=== PATIENT | female | born 1950 | race Caucasian/White ===

== ENCOUNTER → 2018-04-12 | Outpatient (CLI) | payer MEDICARE, MEDICAID ==
[~2018-04-12] MED LIST: AMLO10TA5; CEFTIN PO; CEFU500T5 PO; CIPR500T4 PO; CIPR500T78 PO; CPR500T PO; CRANBERRY PO; DCS100C PO; FLX20C; FLX20C PO; GLUCO/CHON; HCT25T; HYDR-1231 PO; HYDROCHLOROT 25 MG; HYOS0.1216 PO; HYOS0.1217 PO; IBUP400T22; LEVO500T69 PO; LISI10TA2 PO; LOSA1TAB15 PO; METO-354 PO; METO5TAB79 PO; METR500T PO; METR500T21 PO; NEBI20TA2 PO; NFNEB10T PO; NFPRILOC40 PO; OMEP-10 PO; OMEP-254 PO; ONDA-42 SL; ONDA4TAB8 PO; POTA8CAP9 PO; TRAM-21 PO; VORT20TA PO; [UNRECOGNIZED DRUG - CODE] PO; [UNRECOGNIZED DRUG - OTHER] PO
--- NOTE | 2018-04-12 17:08 | Diagnostic Imaging Report ---
INDICATION: Routine screening. Comparison is made with prior mammogram from 06/13/2013 and 09/02/2011. 2-D and 3-D bilateral screening mammography was performed with CAD. The current study was also evaluated with a Computer Aided Detection (CAD) system. FINDINGS: Both breasts are heterogeneously dense, limiting the sensitivity of mammography. Fibronodular parenchymal pattern appears to be stable. No dominant mass or malignant-appearing microcalcifications are seen. The axillae are unremarkable. IMPRESSION: No mammographic features suspicious for malignancy are identified. ACR BI-RADS Category 2: Benign findings. Result letter will be mailed to the patient. Note: At least 10% of breast cancer is not imaged by mammography. Dictated by: Dictated on workstation # [id number]
== END ==
LOC: RAD 07:56
PROVIDERS: ATTEND Nurse Practitioner Community Health
DX: Z12.31 Encounter for screening mammogram for malignant neoplasm of breast (principal)
CPT/HCPCS: 77067

== ENCOUNTER 2018-05-07 05:36 | Outpatient (CLI) | payer MEDICARE, MEDICAID ==
[~2018-05-07] VITALS: Ht 172.7 cm; Wt 127.9 kg
[~2018-05-07 05:36] MED LIST changes: -LISI10TA2 PO
[2018-05-07] MEDS ORDERED: LISI10TA2 PO (12:57)
== END 2018-05-07 13:00 | disposition home or self-care (01) ==
LOC: PREOP 05:36
PROVIDERS: ATTEND Surgery
DX: Z01.818 Encounter for other preprocedural examination (principal)

== ENCOUNTER → 2019-04-17 | Outpatient (CLI) | payer MEDICAID, MEDICARE, OTHER ==
[~2019-04-17] MED LIST changes: +LISI10TA2 PO; +METR-145 PO; -METR500T21 PO
--- NOTE | 2019-04-17 18:21 | Diagnostic Imaging Report ---
EXAMINATION: Digital mammogram bilateral screening. The current study was also evaluated with a Computer Aided Detection (CAD) system. 3-D tomosynthesis was also performed and reviewed. INDICATION: Screening. This study was compared to the prior exams of 04/12/2018 and 06/13/2013. At this time, there are no current complaints. FINDINGS: There are scattered fibroglandular densities in both breasts which could obscure a lesion. When compared to the prior study, there has been no significant change. There is no primary or secondary sign of malignancy noted. The 3D tomographic views also fail to show any sign of malignancy. IMPRESSION: There is no evidence of malignancy. ACR BI-RADS Category 1: Negative. Result letter will be mailed to the patient. Note: At least 10% of breast cancer is not imaged by mammography. Dictated by: Dictated on workstation # [id number]
== END ==
LOC: RAD 07:12
PROVIDERS: ATTEND Nurse Practitioner Community Health
DX: Z12.31 Encounter for screening mammogram for malignant neoplasm of breast (principal)
CPT/HCPCS: 77067

== ENCOUNTER → 2020-06-08 | Outpatient (CLI) | payer MEDICARE, MEDICAID | LOC: CARD 14:30 | PROVIDERS: ATTEND Nurse Practitioner Family | DX: I11.9 Hypertensive heart disease without heart failure (principal); I34.0 Nonrheumatic mitral (valve) insufficiency; I10 Essential (primary) hypertension; E78.5 Hyperlipidemia, unspecified; G47.30 Sleep apnea, unspecified; R79.82 Elevated C-reactive protein (CRP) | CPT/HCPCS: 93306 ==

== ENCOUNTER → 2020-06-12 | Outpatient (CLI) | payer MEDICARE, MEDICAID ==
[~2020-06-12] VITALS: Ht 172 cm; Wt 130.0 kg
[~2020-06-12] MED LIST changes: +CATHETER FLUSH 10 ML SYR IV PRN; +REGADENOSON 0.4 MG/5 ML SYR (LEXISCAN) IV ONE
--- NOTE | 2020-06-15 12:25 | STRESS TEST ---
DATE OF SERVICE: RESTING AND POST REGADENOSON TECHNETIUM-99M TETROFOSMIN SPECT CT IMAGING ORDERING PHYSICIAN: Kristina Guerrero APRN PRIMARY PHYSICIAN: [facility]. CLINICAL DIAGNOSES: Shortness of breath, hypertension. Baseline images were carried out after injection of 10.91 mCi of technetium-99m Tetrofosmin. This was followed by 0.4 mg regadenoson and 32 mCi of technetium-99m Tetrofosmin for stress imaging. The electrocardiogram shows sinus rhythm at baseline and did not change significantly with regadenoson infusion. The patient tolerated the procedure well. Review of images at rest and following stress indicate a small to moderate sized belinda-apical perfusion defect. Gated images show normal global left ventricular systolic function with normal regional wall motion. Left ventricular ejection fraction is calculated to be 75%. Left ventricular end diastolic volume is 71 mL. TID is absent (1.1). CONCLUSIONS: 1. This study is suggestive of a small to moderate amount of belinda-apical ischemia. 2. Normal regional wall motion. 3. Normal global left ventricular systolic function with a calculated ejection fraction of 75%. Job ID: [id number] DocumentID: [id number] Dictated Date: 06/15/2020 09:25:10 Banquet Chef Date: 06/15/2020 12:24:52 Dictated By: MEENA GARCIA MD, MA, FACP, FACC,
== END ==
LOC: CARD 07:30
PROVIDERS: ATTEND Nurse Practitioner Family
DX: I10 Essential (primary) hypertension (principal); E78.5 Hyperlipidemia, unspecified; G47.30 Sleep apnea, unspecified; R79.82 Elevated C-reactive protein (CRP); R06.00 Dyspnea, unspecified; R06.02 Shortness of breath
CPT/HCPCS: 78452; 93017; A9502

== ENCOUNTER 2020-06-30 06:57 | Day surgery (SDC) | payer MEDICARE, MEDICAID ==
[2020-06-30] VITALS (8 sets, daily range): BP systolic 127–155; BP diastolic 65–78
[~2020-06-30] VITALS: Ht 173 cm; Wt 130.0 kg
[~2020-06-30 06:57] MED LIST changes: -CATHETER FLUSH 10 ML SYR IV PRN; -REGADENOSON 0.4 MG/5 ML SYR (LEXISCAN) IV ONE
[2020-06-30] MEDS ORDERED: HEParin (CATH LAB) 2,000 ML IV ONE (07:00)
[2020-06-30] MEDS ORDERED: NS IV 1000 ML 1,000 ML ONE (07:00)
[2020-06-30] MEDS ORDERED: LIDOCAINE 1% INJ 20 ML 20 ML VIAL ONE (07:00)
[2020-06-30] MEDS ORDERED: NS IV 1000 ML 1,000 ML IV SCH ×2 (07:15→09:22)
[2020-06-30 07:24] LABS: HEMOGLOBIN 14.3 g/dL (11.5-16.0); WHITE BLOOD COUNT 12.3 10^3/uL (4.3-11.0)
[2020-06-30] MEDS ORDERED: ASPI-999 PO (07:28)
[2020-06-30] MEDS ORDERED: BUSP5TAB59 PO (07:28)
[2020-06-30] MEDS ORDERED: NEBI20TA2 PO (07:28)
[2020-06-30] MEDS ORDERED: AMLO10TA7 PO (07:28)
[2020-06-30 07:40] LABS: INR 0.9 (0.8-1.4); PROTHROMBIN TIME PATIENT 12.9 SEC (12.2-14.7)
[2020-06-30 07:48] LABS: ALANINE AMINOTRANSFERASE 32 U/L (0-55); ALBUMIN 4.2 GM/DL (3.2-4.5); ALKALINE PHOSPHATASE 104 U/L (40-136); BILIRUBIN,TOTAL 0.7 MG/DL (0.1-1.0); BUN/CREATININE RATIO 26; CALCIUM 9.5 MG/DL (8.5-10.1); CARBON DIOXIDE 24 MMOL/L (21-32); CHLORIDE 103 MMOL/L (98-107); CHOLESTEROL 209 MG/DL (< 200); CREATININE SERUM 0.74 MG/DL (0.60-1.30); GFR ESTIMATED > 60; GLUCOSE 104 MG/DL (70-105); HDL CHOLESTEROL 54 MG/DL (40-60); POTASSIUM 4.3 MMOL/L (3.6-5.0); SODIUM 143 MMOL/L (135-145); TOTAL PROTEIN 7.7 GM/DL (6.4-8.2); TRIGLYCERIDES 205 MG/DL (<150); VLDL CHOLESTEROL 41 MG/DL (5-40)
[2020-06-30] MEDS ORDERED: MIDAZOLAM 5 MG/5 ML (VERSED) VIAL ONE (08:29)
[2020-06-30] MEDS ORDERED: fentaNYL INJECTION 100 MCG/2 ML AMP ONE (08:29)
--- NOTE | 2020-06-30 09:22 | Cardiac Procedure Note-CS/ASA ---
Pre-Procedure Note Pre-Op Procedure Note H&P Reviewed The H&P was reviewed, patient examined and no changes noted. Date H&P Reviewed: Jun 30, 2020 Time H&P Reviewed: 08:55 Conscious Sedation Pre-Proced Time 08:55 ASA Score 3 For ASA 3 and 4: Consider anesthesia and medical clearance. Also, for patients with a history of failed moderate sedation consider anesthesia. Airway Lungs Heart ASA score ASA 1: a normal healthy patient ASA 2: a patient with a mild systemic disease (mid diabetes, controlled hypertension, obesity ASA 3: a patient with a severe systemic disease that limits activity (angina, COPD, prior Myocardial infarction) ASA 4: a patient with an incapacitating disease that is a constant threat to life (CHF, renal failure) ASA 5: a moribund patient not expected to survive 24 hrs. (ruptured aneurysm) ASA 6: a declared brain- patient whose organs are being harvested. For emergent operations, add the letter E after the classification Mallampati Classification Grade 2 Sedation Plan Analgesia, Amnesia, Plan communicated to team members, Discussed options with patient/fam, Discussed risks with patient/fam The patient is an appropriate candidate to undergo the planned procedure, sedation, and anesthesia. The patient immediately re-assessed prior to indication. MEENA GARCIA MD FACP FAC CCDS Jun 30, 2020 09:22
--- NOTE | 2020-06-30 09:26 | Discharge Inst-Cardiology ---
Discharge Inst-Cardiac Discharge Medications Continued Medications: Amlodipine Besylate (Amlodipine Besylate) 10 Mg Tablet 10 MG PO DAILY, TAB Aspirin (Aspirin) 81 Mg Tab.chew 81 MG PO DAILY, TAB Buspirone HCl (Buspirone HCl) 5 Mg Tablet 5 MG PO BID, TAB Nebivolol HCl (Bystolic) 20 Mg Tablet 20 MG PO DAILY, TAB TAKES 2 OF THE (20 MG TABLETS) DAILY Omeprazole Magnesium (Omeprazole Magnesium) 20 Mg Capsule.dr 20 MG PO DAILY PRN for INDIGESTION, MEENA HICKS MD FACP FAC CCDS Jun 30, 2020 09:26
--- NOTE | 2020-06-30 09:27 | Discharge Inst-Post CATH ---
Discharge Inst-CATH/EP Post Cardiac Cath/EP D/C Inst Follow Up/Plan F/u with Dr Wray in 2 weeks ACTIVITY * Go Home directly and rest. * Limit activity of the leg (or wrist if it was used) for 7 days including aerobics, swimming, jogging, bicycling, etc. * Restrict stair-climbing for 7 days if possible, if not, climb up with your n on-cath leg, then bring together on the same step. * Avoid lifting, pushing, pulling or excessive movement of the affected ex tremity for 7 days. * Customary sexual activity may be resumed after 2 days-use caution not to use a position that strains or causes pain to the affected extremity. * No driving for 24 hours. * NO SMOKING. * Avoid straining for bowel movements for 7 days. * Gentle walking on level ground is allowed. * Returning to work will depend on the type of procedure and the results. Your doctor will discuss this with you. CALL YOUR DOCTOR FOR ANY OF THE FOLLOWING: *If bleeding from the puncture site occurs- Apply gentle pressure to site with clean cloth and call your doctor or EMS. * If a knot or lump forms under the skin, increases in size, or causes pain. * If bruising appears to be worsening or moving further down your leg instead of disappearing. * Temperature above 101 F. CARE OF YOUR GROIN INCISION; * Bruising or purple discoloration of the skin near the puncture site is common. * You may shower only, no bathtub bathing for 5 days. Be careful to avoid slipping as your leg may feel stiff. * If a closure device was used on your femoral artery, please see the attached guide regarding care of the device and your leg. * Leave dressing on FOR 24 hours. CARE OF YOUR WRIST INCISION; * Bruising or purple discoloration of the skin near the puncture site is common. * You may shower. * DO NOT submerge wrist. * Leave dressing on FOR 24 hours. MEENA WRAY MD [facility] CCDS Jun 30, 2020 09:27
[2020-06-30] MEDS ORDERED: PATIENT MAY USE OWN MEDS, ALL PO SCH (09:30)
--- NOTE | 2020-06-30 10:12 | CARDIAC CATHETERIZATION ---
DATE OF SERVICE: 06/30/2020 CARDIAC CATHETERIZATION REPORT The patient is a 69-year-old lady who has had chest discomfort and shortness of breath. Myocardial perfusion imaging was indicative of anteroapical ischemia. Cardiac catheterization was carried out after having obtained an informed consent. DESCRIPTION OF PROCEDURE: She was brought to the cardiac catheterization laboratory in a fasting state. Right groin was prepared and draped in the usual sterile fashion. Lidocaine 1% was used for local anesthesia. Modified Seldinger technique was used to advance a 5-Dutch sheath into the right femoral artery, 5-Dutch JL4 catheter was used for left coronary angiography, 5-Dutch JR4 catheter was used for right coronary angiography, 5-Dutch pigtail catheter was used for left heart catheterization and left ventricular angiography. Angiography of the right femoral artery was carried out through the sheath. Mynx was used to achieve hemostasis following sheath removal. She tolerated the procedure well. HEMODYNAMICS: Left ventricular end-diastolic pressure following coronary angiography was 16 mmHg. There was no significant pressure gradient on pullback across the aortic valve. Ascending aortic pressure was 133/76 with a mean of 97 mmHg. CORONARY ANGIOGRAPHY: Left main coronary artery, left anterior descending artery, left circumflex artery, right coronary artery do not exhibit any angiographically significant disease. Right coronary artery is dominant. LEFT VENTRICULAR ANGIOGRAPHY: Left ventricular angiography was carried out in the right anterior oblique projection. Global left ventricular systolic function is normal. No regional wall motion abnormality was seen. Left ventricular ejection fraction is approximately 60%. CONCLUSIONS: 1. No angiographically significant coronary artery disease. 2. Normal global left ventricular systolic function with ejection fraction of 60%. 3. Mild elevation of left ventricular end-diastolic pressure. DISCUSSION AND RECOMMENDATIONS: Based on results of the study, chest discomfort does not appear to be of coronary origin. Myocardial perfusion imaging appears to have been false positive. Continuing risk factor modification is advised. Outpatient followup is advised. Job ID: [id number] DocumentID: [id number] Dictated Date: 06/30/2020 09:44:44 Technology Solutions Architect Date: 06/30/2020 10:11:44 Dictated By: MEENA GARCIA MD, MA, FACP, FACC,
== END 2020-06-30 12:50 | disposition home or self-care (01) ==
LOC: CATH 06:57 → SDC 09:36 → CATH 12:50
PROVIDERS: ATTEND Internal Medicine Cardiovascular Disease
DX: R06.00 Dyspnea, unspecified (principal); R07.89 Other chest pain; R53.83 Other fatigue; I10 Essential (primary) hypertension; G47.33 Obstructive sleep apnea (adult) (pediatric); K21.9 Gastro-esophageal reflux disease without esophagitis; K58.9 Irritable bowel syndrome, unspecified; E66.9 Obesity, unspecified; F32.9 Major depressive disorder, single episode, unspecified; F41.9 Anxiety disorder, unspecified; Z91.19 Patient's noncompliance with other medical treatment and regimen; Z79.899 Other long term (current) drug therapy; Z68.41 Body mass index [BMI] 40.0-44.9, adult; Z79.82 Long term (current) use of aspirin
CPT/HCPCS: 36430; 80053; 80061; 85027; 85610; 85730; 87081; 93458; C1760; C1894; 36415

== ENCOUNTER 2021-02-24 16:42 | Emergency (ER) | payer MEDICARE, MEDICAID ==
[~2021-02-24] VITALS: Ht 172.7 cm; Wt 113.4 kg
[~2021-02-24 16:42] MED LIST changes: +AMLO-251 PO; +ASPI-999 PO; +BUSP5TAB59 PO; +CIPR500T5 PO; -LISI10TA2 PO; +LISI10TA25 PO
[2021-02-24] MEDS ORDERED: ONDANSETRON 4 MG/2 ML (SDV) Z0FRAN IVP ONE (17:00)
[2021-02-24] MEDS ORDERED: NS IV 1000 ML 1,000 ML IV ONE ×2 (17:00→18:30)
[2021-02-24 17:51] LABS: BASOPHILS % (AUTO) 0 % (0-10); EOSINOPHILS % (AUTO) 0 % (0-10); HEMATOCRIT 44 % (35-52); HEMOGLOBIN 14.7 g/dL (11.5-16.0); LYMPHOCYTES # (AUTO) 0.8 10^3/uL (1.0-4.0); LYMPHOCYTES % (AUTO) 7 % (12-44); MEAN CORPUSCULAR HEMOGLOBIN 30 pg (25-34); MEAN CORPUSCULAR HGB CONC 34 g/dL (32-36); MEAN CORPUSCULAR VOLUME 89 fL (80-99); MEAN PLATELET VOLUME 11.4 fL (9.0-12.2); MONOCYTES # (AUTO) 0.2 10^3/uL (0.0-1.0); MONOCYTES % (AUTO) 2 % (0-12); NEUTROPHILS # (AUTO) 10.8 10^3/uL (1.8-7.8); NEUTROPHILS % (AUTO) 91 % (42-75); PLATELET COUNT 312 10^3/uL (130-400); WHITE BLOOD COUNT 11.9 10^3/uL (4.3-11.0)
--- NOTE | 2021-02-24 17:56 | ED GI ---
General Chief Complaint: Abdominal/GI Problems Stated Complaint: VOMMITTING Nursing Triage Note: PT AMBULATE TO ROOM 02 WITH C/O VOMITING "EVERY 2-3 MINUTES SINCE 0800 THIS MORNING". PT DENIES DIARRHEA. Sepsis Screen: No Definite Risk History of Present Illness Date Seen by Provider: Feb 24, 2021 Time Seen by Provider: 17:00 Initial Comments This is a well-appearing 70-year-old female who presents to the ER with complaints of nausea vomiting since this morning. States she had sudden onset of symptoms and has been vomiting nonstop today. She has continued to dry heave and expel stomach acid. Has not taken anything prior to arrival. Is unable to keep anything down even fluids. Denies fever, chills, cough, shortness of breath, chest pain, abdominal pain, diarrhea, dysuria, or hematuria. Allergies and Home Medications Allergies Coded Allergies: No Known Drug Allergies (Unverified , 05/07/18) Home Medications Amlodipine Besylate 10 Mg Tablet, 10 MG PO DAILY, (Reported) Aspirin 81 Mg Tab.chew, 81 MG PO DAILY, (Reported) Buspirone HCl 5 Mg Tablet, 5 MG PO BID, (Reported) Nebivolol HCl 20 Mg Tablet, 20 MG PO DAILY, (Reported) TAKES 2 OF THE (20 MG TABLETS) DAILY Omeprazole Magnesium 20 Mg Capsule.dr, 20 MG PO DAILY PRN for INDIGESTION, (Reported) Promethazine HCl 25 Mg Tablet, 25 MG PO Q6H PRN for NAUSEA/VOMITING Prescribed by: ALEX BLAS on 02/24/211939 Patient Home Medication List Home Medication List Reviewed: Yes Review of Systems Review of Systems Constitutional: no symptoms reported EENTM: No Symptoms Reported Respiratory: No Symptoms Reported Cardiovascular: No Symptoms Reported Gastrointestinal: See HPI Genitourinary: No Symptoms Reported Musculoskeletal: no symptoms reported Skin: no symptoms reported Psychiatric/Neurological: No Symptoms Reported Endocrine: No Symptoms Reported Hematologic/Lymphatic: No Symptoms Reported Past Gwgernz-Chpcgh-Baqsue Hx Patient Social History Alcohol Use: Denies Use Smoking Status: Never a Smoker Recent Infectious Disease Expo: No Recent Hopitalizations: No Immunizations Up To Date Tetanus Booster (TDap): Unknown PED Vaccines UTD: No Date of Pneumonia Vaccine: Jul 10, 2019 Date of Influenza Vaccine: Jul 10, 2019 Seasonal Allergies Seasonal Allergies: No Past Medical History Surgeries: Yes (LAP OVARIAN CYSTECTOMY, ERCP, COLONOSCOPY) Gallbladder Respiratory: No Sleep Apnea Currently Using CPAP: No Cardiac: Yes Hypertension Neurological: No Reproductive Disorders: No Female Reproductive Disorders: Ovarian Cyst Sexually Transmitted Disease: No HIV/AIDS: No UTI-Chronic Gastrointestinal: Yes Gastroesophageal Reflux, Diverticulosis, Hiatal Hernia Musculoskeletal: No Endocrine: No HEENT: No Loss of Vision: Bilateral Hearing Impairment: Denies Cancer: No Psychosocial: Yes Anxiety Integumentary: Yes Psoriasis Blood Disorders: No Adverse Reaction/Blood Tranf: No (N/A) Family Medical History No Family History of: AIDS Abdominal aortic aneurysm [place]'s disease Alcoholism Alzheimer's disease Aphasia Arthritis Asthma Cancer of mouth Cardiovascular disease Cataracts Colon cancer Completed stroke Congenital disease Congenital heart disease Coronary thrombosis Cystic fibrosis Deafness or hearing loss Dementia Diabetes mellitus Drug abuse Dysphasia Fibrocystic disease of breast Gastroenteritis Glaucoma Headache disorder Hypercholesterolemia Hypertension Infertility Kidney disease Myocardial infarction Neoplasm (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 0.0oz. 127.481992nw; 38.00 BMI Method:Stated General Appearance: WD/WN, no apparent distress HEENT: PERRL/EOMI, normal ENT inspection, pharynx normal Neck: full range of motion, normal inspection Respiratory: lungs clear, normal breath sounds, no respiratory distress, no accessory muscle use Cardiovascular: regular rate, rhythm, no murmur Gastrointestinal: normal bowel sounds, non tender, soft Extremities: normal range of motion, non-tender, normal inspection Neurologic/Psychiatric: no motor/sensory deficits, alert, normal mood/affect, oriented x 3 Skin: normal color, warm/dry Progress/Results/Core Measures Results/Orders Lab Results Laboratory Tests Test 02/24/21 17:16 02/24/21 18:43 Range/Units White Blood Count 11.9 H 4.3-11.0 10^3/uL Red Blood Count 4.89 3.80-5.11 10^6/uL Hemoglobin 14.7 11.5-16.0 g/dL Hematocrit 44 35-52 % Mean Corpuscular Volume 89 80-99 fL Mean Corpuscular Hemoglobin 30 25-34 pg Mean Corpuscular Hemoglobin Concent 34 32-36 g/dL Red Cell Distribution Width 12.2 10.0-14.5 % Platelet Count 312 130-400 10^3/uL Mean Platelet Volume 11.4 9.0-12.2 fL Immature Granulocyte % (Auto) 0 % Neutrophils (%) (Auto) 91 H 42-75 % Lymphocytes (%) (Auto) 7 L 12-44 % Monocytes (%) (Auto) 2 0-12 % Eosinophils (%) (Auto) 0 0-10 % Basophils (%) (Auto) 0 0-10 % Neutrophils # (Auto) 10.8 H 1.8-7.8 10^3/uL Lymphocytes # (Auto) 0.8 L 1.0-4.0 10^3/uL Monocytes # (Auto) 0.2 0.0-1.0 10^3/uL Eosinophils # (Auto) 0.0 0.0-0.3 10^3/uL Basophils # (Auto) 0.0 0.0-0.1 10^3/uL Immature Granulocyte # (Auto) 0.0 0.0-0.1 10^3/uL Neutrophils % (Manual) 90 % Lymphocytes % (Manual) 8 % Monocytes % (Manual) 2 % Eosinophils % (Manual) 0 % Basophils % (Manual) 0 % Band Neutrophils 0 % Blood Morphology Comment NORMAL Sodium Level 139 135-145 MMOL/L Potassium Level 4.0 3.6-5.0 MMOL/L Chloride Level 101 98-107 MMOL/L Carbon Dioxide Level 25 21-32 MMOL/L Anion Gap 13 5-14 MMOL/L Blood Urea Nitrogen 12 7-18 MG/DL Creatinine 0.81 0.60-1.30 MG/DL Estimat Glomerular Filtration Rate > 60 BUN/Creatinine Ratio 15 Glucose Level 145 H 70-105 MG/DL Calcium Level 10.1 8.5-10.1 MG/DL Corrected Calcium 8.5-10.1 MG/DL Total Bilirubin 0.8 0.1-1.0 MG/DL Aspartate Amino Transf (AST/SGOT) 36 H 5-34 U/L Alanine Aminotransferase (ALT/SGPT) 62 H 0-55 U/L Alkaline Phosphatase 92 40-136 U/L Total Protein 8.2 6.4-8.2 GM/DL Albumin 4.6 H 3.2-4.5 GM/DL Urine Color YELLOW Urine Clarity CLEAR Urine pH 7.5 5-9 Urine Specific [place] 1.015 L 1.016-1.022 Urine Protein NEGATIVE NEGATIVE Urine Glucose (UA) NEGATIVE NEGATIVE Urine Ketones 1+ H NEGATIVE Urine Nitrite NEGATIVE NEGATIVE Urine Bilirubin NEGATIVE NEGATIVE Urine Urobilinogen 1.0 < = 1.0 MG/DL Urine Leukocyte Esterase NEGATIVE NEGATIVE Urine RBC (Auto) TRACE-I NEGATIVE Urine RBC NONE /HPF Urine WBC NONE /HPF Urine Squamous Epithelial Cells NONE /HPF Urine Crystals NONE /LPF Urine Bacteria NEGATIVE /HPF Urine Casts NONE /LPF Urine Mucus NEGATIVE /LPF Urine Culture Indicated NO My Orders Orders - ALEX BLAS ROOF CEMENT AND PAINT MAKER HELPER Ua Culture If Indicated (02/24/21 17:00) Ondansetron Injection (Zofran Injectio (02/24/21 17:00) Ns Iv 1000 Ml (Sodium Chloride 0.9%) (02/24/21 17:00) Cbc With Automated Diff (02/24/21 17:45) Comprehensive Metabolic Panel (02/24/21 17:45) Manual Differential (02/24/21 17:16) Promethazine Injection (Phenergan Injec (02/24/21 18:00) Ns Iv 1000 Ml (Sodium Chloride 0.9%) (02/24/21 18:30) Diphenhydramine Injection (Benadryl Inje (02/24/21 19:45) Ketorolac Injection (Toradol Injection) (02/24/21 19:45) Rx-Promethazine Hcl (Rx-Phenergan Supp) (02/24/21 19:42) Ketorolac Injection (Toradol Injection) (02/24/21 19:38) Medications Given in ED Current Medications Medications Dose Ordered Sig/Dane Route Start Time Stop Time Status Last Admin Dose Admin Diphenhydramine HCl 25 mg ONCE ONCE IM 02/24/21 19:45 02/24/21 19:46 DC 02/24/21 20:00 25 MG Ketorolac Tromethamine 30 mg STK-MED ONCE .ROUTE 02/24/21 19:38 02/24/21 19:47 DC 02/24/21 20:00 30 MG Ondansetron HCl 4 mg ONCE ONCE IVP 02/24/21 17:00 02/24/21 17:01 DC 02/24/21 17:16 4 MG Promethazine HCl 25 mg ONCE ONCE IVP 02/24/21 18:00 02/24/21 18:01 DC 02/24/21 18:43 25 MG Sodium Chloride 1,000 ml @ 999 mls/hr Q1H ONCE IV 02/24/21 17:00 02/24/21 18:00 DC 02/24/21 17:16 999 MLS/HR Sodium Chloride 1,000 ml @ 999 mls/hr Q1H ONCE IV 02/24/21 18:30 02/24/21 19:30 DC 02/24/21 18:43 999 MLS/HR Vital Signs/I&O 02/24/21 02/24/21 16:51 20:30 Temp 36.2 Pulse 66 76 Resp 16 17 B/P (MAP) 192/111 (138) 135/72 Pulse Ox 97 O2 Delivery Room Air Room Air Blood Pressure Mean: 138 Progress Progress Note : Progress Note Able to get nausea/vomiting under control. Reported feeling much improved. Reviewed discharge POC and she is agreeable with plan. Departure Impression Primary Impression: Gastroenteritis Disposition: 01 HOME, SELF-CARE Condition: Improved Departure-Patient Inst. Decision time for Depature: 19:38 Referrals: [facility] (PCP) Primary Care Physician PARISA SOMMERS (Family) Primary Care Physician Patient Instructions: Viral Gastroenteritis, Adult (DC) Add. Discharge Instructions: Plan: 1. Drink clear liquids until your nausea has resolved. Advance diet as tolerated. 2. Use Phenergan 25mg by mouth every 6 hours as needed for nausea/vomiting. 3. Return to ER for any new, concerning, or worsening symptoms. All discharge instructions reviewed with patient and/or family. Voiced understanding. Scripts Promethazine HCl (Promethazine Tablet) 25 Mg Tablet 25 MG PO Q6H PRN for NAUSEA/VOMITING, #10 TAB 0 Refills Prov: ALEX BLAS ROO[employer] CEMENT AND PA[employer]KER HELPER 02/24/21 ALEX BLAS ROO[employer] CEMENT AND PAINT MAKER HELPER Feb 24, 2021 17:56
[2021-02-24 17:57] LABS: ALBUMIN 4.6 GM/DL (3.2-4.5)
[2021-02-24 17:58] LABS: CHLORIDE 101 MMOL/L (98-107); SODIUM 139 MMOL/L (135-145)
[2021-02-24 17:59] LABS: CALCIUM 10.1 MG/DL (8.5-10.1)
[2021-02-24 18:00] LABS: GLUCOSE 145 MG/DL (70-105); TOTAL PROTEIN 8.2 GM/DL (6.4-8.2)
[2021-02-24] MEDS ORDERED: PROMETHAZINE INJ 25 MG/ML (PHENERGAN) AMP IVP ONE (18:00)
[2021-02-24 18:01] LABS: CARBON DIOXIDE 25 MMOL/L (21-32)
[2021-02-24 18:02] LABS: BILIRUBIN,TOTAL 0.8 MG/DL (0.1-1.0)
[2021-02-24 18:03] LABS: ALKALINE PHOSPHATASE 92 U/L (40-136); CREATININE SERUM 0.81 MG/DL (0.60-1.30); GFR ESTIMATED > 60
[2021-02-24 18:04] LABS: BUN/CREATININE RATIO 15
[2021-02-24 18:06] LABS: ALANINE AMINOTRANSFERASE 62 U/L (0-55)
[2021-02-24 18:17] LABS: BAND NEUTROPHILS 0 %; BASOPHILS % (MANUAL) 0 %; EOSINOPHILS % (MANUAL) 0 %; LYMPHOCYTES % (MANUAL) 8 %; MONOCYTES % (MANUAL) 2 %; NEUTROPHILS % (MANUAL) 90 %; RBC MORPH NORMAL
[2021-02-24 18:52] LABS: BILIRUBIN,URINE NEGATIVE (NEGATIVE); CLARITY,URINE CLEAR; COLOR,URINE YELLOW; GLUCOSE, URINE (UA) NEGATIVE (NEGATIVE); KETONES,URINE 1+ (NEGATIVE); LEUKOCYTE ESTERASE ,URINE NEGATIVE (NEGATIVE); NITRITE,URINE NEGATIVE (NEGATIVE); PH,URINE 7.5 (5-9); PROTEIN,URINE NEGATIVE (NEGATIVE)
[2021-02-24 19:03] LABS: BACTERIA,URINE NEGATIVE /HPF
[2021-02-24] MEDS ORDERED: KETOROLAC 30 MG/ML VIAL ONE (19:38)
[2021-02-24] MEDS ORDERED: PROM25TA14 PO (19:40)
[2021-02-24] MEDS ORDERED: RX-PHENERGAN 25 MG SUPP PPK#3 PR STA (19:42)
[2021-02-24] MEDS ORDERED: KETOROLAC 15 MG/ML VIAL IVP ONE (19:45)
[2021-02-24] MEDS ORDERED: diphenhydrAMINE 50 MG/ML INJ (BENADRYL) IM ONE (19:45)
[2021-02-24 20:30] VITALS: BP 135/72
== END 2021-02-24 20:30 | disposition home or self-care (01) ==
LOC: EDUNIT# 16:42 → ER 16:45
DX: K52.9 Noninfective gastroenteritis and colitis, unspecified (principal); I10 Essential (primary) hypertension; K21.9 Gastro-esophageal reflux disease without esophagitis; F41.9 Anxiety disorder, unspecified; Z79.82 Long term (current) use of aspirin; Z79.899 Other long term (current) drug therapy
CPT/HCPCS: 36415; 80053; 81000; 85007; 85027

== ENCOUNTER 2021-02-28 15:32 | Emergency (ER) | payer MEDICARE, MEDICAID ==
[~2021-02-28 15:32] MED LIST changes: +PROM25TA14 PO
== END 2021-02-28 16:27 | disposition left against medical advice (07) ==
LOC: EDUNIT# 15:32 → ER 15:34
DX: R11.10 Vomiting, unspecified (principal); R19.7 Diarrhea, unspecified

== ENCOUNTER 2021-03-03 11:39 | Observation (INO) | payer MEDICARE, MEDICAID ==
[~2021-03-03] VITALS: Ht 172 cm; Wt 115.0 kg
--- NOTE | 2021-03-03 12:05 | ED Abdominal Pain ---
General Stated Complaint: N/V Source of Information: Patient Exam Limitations: No Limitations History of Present Illness Date Seen by Provider: Mar 03, 2021 Time Seen by Provider: 11:45 Initial Comments Patient is a 70-year-old female who presents to the emergency department today with a chief complaint of nausea and vomiting off and on for the last week. Patient has been seen here in the emergency department with the symptoms as well as at [facility]. Patient states that she has not urinated in a day and a half. She complains of shortness of breath with exertion. She feels generally weak. She feels lightheaded when she gets up and moves around. Patient has never had symptoms like this before. She denies any fevers or chills. No burning with urination. No diarrhea currently or black or bloody stools. Patient states that she is actually very healthy for 70 years of age she only has a history of hypertension. She has been on diet medications prescribed by her primary care provider. She states these medications were recently decreased. Patient states she is unsure of what started her symptoms. She states that 1 day she was eating and the next moment vomiting and has not stopped since. Of note the patient is quite tachycardic on telemetry and on auscultation. She is anywhere from 120 256 beats a minute and an A. fib rhythm. She has no history of atrial fibrillation in the past. All other review of systems reviewed and negative except as stated above. Timing/Duration: 1 Week Severity/Quality: Cramping Location: Generalized Abdomen Associated Symptoms: Nausea/Vomiting (With vomiting), Other ("Black sand" when she vomits) Allergies and Home Medications Allergies Coded Allergies: No Known Drug Allergies (Unverified , 05/07/18) Home Medications Amlodipine Besylate 10 Mg Tablet, 10 MG PO DAILY, (Reported) Aspirin 81 Mg Tab.chew, 81 MG PO DAILY, (Reported) Buspirone HCl 5 Mg Tablet, 5 MG PO BID, (Reported) Nebivolol HCl 20 Mg Tablet, 20 MG PO DAILY, (Reported) TAKES 2 OF THE (20 MG TABLETS) DAILY Omeprazole Magnesium 20 Mg Capsule.dr, 20 MG PO DAILY PRN for INDIGESTION, (Reported) Promethazine HCl 25 Mg Tablet, 25 MG PO Q6H PRN for NAUSEA/VOMITING Prescribed by: ALEX BLAS on 02/24/211939 Patient Home Medication List Home Medication List Reviewed: Yes Review of Systems Review of Systems Constitutional: see HPI EENTM: No Symptoms Reported Respiratory: No Symptoms Reported Cardiovascular: No Symptoms Reported Gastrointestinal: Nausea, Vomiting, Other (Reported "black sand" in her vomitus) Genitourinary: No Symptoms Reported Musculoskeletal: no symptoms reported Skin: no symptoms reported Psychiatric/Neurological: No Symptoms Reported, Weakness, Other (Dizziness with standing) All Other Systems Reviewed Negative Unless Noted: Yes Past Ldzlyvv-Yozgfv-Hhfjmz Hx Patient Social History Recent Hopitalizations: No Immunizations Up To Date Tetanus Booster (TDap): Unknown PED Vaccines UTD: No Date of Pneumonia Vaccine: Jul 10, 2019 Date of Influenza Vaccine: Jul 10, 2019 Seasonal Allergies Seasonal Allergies: No Past Medical History Surgeries: Yes (LAP OVARIAN CYSTECTOMY, ERCP, COLONOSCOPY) Gallbladder Respiratory: No Sleep Apnea Currently Using CPAP: No Cardiac: Yes Hypertension Neurological: No Reproductive Disorders: No Female Reproductive Disorders: Ovarian Cyst Sexually Transmitted Disease: No HIV/AIDS: No UTI-Chronic Gastrointestinal: Yes Gastroesophageal Reflux, Diverticulosis, Hiatal Hernia Musculoskeletal: No Endocrine: No HEENT: No Loss of Vision: Bilateral Hearing Impairment: Denies Cancer: No Psychosocial: Yes Anxiety Integumentary: Yes Psoriasis Blood Disorders: No Adverse Reaction/Blood Tranf: No (N/A) Family Medical History No Family History of: AIDS Abdominal aortic aneurysm [place]'s disease Alcoholism Alzheimer's disease Aphasia Arthritis Asthma Cancer of mouth Cardiovascular disease Cataracts Colon cancer Completed stroke Congenital disease Congenital heart disease Coronary thrombosis Cystic fibrosis Deafness or hearing loss Dementia Diabetes mellitus Drug abuse Dysphasia Fibrocystic disease of breast Gastroenteritis Glaucoma Headache disorder Hypercholesterolemia Hypertension Infertility Kidney disease Myocardial infarction Neoplasm (PT HAD MATERNAL UNCLE WHO FROM BREAST CANCER ) Not obtainable due to adoption Osteoporosis Parkinson's disease Prostate cancer Psychosocial problem Respiratory disorder Seizure disorder Severe allergy Thyroid disease Tuberculosis Visual disorder No Pertinent Family Hx Physical Exam Vital Signs Vital Signs - First Documented 03/03/21 11:39 Temp 36.1 Pulse 120 Resp 16 B/P (MAP) 107/70 (82) Pulse Ox 96 O2 Delivery Room Air Capillary Refill : Height/Weight/BMI Height: 5'8.00" Weight: 282lbs. 0.0oz. 127.004976ml; 38.00 BMI Method:Stated General Appearance: WD/WN, no apparent distress HEENT: other (Dry oral mucosa) Neck: normal inspection Respiratory: normal breath sounds, no respiratory distress, no accessory muscle use Cardiovascular: tachycardia, irregularly irregular Gastrointestinal: non tender, soft Extremities: normal range of motion, normal inspection, no pedal edema, no calf tenderness Neurologic/Psychiatric: alert, normal mood/affect, oriented x 3 Skin: normal color, warm/dry Progress/Results/Core Measures Results/Orders Lab Results Laboratory Tests Test 03/03/21 12:00 Range/Units White Blood Count 15.8 H 4.3-11.0 10^3/uL Red Blood Count 5.07 3.80-5.11 10^6/uL Hemoglobin 15.3 11.5-16.0 g/dL Hematocrit 44 35-52 % Mean Corpuscular Volume 88 80-99 fL Mean Corpuscular Hemoglobin 30 25-34 pg Mean Corpuscular Hemoglobin Concent 35 32-36 g/dL Red Cell Distribution Width 12.1 10.0-14.5 % Platelet Count 384 130-400 10^3/uL Mean Platelet Volume 11.4 9.0-12.2 fL Immature Granulocyte % (Auto) 1 % Neutrophils (%) (Auto) 73 42-75 % Lymphocytes (%) (Auto) 19 12-44 % Monocytes (%) (Auto) 7 0-12 % Eosinophils (%) (Auto) 1 0-10 % Basophils (%) (Auto) 0 0-10 % Neutrophils # (Auto) 11.5 H 1.8-7.8 10^3/uL Lymphocytes # (Auto) 3.0 1.0-4.0 10^3/uL Monocytes # (Auto) 1.0 0.0-1.0 10^3/uL Eosinophils # (Auto) 0.2 0.0-0.3 10^3/uL Basophils # (Auto) 0.1 0.0-0.1 10^3/uL Immature Granulocyte # (Auto) 0.1 0.0-0.1 10^3/uL Neutrophils % (Manual) 63 % Lymphocytes % (Manual) 20 % Monocytes % (Manual) 10 % Eosinophils % (Manual) 2 % Reactive Lymphocytes 5 % Blood Morphology Comment NORMAL Prothrombin Time 14.1 12.2-14.7 SEC INR Comment 1.1 0.8-1.4 Activated Partial Thromboplast Time 62 H 24-35 SEC Sodium Level 138 135-145 MMOL/L Potassium Level 3.0 L 3.6-5.0 MMOL/L Chloride Level 96 L 98-107 MMOL/L Carbon Dioxide Level 25 21-32 MMOL/L Anion Gap 17 H 5-14 MMOL/L Blood Urea Nitrogen 30 H 7-18 MG/DL Creatinine 1.48 H 0.60-1.30 MG/DL Estimat Glomerular Filtration Rate 35 BUN/Creatinine Ratio 20 Glucose Level 101 70-105 MG/DL Calcium Level 10.0 8.5-10.1 MG/DL Corrected Calcium 9.9 8.5-10.1 MG/DL Total Bilirubin 1.8 H 0.1-1.0 MG/DL Aspartate Amino Transf (AST/SGOT) 31 5-34 U/L Alanine Aminotransferase (ALT/SGPT) 61 H 0-55 U/L Alkaline Phosphatase 88 40-136 U/L Troponin I < 0.028 <0.028 NG/ML Total Protein 8.0 6.4-8.2 GM/DL Albumin 4.1 3.2-4.5 GM/DL Lipase 37 8-78 U/L My Orders Orders - SUZAN SYLVESTER MD Cbc With Automated Diff (03/03/21 12:05) Comprehensive Metabolic Panel (03/03/21 12:05) Lipase (03/03/21 12:05) Ed Iv/Invasive Line Start (03/03/21 12:05) Ns Iv 1000 Ml (Sodium Chloride 0.9%) (03/03/21 12:15) Ekg Tracing (03/03/21 12:05) Troponin I (03/03/21 12:05) Chest 1 View, Ap/Pa Only (03/03/21 12:05) Manual Differential (03/03/21 12:00) Protime With Inr (03/03/21 12:43) Partial Thromboplastin Time (03/03/21 12:43) Ua Culture If Indicated (03/03/21 13:00) Ns Iv 1000 Ml (Sodium Chloride 0.9%) (03/03/21 13:15) Vital Signs/I&O 03/03/21 03/03/21 11:39 13:01 Temp 36.1 Pulse 120 82 97 108 Resp 16 B/P (MAP) 107/70 (82) 114/63 (80) 119/83 (95) 113/75 (88) Pulse Ox 96 O2 Delivery Room Air Progress Progress Note : Time: 13:11 Progress Note Patient reevaluated, resting in the bed her heart rate is still A. fib in the 80s. When she stands up she bounces up to about 110. Her blood pressure is stable and she clinically feels much better. Case is discussed with Dr. Mustafa who recommends observation admission with IV fluids and potassium replacement. We will consult cardiology for the new onset A. fib and echo today. Patient has no abdominal pain still. She has not vomited here in the emergency department she is currently sipping on Gatorade. All questions are sought and answered. Initial ECG Impression Date: Mar 03, 2021 Initial ECG Impression Time: 11:58 Initial ECG Rate: 111 Initial ECG Rhythm: A Fib/Flutter Initial ECG Intervals QTC 496, QRS 104 Initial ECG Impression: Atrial Fibrillation w/RVR Diagnostic Imaging Diagonstic Imaging: Xray Plain Films/CT/US/NM/MRI: chest Comments [facility], [place] NAME: BEATRIS HERNANDEZ [facility] REC#: [id number] PT STATUS: REG ER : 1950 PHYSICIAN: SUZAN SYLVESTER MD ADMIT DATE: 03/03/21/ER Draft Date of Exam:03/03/21 CHEST 1 VIEW, AP/PA ONLY EXAMINATION: Portable erect AP chest at 12:36. INDICATION: Weakness. The heart size is within normal limits and stable when compared to 09/25/2011. In the interval since the prior exam minimal atelectasis has developed in the left costophrenic angle. The lungs are otherwise generally clear. There is no evidence for failure, pneumonia or for a significant pleural effusion. The mediastinum is not widened. The osseous structures are intact. IMPRESSION: Aside from the development of minimal atelectasis in the left lung base there has been no significant change since the prior study. There is no acute cardiopulmonary abnormality noted. Dictated on workstation # [id number] Dict: 03/03/21 1239 Trans: 03/03/21 1241 [facility] [id number] Interpreted by: FRANCO BRO MD Electronically signed by: Departure Communication (Admissions) Time/Spoke to Admitting Phy: 13:[address] Mustafa Time/Spoke to Consulting Phy: 13:[address] Polanco on for cardiology Impression Primary Impression: Acute kidney injury Additional Impressions: Dehydration Hypokalemia Atrial fibrillation with RVR Disposition: ADMITTED INPATIENT Condition: Stable Admissions Decision to Admit Reason: Admit from ER (General) Decision to Admit/Date: Mar 03, 2021 Time/Decision to Admit Time: 13:12 Departure-Patient Inst. Referrals: [facility] [place] Primary Care Physician ANDRES AKHTAR APRN (Family) Primary Care Physician SUZAN SYLVESTER MD Mar 03, 2021 12:05
[2021-03-03 12:11] LABS: BASOPHILS # (AUTO) 0.1 10^3/uL (0.0-0.1); BASOPHILS % (AUTO) 0 % (0-10); EOSINOPHILS # (AUTO) 0.2 10^3/uL (0.0-0.3); EOSINOPHILS % (AUTO) 1 % (0-10); HEMATOCRIT 44 % (35-52); HEMOGLOBIN 15.3 g/dL (11.5-16.0); LYMPHOCYTES % (AUTO) 19 % (12-44); MEAN CORPUSCULAR HEMOGLOBIN 30 pg (25-34); MEAN CORPUSCULAR HGB CONC 35 g/dL (32-36); MEAN CORPUSCULAR VOLUME 88 fL (80-99); MEAN PLATELET VOLUME 11.4 fL (9.0-12.2); MONOCYTES % (AUTO) 7 % (0-12); NEUTROPHILS # (AUTO) 11.5 10^3/uL (1.8-7.8); NEUTROPHILS % (AUTO) 73 % (42-75); PLATELET COUNT 384 10^3/uL (130-400); WHITE BLOOD COUNT 15.8 10^3/uL (4.3-11.0)
[2021-03-03] MEDS ORDERED: NS IV 1000 ML 1,000 ML IV SCH ×2 (12:15→13:15)
[2021-03-03 12:28] LABS: ALBUMIN 4.1 GM/DL (3.2-4.5); CHLORIDE 96 MMOL/L (98-107); SODIUM 138 MMOL/L (135-145)
[2021-03-03 12:31] LABS: GLUCOSE 101 MG/DL (70-105)
[2021-03-03 12:32] LABS: CARBON DIOXIDE 25 MMOL/L (21-32)
[2021-03-03 12:33] LABS: BILIRUBIN,TOTAL 1.8 MG/DL (0.1-1.0)
[2021-03-03 12:34] LABS: ALKALINE PHOSPHATASE 88 U/L (40-136); CREATININE SERUM 1.48 MG/DL (0.60-1.30); GFR ESTIMATED 35
[2021-03-03 12:35] LABS: BUN/CREATININE RATIO 20
[2021-03-03 12:37] LABS: ALANINE AMINOTRANSFERASE 61 U/L (0-55)
[2021-03-03 12:38] LABS: LIPASE 37 U/L (8-78)
[2021-03-03 12:40] LABS: EOSINOPHILS % (MANUAL) 2 %; LYMPHOCYTES % (MANUAL) 20 %; MONOCYTES % (MANUAL) 10 %; NEUTROPHILS % (MANUAL) 63 %; RBC MORPH NORMAL; REACTIVE LYMPHOCYTES 5 %
--- NOTE | 2021-03-03 12:42 | Diagnostic Imaging Report ---
EXAMINATION: Portable erect AP chest at 12:36 p.m. INDICATION: Weakness. The heart size is within normal limits and stable when compared to 09/25/2011. In the interval since the prior exam minimal atelectasis has developed in the left costophrenic angle. The lungs are otherwise generally clear. There is no evidence for failure, pneumonia or for a significant pleural effusion. The mediastinum is not widened. The osseous structures are intact. IMPRESSION: Aside from the development of minimal atelectasis in the left lung base there has been no significant change since the prior study. There is no acute cardiopulmonary abnormality noted. Dictated by: Dictated on workstation # [id number]
[2021-03-03 12:57] LABS: INR 1.1 (0.8-1.4); PROTHROMBIN TIME PATIENT 14.1 SEC (12.2-14.7)
[2021-03-03 13:01] VITALS: BP_SYST 113; BP_SYST 114; BP_SYST 119; BP_DIAS 63; BP_DIAS 75; BP_DIAS 83
[2021-03-03 13:50] VITALS: BP 115/70
[2021-03-03] MEDS ORDERED: CATHETER FLUSH 10 ML SYR IV PRN (14:15)
[2021-03-03] MEDS: POTASSIUM CHLORIDE INJ 10 MEQ in NS IV 1000 ML 1,000 ML IV SCH ×2 (15:30→20:31)
[2021-03-03] MEDS ORDERED: OMEP20CA18 PO (15:52)
[2021-03-03] MEDS ORDERED: PROM25TA14 PO (15:52)
[2021-03-03 16:00] VITALS: BP 94/64
--- NOTE | 2021-03-03 17:25 | Consultation-Cardiology ---
HPI-Cardiology Cardiology Consultation: Date of Consultation 03/03/21 Date of Admission 03/03/21 Attending Physician Teri Mustafa MD Admitting Physician [facility] Consulting Physician KAYLI WOODY JR, MD HPI: Time Seen by a Provider: 17:25 Chief Complaint: Reason for consultation: Atrial fibrillationInocente John is a pleasant 70-year-old female no known history of cardiac disease. She states that approximately 1 year ago she underwent a cardiac evaluation by one of my partners which was unremarkable and then she was discharged from his care. She was in her usual state of reasonably good health until 1 week ago when she started developing nausea and vomiting. She also had anorexia with poor oral intake. From time to time she was also having some diarrhea. She denies any abdominal pain. She was having trouble keeping food down. She did not seek immediate medical attention at that time. However, this morning when she woke up she was extremely fatigued and lightheaded. Because of this, she came to the hospital for further evaluation. She was found to be dehydrated but also in atrial fibrillation with rapid ventricular rate. She denies any previous history of atrial fibrillation. She denies any chest discomfort, dyspnea, paroxysmal nocturnal dyspnea, orthopnea, or palpitations. From time to time she will get some mild ankle edema but this usually resolves by the following day. She is a lifelong non-smoker. She denies any fever, chills, or night sweats. Review of Systems-Cardiology Review of Systems Other comments Review of 10 organ systems is as per the history of present illness, otherwise negative. All Other Systems Reviewed Negative Unless Noted: Yes [id number] Hx Patient Social History Employed/Student: retired Smoking Status: Never a Smoker 2nd Hand Smoke Exposure: No Have you traveled recently?: No Alcohol Use?: No Immunizations Up To Date Tetanus Booster (TDap): Unknown Date of Pneumonia Vaccine: Jul 10, 2019 Date of Influenza Vaccine: Jul 10, 2019 Past Medical History PMH As described under Assessment. Family Medical History Family Medical History: She does not know of any family history of premature coronary artery disease. Family History: No Family History of: AIDS Abdominal aortic aneurysm [place]als's disease Alcoholism Alzheimer's disease Aphasia Arthritis Asthma Cancer of mouth Cardiovascular disease Cataracts Colon cancer Completed stroke Congenital disease Congenital heart disease Coronary thrombosis Cystic fibrosis Deafness or hearing loss Dementia Diabetes mellitus Drug abuse Dysphasia Fibrocystic disease of breast Gastroenteritis Glaucoma Headache disorder Hypercholesterolemia Hypertension Infertility Kidney disease Myocardial infarction Neoplasm (PT HAD MATERNAL UNCLE WHO FROM BREAST CANCER ) Not obtainable due to adoption Osteoporosis Parkinson's disease Prostate cancer Psychosocial problem Respiratory disorder Seizure disorder Severe allergy Thyroid disease Tuberculosis Visual disorder Allergies and Home Medications Allergies Coded Allergies: No Known Drug Allergies (Unverified , 05/07/18) Home Medications Amlodipine Besylate 10 Mg Tablet, 10 MG PO DAILY, (Reported) Last Action: Reviewed Buspirone HCl 5 Mg Tablet, 5 MG PO BID, (Reported) Last Action: Reviewed Nebivolol HCl 20 Mg Tablet, 40 MG PO DAILY, (Reported) TAKES 2 (20MG) TABS Last Action: Reviewed Omeprazole 20 Mg Capsule.dr, 20 MG PO DAILY PRN for HEARTBURN, (Reported) Last Action: Reviewed Promethazine HCl 25 Mg Tablet, 25 MG PO Q6H PRN for NAUSEA/VOMITING-1ST LINE, (Reported) Last Action: Reviewed Patient Home Medication List Home Medication List Reviewed: Yes Physical Exam-Cardiology Physical Exam Vital Signs/I&O 03/03/21 03/03/21 03/03/21 03/03/21 11:39 13:01 13:40 13:50 Temp 36.1 Pulse 120 82 88 107 97 108 Resp 16 16 20 B/P (MAP) 107/70 (82) 114/63 (80) 118/66 115/70 (85) 119/83 (95) 113/75 (88) Pulse Ox 96 98 100 O2 Delivery Room Air Room Air Room Air 03/03/21 03/03/21 14:32 16:00 Temp 35.8 Pulse 91 Resp 18 B/P (MAP) 94/64 (74) Pulse Ox 100 95 O2 Delivery Room Air Room Air Constitutional: appears stated age, AAO x 3, other (She is obese.) HEENT: other (Normocephalic and atraumatic. Extraocular movements are intact. No scleral icterus.) Neck: carotid pulses are 2 + bilaterally, with good upstrokes Respiratory: other (Lungs are clear to auscultation bilaterally without crackl es, rhonchi, or wheezing.) Cardiovascular: irregularly irregular (No murmurs, rubs, or gallops appreciated .) Gastrointestinal: soft (Nontender and nondistended.) Rectal: deferred Extremities: normal range of motion, non-tender (No peripheral edema.) Neurologic/Psychiatric: manager oracle II-XII nml as tested (Good motor tone in the upper and lower extremities bilaterally.) Skin: other (There is no pallor. No obvious rashes.) Data Review Labs Laboratory Tests 03/03/21 12:00: White Blood Count 15.8H, Red Blood Count 5.07, Hemoglobin 15.3, Hematocrit 44, Mean Corpuscular Volume 88, Mean Corpuscular Hemoglobin 30, Mean Corpuscular Hemoglobin Concent 35, Red Cell Distribution Width 12.1, Platelet Count 384, Mean Platelet Volume 11.4, Immature Granulocyte % (Auto) 1, Neutrophils (%) (Auto) 73, Lymphocytes (%) (Auto) 19, Monocytes (%) (Auto) 7, Eosinophils (%) (Auto) 1, Basophils (%) (Auto) 0, Neutrophils # (Auto) 11.5H, Lymphocytes # (Auto) 3.0, Monocytes # (Auto) 1.0, Eosinophils # (Auto) 0.2, Basophils # (Auto) 0.1, Immature Granulocyte # (Auto) 0.1, Neutrophils % (Manual) 63, Lymphocytes % (Manual) 20, Monocytes % (Manual) 10, Eosinophils % (Manual) 2, Reactive Lymphocytes 5, Blood Morphology Comment NORMAL, Prothrombin Time 14.1, INR Comment 1.1, Activated Partial Thromboplast Time 62H, Sodium Level 138, Potassium Level 3.0L, Chloride Level 96L, Carbon Dioxide Level 25, Anion Gap 17H , Blood Urea Nitrogen 30H, Creatinine 1.48H, Estimat Glomerular Filtration Rate 35, BUN/Creatinine Ratio 20, Glucose Level 101, Calcium Level 10.0, Corrected Calcium 9.9, Total Bilirubin 1.8H, Aspartate Amino Transf (AST/SGOT) 31, Alanine Aminotransferase (ALT/SGPT) 61H, Alkaline Phosphatase 88, Troponin I < 0.028, Total Protein 8.0, Albumin 4.1, Lipase 37 03/03/21 17:25: ECG Impression ECG Initial ECG Rhythm: A Fib/Flutter A/P-Cardiology Assessment/Admission Diagnosis Paroxysmal atrial fibrillation. I suspect this may have been brought on by her acute noncardiac illness, that is dehydration caused by 1 week of nausea, vomiting and diarrhea.Underwent an echocardiogram earlier today that shows a normal ejection fraction with no significant valvular pathology. Hopefully, with intravenous hydration, the atrial fibrillation will resolve spontaneously overnight. If not, we may need to consider a cardioversion. If she does undergo a cardioversion, then she will need 4-6 weeks of oral anticoagulation. I will keep her n.p.o. after midnight. Essential hypertension. Blood pressure is reasonably well controlled on her outpatient medications. These should be continued. Obesity. Lifestyle modification with exercise, diet and weight loss will need to be encouraged. Thank you for the courtesy of this consultation. We will be happy to follow along. KAYLI Alvares JR, MD Mar 03, 2021 17:25
[2021-03-03 17:32] LABS: CLARITY,URINE CLOUDY; COLOR,URINE ORANGE; GLUCOSE, URINE (UA) TRACE (NEGATIVE); KETONES,URINE NEGATIVE (NEGATIVE); LEUKOCYTE ESTERASE ,URINE 3+ (NEGATIVE); NITRITE,URINE NEGATIVE (NEGATIVE); PROTEIN,URINE 1+ (NEGATIVE)
[2021-03-03 17:47] LABS: BACTERIA,URINE FEW /HPF; BILIRUBIN,URINE 1+ (NEGATIVE); HYALINE CASTS, URINE >50 /LPF; WBC,URINE >100 /HPF
[2021-03-03] MEDS: PROMETHAZINE INJ 25 MG/ML (PHENERGAN) AMP IV PRN (18:47)
[2021-03-03 20:00] VITALS: BP 150/74
[2021-03-03] MEDS: ONDANSETRON 4 MG/2 ML (SDV) Z0FRAN IVP PRN (20:31)
[2021-03-04] MEDS: CALCIUM CARBONATE 500 MG (TUMS) TAB.CHEW PO PRN ×3 (00:06→10:18)
[2021-03-04 00:25] VITALS: BP 145/78
[2021-03-04] MEDS: POTASSIUM CHLORIDE INJ 10 MEQ in NS IV 1000 ML 1,000 ML IV SCH ×3 (03:39→17:30)
[2021-03-04 03:45] VITALS: BP 162/88
[2021-03-04] MEDS: PROMETHAZINE INJ 25 MG/ML (PHENERGAN) AMP IV PRN (05:43)
[2021-03-04 06:08] LABS: CHLORIDE 98 MMOL/L (98-107); POTASSIUM 3.1 MMOL/L (3.6-5.0); SODIUM 139 MMOL/L (135-145)
[2021-03-04 06:10] LABS: CALCIUM 9.2 MG/DL (8.5-10.1); GLUCOSE 100 MG/DL (70-105)
[2021-03-04 06:12] LABS: CARBON DIOXIDE 26 MMOL/L (21-32)
[2021-03-04 06:14] LABS: CREATININE SERUM 0.65 MG/DL (0.60-1.30); GFR ESTIMATED > 60
[2021-03-04 06:15] LABS: BUN/CREATININE RATIO 18
[2021-03-04 08:21] VITALS: BP 162/79
--- NOTE | 2021-03-04 11:31 | History & Physical ---
HPI History of Present Illness: 70 yo F that was admitted because of severe N/V and dehydration. Patient states that she has been vomiting since Monday and she feels extremely weak and tired. Denies eating or drinking anything new. No blood in vomit or stool. She has never had anything like this. Denies any sick contacts. In the ER she was found to be in Atrial fibrillation with RVR and this is a new occurance for her. She has not been able to tolerate any foods since monday. Denies any fever or chills. Source: patient Exam Limitations: no limitations Date seen by provider: Mar 04, 2021 Time Seen by Provider: 09:45 Attending Physician Vishal Mustafa MD [facility] Consult Date of Admission Mar 03, 2021 at 13:18 Home Medications Home Medications Reviewed patient Home Medication Reconciliation performed by pharmacy medication reconciliations nutrition technician and/or nursing. Patients Allergies have been reviewed. Allergies Coded Allergies: No Known Drug Allergies (Unverified , 05/07/18) [id number] Hx Patient Social History Employed/Student: retired Smoking Status: Never a Smoker 2nd Hand Smoke Exposure: No Recent Hopitalizations: No Alcohol Use?: No Have you traveled recently?: No Immunizations Up To Date Tetanus Booster (TDap): Unknown Date of Pneumonia Vaccine: Jul 10, 2019 Date of Influenza Vaccine: Jul 10, 2019 Past Medical History Past Medical History 1. Hypertension 2. Diverticulitis 3. Hiatal Hernia 4. Depression 5. Multiple admissions for diverticulitis 6. Recurrent admissions for nausea/vomiting and diverticulitis 7. Lobulated Uterus seen on CT consistent with Fibroids 7-14 8. Obesity Past Surgical History 1. Ovarian Cystectomy 2. Cholecystectomy 3. ERCP with bile duct stent- Dr. Wagner 4. EGD/Colonoscopies- most recent 2010 with Cristiano demonstrating multiple diverticulosis Family Medical History Significant Family History: No Pertinent Family Hx Family History: No Family History of: AIDS Abdominal aortic aneurysm Wagner's disease Alcoholism Alzheimer's disease Aphasia Arthritis Asthma Cancer of mouth Cardiovascular disease Cataracts Colon cancer Completed stroke Congenital disease Congenital heart disease Coronary thrombosis Cystic fibrosis Deafness or hearing loss Dementia Diabetes mellitus Drug abuse Dysphasia Fibrocystic disease of breast Gastroenteritis Glaucoma Headache disorder Hypercholesterolemia Hypertension Infertility Kidney disease Myocardial infarction Neoplasm (PT HAD MATERNAL UNCLE WHO FROM BREAST CANCER ) Not obtainable due to adoption Osteoporosis Parkinson's disease Prostate cancer Psychosocial problem Respiratory disorder Seizure disorder Severe allergy Thyroid disease Tuberculosis Visual disorder Review of Systems ([facility]) Constitutional: No chills, No fever; malaise, weakness EENTM: no symptoms reported; No mouth pain, No nose pain Respiratory: no symptoms reported; No cough, No short of breath Cardiovascular: no symptoms reported; No chest pain, No edema, No palpitations Gastrointestinal: abdominal pain; No constipation, No diarrhea; heartburn, loss of appetite, nausea, vomiting Genitourinary: no symptoms reported; No dysuria, No frequency, No hematuria : No Musculoskeletal: no symptoms reported; No back pain, No joint pain, No muscle pain Skin: no symptoms reported; No lesions, No rash Psychiatric/Neurological: No Symptoms Reported; Denies Numbness, Denies Weakness Reviewed Test Results Reviewed Test Results Lab Laboratory Tests Test 03/03/21 12:00 03/03/21 17:25 03/04/21 05:54 Range/Units White Blood Count 15.8 H 4.3-11.0 10^3/uL Red Blood Count 5.07 3.80-5.11 10^6/uL Hemoglobin 15.3 11.5-16.0 g/dL Hematocrit 44 35-52 % Mean Corpuscular Volume 88 80-99 fL Mean Corpuscular Hemoglobin 30 25-34 pg Mean Corpuscular Hemoglobin Concent 35 32-36 g/dL Red Cell Distribution Width 12.1 10.0-14.5 % Platelet Count 384 130-400 10^3/uL Mean Platelet Volume 11.4 9.0-12.2 fL Immature Granulocyte % (Auto) 1 % Neutrophils (%) (Auto) 73 42-75 % Lymphocytes (%) (Auto) 19 12-44 % Monocytes (%) (Auto) 7 0-12 % Eosinophils (%) (Auto) 1 0-10 % Basophils (%) (Auto) 0 0-10 % Neutrophils # (Auto) 11.5 H 1.8-7.8 10^3/uL Lymphocytes # (Auto) 3.0 1.0-4.0 10^3/uL Monocytes # (Auto) 1.0 0.0-1.0 10^3/uL Eosinophils # (Auto) 0.2 0.0-0.3 10^3/uL Basophils # (Auto) 0.1 0.0-0.1 10^3/uL Immature Granulocyte # (Auto) 0.1 0.0-0.1 10^3/uL Neutrophils % (Manual) 63 % Lymphocytes % (Manual) 20 % Monocytes % (Manual) 10 % Eosinophils % (Manual) 2 % Reactive Lymphocytes 5 % Blood Morphology Comment NORMAL Prothrombin Time 14.1 12.2-14.7 SEC INR Comment 1.1 0.8-1.4 Activated Partial Thromboplast Time 62 H 24-35 SEC Sodium Level 138 139 135-145 MMOL/L Potassium Level 3.0 L 3.1 L 3.6-5.0 MMOL/L Chloride Level 96 L 98 98-107 MMOL/L Carbon Dioxide Level 25 26 21-32 MMOL/L Anion Gap 17 H 15 H 5-14 MMOL/L Blood Urea Nitrogen 30 H 12 7-18 MG/DL Creatinine 1.48 H 0.65 0.60-1.30 MG/DL Estimat Glomerular Filtration Rate 35 > 60 BUN/Creatinine Ratio 20 18 Glucose Level 101 100 70-105 MG/DL Calcium Level 10.0 9.2 8.5-10.1 MG/DL Corrected Calcium 9.9 8.5-10.1 MG/DL Total Bilirubin 1.8 H 0.1-1.0 MG/DL Aspartate Amino Transf (AST/SGOT) 31 5-34 U/L Alanine Aminotransferase (ALT/SGPT) 61 H 0-55 U/L Alkaline Phosphatase 88 40-136 U/L Troponin I < 0.028 <0.028 NG/ML Total Protein 8.0 6.4-8.2 GM/DL Albumin 4.1 3.2-4.5 GM/DL Lipase 37 8-78 U/L Urine Color ORANGE Urine Clarity CLOUDY Urine pH 6.0 5-9 Urine Specific Bar[place] 1.015 L 1.016-1.022 Urine Protein 1+ H NEGATIVE Urine Glucose (UA) TRACE H NEGATIVE Urine Ketones NEGATIVE NEGATIVE Urine Nitrite NEGATIVE NEGATIVE Urine Bilirubin 1+ H NEGATIVE Urine Urobilinogen 4.0 < = 1.0 MG/DL Urine Leukocyte Esterase 3+ H NEGATIVE Urine RBC (Auto) TRACE-I NEGATIVE Urine RBC NONE /HPF Urine WBC >100 H /HPF Urine Squamous Epithelial Cells 5-10 /HPF Urine Crystals NONE /LPF Urine Bacteria FEW H /HPF Urine Casts PRESENT /LPF Urine Hyaline Casts >50 H /LPF Urine Mucus SMALL H /LPF Urine Culture Indicated YES Physical Exam-([facility]) Physical Exam Vital Signs VS - Last 72 Hours, by Label 03/03/21 03/03/21 03/03/21 03/03/21 11:39 13:01 13:40 13:50 Temp 36.1 Pulse 120 82 88 107 97 108 Resp 16 16 20 B/P (MAP) 107/70 (82) 114/63 (80) 118/66 115/70 (85) 119/83 (95) 113/75 (88) Pulse Ox 96 98 100 O2 Delivery Room Air Room Air Room Air 03/03/21 03/03/21 03/03/21 03/03/21 14:32 16:00 18:09 20:00 Temp 35.8 37.2 Pulse 91 100 98 Resp 18 18 B/P (MAP) 94/64 (74) 150/74 (99) Pulse Ox 100 95 95 O2 Delivery Room Air Room Air Room Air 03/03/21 03/04/21 03/04/21 03/04/21 20:00 00:25 01:00 03:45 Temp 36.4 36.1 Pulse 97 80 99 Resp 22 18 B/P (MAP) 145/78 (100) 162/88 (112) Pulse Ox 97 96 O2 Delivery Room Air Room Air Room Air 03/04/21 03/04/21 03/04/21 07:00 08:21 08:45 Temp 36.7 Pulse 60 86 Resp 18 B/P (MAP) 162/79 (106) Pulse Ox 96 O2 Delivery Room Air Room Air Capillary Refill : Less Than 3 Seconds General Appearance: WD/WN, no apparent distress HEENT: PERRL/EOMI Neck: non-tender, full range of motion, supple Respiratory: chest non-tender, lungs clear, normal breath sounds, no respiratory distress, no accessory muscle use Cardiovascular: normal peripheral pulses, regular rate, rhythm, no edema, no murmur Gastrointestinal: normal bowel sounds, soft; No guarding; tenderness; No mass, No hepatomegaly Back: no CVA tenderness, no vertebral tenderness Extremities: normal range of motion, non-tender, normal inspection, normal capillary refill Neurologic/Psychiatric: mill beam fitter II-XII nml as tested, no motor/sensory deficits, alert, normal mood/affect, oriented x 3 Skin: normal color, warm/dry Lymphatic: no adenopathy Assessment/Plan Assessment/Plan Admission Status: Observation (1) Dehydration Status: Acute Assessment & Plan: - 1 week of N/V, Will start IV protonix, CLD, will advance as tolerated (2) Acute kidney injury Status: Resolved Assessment & Plan: - Resolved with IVFs, decrease to 100 cc/hr (3) Paroxysmal atrial fibrillation Status: Acute Assessment & Plan: - Cardiology consulted, appreciate recommendations (4) Hypokalemia Status: Acute Assessment & Plan: - Replace IV, Repeat BMP in AM (5) Gastroenteritis Status: Acute Assessment & Plan: - Zofran/phenergen PRN, CLD (6) Essential hypertension Status: Chronic Assessment & Plan: - Restart home meds (7) DVT prophylaxis Assessment & Plan: - VISHAL Amos MD Mar 04, 2021 11:31
[2021-03-04 11:40] VITALS: BP 126/86
[2021-03-04] MEDS: POTASSIUM CL 10MEQ/50ML IVPB 50 ML IV SCH ×3 (12:36→15:56)
[2021-03-04] MEDS: PANTOPRAZOLE 40 MG (PROTONIX) VIAL IV SCH (12:36)
--- NOTE | 2021-03-04 13:02 | Cardiology Progress Note ---
Cardiology Progess Note Progress Date Seen by Provider: Mar 04, 2021 Time Seen by Provider: 12:59 I am seeing her for atrial fibrillation. She was placed on telemetry last evening. She is resting comfortably in bed. She is still having some nausea and vomiting but improved from yesterday. She denies any chest discomfort, dyspnea, palpitations, syncope, or lower extremity edema. Focused Exam Respiratory: Lungs Clear Cardiovascular: No Edema, No Gallop, No JVD, No Murmur, Normal Peripheral Pulses, Irregularly Irregular Skin: normal color, warm/dry A/P-Cardiology Assessment/Plan Plan See below. Diagnosis/Problems Diagnosis/Problems (1) Paroxysmal atrial fibrillation Status: Acute Assessment & Plan: She remains in atrial fibrillation. Heart rates are reasonably well controlled with beta-esvin. I was initially thinking of having her undergo a cardioversion. However, in retrospect, we do not have a good understanding of when she may have gone into atrial fibrillation since she was in atrial fibrillation when she arrived. As such, given that her heart rates are well controlled, I recommend that we place patient on oral anticoagulation for 1 month and then we could have her return to the hospital as an outpatient for elective direct-current cardioversion. She should continue on beta-esvin. I will initiate therapy with apixaban. I would then plan to see her in my office in 1 month and if she is still in atrial fibrillation at that time, I will arrange for an outpatient elective cardioversion. (2) Essential hypertension Status: Chronic Assessment & Plan: Blood pressures have been intermittently elevated. If this persists, we may need to adjust her antihypertensive medication. We will continue to monitor here in the hospital. (3) Obesity Assessment & Plan: She needs ongoing education about obesity and its impact on both her long-term risk for cardiac disease as well as noncardiac issues. KAYLI WOODY JR, MD Mar 04, 2021 13:02
[2021-03-04 15:38] VITALS: BP 106/71
[2021-03-04] MEDS ORDERED: metroNIDAZOLE 500MG/100ML IVPB 100 ML IV ONE (17:15)
[2021-03-04] MEDS ORDERED: ceFAZolin INJECTION 2,000 MG in WATER (STERILE) FOR INJECTION 10 ML IV ONE (17:15)
[2021-03-04 19:40] VITALS: BP 145/80
[2021-03-04] MEDS: APIXABAN 5 MG (ELIQUIS) TABLET PO SCH (20:20)
[2021-03-04] MEDS: ACETAMINOPHEN 500 MG TAB (TYLENOL) PO PRN (23:20)
[2021-03-05 00:09] VITALS: BP 160/82
[2021-03-05] MEDS: ONDANSETRON 4 MG/2 ML (SDV) Z0FRAN IVP PRN ×2 (03:11→21:01)
[2021-03-05] MEDS: POTASSIUM CHLORIDE INJ 10 MEQ in NS IV 1000 ML 1,000 ML IV SCH ×2 (03:11→16:16)
[2021-03-05 03:19] VITALS: BP 157/94
[2021-03-05 05:45] LABS: BASOPHILS % (AUTO) 0 % (0-10); EOSINOPHILS # (AUTO) 0.2 10^3/uL (0.0-0.3); EOSINOPHILS % (AUTO) 2 % (0-10); HEMATOCRIT 40 % (35-52); HEMOGLOBIN 13.6 g/dL (11.5-16.0); LYMPHOCYTES # (AUTO) 1.7 10^3/uL (1.0-4.0); LYMPHOCYTES % (AUTO) 13 % (12-44); MEAN CORPUSCULAR HEMOGLOBIN 30 pg (25-34); MEAN CORPUSCULAR HGB CONC 34 g/dL (32-36); MEAN CORPUSCULAR VOLUME 88 fL (80-99); MEAN PLATELET VOLUME 11.1 fL (9.0-12.2); MONOCYTES # (AUTO) 0.7 10^3/uL (0.0-1.0); MONOCYTES % (AUTO) 6 % (0-12); NEUTROPHILS # (AUTO) 9.9 10^3/uL (1.8-7.8); NEUTROPHILS % (AUTO) 79 % (42-75); PLATELET COUNT 320 10^3/uL (130-400); WHITE BLOOD COUNT 12.5 10^3/uL (4.3-11.0)
[2021-03-05 06:02] LABS: CHLORIDE 98 MMOL/L (98-107); POTASSIUM 3.4 MMOL/L (3.6-5.0); SODIUM 135 MMOL/L (135-145)
[2021-03-05 06:03] LABS: CALCIUM 9.1 MG/DL (8.5-10.1)
[2021-03-05 06:04] LABS: GLUCOSE 88 MG/DL (70-105)
[2021-03-05 06:05] LABS: CARBON DIOXIDE 23 MMOL/L (21-32)
[2021-03-05 06:07] LABS: CREATININE SERUM 0.65 MG/DL (0.60-1.30); GFR ESTIMATED > 60
[2021-03-05 06:08] LABS: BUN/CREATININE RATIO 12
--- NOTE | 2021-03-05 06:24 | Progress Note - Hospitalist ---
Subjective HPI/CC On Admission Date Seen by Provider: Mar 05, 2021 Time Seen by Provider: 11:00 Subjective/Events-last exam Patient feeling a little better Still very weak Still nauseated IV fluids have resolved the acute kidney injury Now she is scared to eat Clear liquid diet today Rocephin given for UTI Review of Systems General: Fatigue, Malaise Gastrointestinal: Nausea, Vomiting Objective Exam Vital Signs Vital Signs Date Time Temp Pulse Resp B/P (MAP) Pulse Ox O2 Delivery O2 Flow Rate FiO2 03/06/21 01:00 100 03/06/21 00:04 36.3 18 130/71 (90) 96 Room Air Capillary Refill : Less Than 3 Seconds General Appearance: No Apparent Distress, WD/WN, Chronically ill, Obese Respiratory: Lungs Clear, Normal Breath Sounds Cardiovascular: Regular Rate, Rhythm Neurologic/Psychiatric: Alert, Oriented x3, No Motor/Sensory Deficits, Depressed Affect Results/Procedures Lab Patient resulted labs reviewed. Assessment/Plan Assessment and Plan Assess & Plan/Chief Complaint Assessment: Weakness Nausea Acute kidney injury New onset atrial fibrillation with RVR Depression UTI Plan: Clear liquid diet Appreciate cardiology Rocephin for UTI PRIYANKA CASILLAS DO Mar 05, 2021 06:24
[2021-03-05] MEDS: cefTRIAXone 1,000 MG in WATER (STERILE) FOR INJECTION 10 ML IV SCH (07:28)
[2021-03-05 07:35] VITALS: BP 141/88
[2021-03-05] MEDS: PANTOPRAZOLE 40 MG (PROTONIX) VIAL IV SCH (09:27)
[2021-03-05] MEDS: amLODIPine 10 MG (NORVASC) TAB PO SCH (09:28)
[2021-03-05] MEDS: APIXABAN 5 MG (ELIQUIS) TABLET PO SCH ×2 (09:28→21:01)
[2021-03-05 11:42] VITALS: BP 131/80
[2021-03-05] MEDS ORDERED: lisINopril 20 MG (PRINIVIL) TABLET PO NR (12:15)
--- NOTE | 2021-03-05 12:17 | Cardiology Progress Note ---
Cardiology Progess Note Progress Date Seen by Provider: Mar 05, 2021 Time Seen by Provider: 12:12 We are seeing her for atrial fibrillation. She denies chest discomfort, dyspnea, palpitations, syncope, or lower extremity edema. She continues to have nausea and vomiting and has some slight abdominal pain from all the vomiting. Focused Exam Respiratory: Lungs Clear, Normal Breath Sounds Cardiovascular: No Edema, No Gallop, No JVD, No Murmur, Normal Peripheral Pulses, Irregularly Irregular Skin: normal color, warm/dry A/P-Cardiology Assessment/Plan Plan See below. Diagnosis/Problems Diagnosis/Problems (1) Persistent atrial fibrillation Assessment & Plan: She remains in atrial fibrillation. Heart rates are reasonably well controlled on no AV nav blocking agents. I thought she had been getting her beta-esvin but this was not ordered to start until today. She has been started on oral anticoagulation with apixaban. From a cardiac standpoint, she can be discharged to home. She should continue on her outpatient nebivolol as well as the apixaban. I will plan to see her in the office in 1 month and if she remains in atrial fibrillation, I will then schedule her for an outpatient elective cardioversion. Cardiology will sign off at this point in time. Please call if they have any other questions or concerns. (2) Essential hypertension Status: Chronic Assessment & Plan: Blood pressures have been intermittently elevated. The nurse just told me today that the patient had not been receiving her carvedilol or amlodipine. These were ordered to start today. We will continue to monitor the blood pressure with the reinstitution of the antihypertensive medication. (3) Obesity Assessment & Plan: She needs ongoing education about obesity and its impact on both her long-term risk for cardiac disease as well as noncardiac issues. There is data that losing just 25 pounds can help reduce the risk of recurrent atrial fibrillation. KAYLI WOODY JR, MD Mar 05, 2021 12:17
[2021-03-05 15:44] VITALS: BP 108/62
[2021-03-05 19:26] VITALS: BP 141/72
[2021-03-06] VITALS (7 sets, daily range): BP systolic 106–144; BP diastolic 57–82
[2021-03-06] MEDS: POTASSIUM CHLORIDE INJ 10 MEQ in NS IV 1000 ML 1,000 ML IV SCH ×3 (02:35→23:02)
[2021-03-06 06:02] LABS: BASOPHILS % (AUTO) 0 % (0-10); EOSINOPHILS # (AUTO) 0.2 10^3/uL (0.0-0.3); EOSINOPHILS % (AUTO) 2 % (0-10); HEMATOCRIT 36 % (35-52); HEMOGLOBIN 12.6 g/dL (11.5-16.0); LYMPHOCYTES # (AUTO) 1.7 10^3/uL (1.0-4.0); LYMPHOCYTES % (AUTO) 13 % (12-44); MEAN CORPUSCULAR HEMOGLOBIN 31 pg (25-34); MEAN CORPUSCULAR HGB CONC 35 g/dL (32-36); MEAN CORPUSCULAR VOLUME 87 fL (80-99); MEAN PLATELET VOLUME 11.3 fL (9.0-12.2); MONOCYTES # (AUTO) 0.9 10^3/uL (0.0-1.0); MONOCYTES % (AUTO) 7 % (0-12); NEUTROPHILS # (AUTO) 10.4 10^3/uL (1.8-7.8); NEUTROPHILS % (AUTO) 78 % (42-75); PLATELET COUNT 281 10^3/uL (130-400); WHITE BLOOD COUNT 13.3 10^3/uL (4.3-11.0)
[2021-03-06 06:10] LABS: ALBUMIN 3.5 GM/DL (3.2-4.5)
[2021-03-06 06:11] LABS: CHLORIDE 99 MMOL/L (98-107); POTASSIUM 3.3 MMOL/L (3.6-5.0); SODIUM 135 MMOL/L (135-145)
[2021-03-06 06:12] LABS: CALCIUM 8.7 MG/DL (8.5-10.1)
[2021-03-06 06:13] LABS: GLUCOSE 81 MG/DL (70-105); TOTAL PROTEIN 6.6 GM/DL (6.4-8.2)
[2021-03-06 06:14] LABS: CARBON DIOXIDE 23 MMOL/L (21-32)
[2021-03-06 06:15] LABS: BILIRUBIN,TOTAL 0.9 MG/DL (0.1-1.0)
[2021-03-06 06:16] LABS: ALKALINE PHOSPHATASE 77 U/L (40-136)
[2021-03-06 06:17] LABS: CREATININE SERUM 0.62 MG/DL (0.60-1.30); GFR ESTIMATED > 60
[2021-03-06 06:18] LABS: BUN/CREATININE RATIO 11
[2021-03-06 06:20] LABS: ALANINE AMINOTRANSFERASE 35 U/L (0-55)
--- NOTE | 2021-03-06 06:29 | Progress Note - Hospitalist ---
Subjective HPI/CC On Admission Date Seen by Provider: Mar 06, 2021 Time Seen by Provider: 11:00 Subjective/Events-last exam Patient scared to eat Nausea noted Checked meds and labs Patient did get up and around with PT Very difficult to motivate Review of Systems General: Fatigue, Malaise Objective Exam Vital Signs Vital Signs Date Time Temp Pulse Resp B/P (MAP) Pulse Ox O2 Delivery O2 Flow Rate FiO2 03/07/21 04:11 36.6 81 18 94/57 (69) 96 Room Air Capillary Refill : Less Than 3 Seconds General Appearance: No Apparent Distress, WD/WN, Chronically ill Respiratory: Lungs Clear Cardiovascular: Irregularly Irregular Neurologic/Psychiatric: Alert, Oriented x3 Results/Procedures Lab Laboratory Tests 03/06/21 05:45 Patient resulted labs reviewed. Assessment/Plan Assessment and Plan Assess & Plan/Chief Complaint Assessment: Weakness Nausea Acute kidney injury New onset atrial fibrillation with RVR Depression UTI Plan: Clear liquid diet Appreciate cardiology Rocephin for UTI 03/06/2021: Continue IV antibiotics Continue IV fluids PT PRIYANKA CASILLAS DO Mar 06, 2021 06:29
[2021-03-06] MEDS: cefTRIAXone 1,000 MG in WATER (STERILE) FOR INJECTION 10 ML IV SCH (06:47)
[2021-03-06] MEDS ORDERED: lisINopril 20 MG (PRINIVIL) TABLET PO SCH (09:00)
[2021-03-06] MEDS: PANTOPRAZOLE 40 MG (PROTONIX) VIAL IV SCH (09:53)
[2021-03-06] MEDS: APIXABAN 5 MG (ELIQUIS) TABLET PO SCH ×2 (09:53→20:07)
[2021-03-06] MEDS: amLODIPine 10 MG (NORVASC) TAB PO SCH (09:53)
--- NOTE | 2021-03-06 12:45 | Physical Therapy Evaluation ---
PT Evaluation-General Medical Diagnosis Admission Date Mar 03, 2021 at 13:18 Medical Diagnosis: n/v and dehydration, a-fib Onset Date: Mar 03, 2021 Therapy Diagnosis Therapy Diagnosis: decreased mobility Height/Weight Height (Feet): 5 Height (Inches): 8.00 Weight (Pounds): 282 Weight (Ounces): 0.0 Precautions Precautions/Isolations: Standard Precautions Weight Bear Status Right Lower Extremity: Right Full Weight Bearing Left Lower Extremity: Left Full Weight Bearing Referral Physician: Dr. Yusuf Reason for Referral: Evaluation/Treatment Medical History Pertinent Medical History: Diverticulitis Additional Medical History hiatal hernia, depression, obesity Current History Pt. presented with excessive n/v, dehydration and weakness. Social History Home: Single Level Current Living Status: Alone Prior Prior Level of Function SCALE: Activities may be completed with or without assistive devices. 2-Utchhyguhm-tucqbbu completes the activity by him/herself with no assistance from a helper. 5-Set-up or Clean-up Assistance-helper sets up or cleans up; patient completes activity. [place] assists only prior to or following the activity. 4-Supervision or Touching Assistance-helper provides verbal cues and/or touching/steadying and/or contact guard assistance as patient completes activity. Assistance may be provided throughout the activity or intermittently. 3-Partial/Moderate Assistance-helper does LESS THAN HALF the effort. [place] lifts, holds or supports trunk or limbs, but provides less than half the effort. 2-Substantial/Maximal Assistance-helper does MORE THAN HALF the effort. [place] lifts or holds trunk or limbs and provides more than half the effort. 8-Mebcefsdk-ekbmsm does ALL the effort. Patient does none of the effort to c omplete the activity. Or, the assistance of 2 or more helpers is required for the patient to complete the activity. If activity was not attempted, code reason: 7-Patient Refused. 9-Not Applicable-not attempted and the patient did not perform the activity before the current illness, exacerbation or injury. 10-Not Attempted due to Environmental Limitations-(lack of equipment, weather restraints, etc.). 88-Not Attempted due to Medical Conditions or Safety Concerns. Bed Mobility: 6 Transfers (B,C,W/C): 6 Gait: 6 Stairs: 6 PT Evaluation-Current Subjective Pt. states she isn't feeling good today but has been up to the bathroom. Pt/Family Goals home Objective Patient Orientation: Person, Place, Time, Situation Attachments: IV ROM/Strength ROM Upper Extremities WNL ROM Lower Extremities WNL Strength Upper Extremities WNL Strength Lower Extremities Grossly 4/5 (B) Integumentary/Posture Integumentary grossly intact Bowel Incontinence: No Bladder Incontinence: No Posture generally upright Neuromuscular (Tone, Coordination, Reflexes) grossly intact Sensory Vision: Functional Hearing: Functional Sensation Right Upper Extremit: Intact Sensation Left Upper Extremity: Intact Sensation Right Lower Extremit: Intact Sensation Left Lower Extremity: Intact Transfers Roll Left to Right (QC): 6 Lying to Sitting/Side of Bed(Q: 4 Sit to Stand (QC): 4 Toilet Transfer (QC): 6 Gait Does the Patient Walk?: Yes Mode of Locomotion: Walk Anticipated Mode of Locomotion: Walk Walk 10 feet (QC): 4 Distance: x 10 ft, x 15 ft Gait Assistive Device: None Comments/Gait Description holds onto IV pole Balance Sitting Static: Good Sitting Dynamic: Good Standing Static: Fair Standing Dynamic: Fair Assessment/Needs Pt. is a 70 y.o. female with decreased mobility and generalized weakness. Pt. did well with transfers and ambulation in room but fatigues very quickly; she self-limits gait due to not feeling well. Pt. would benefit from short-term skilled PT to restore mobility and strength for return home alone. Rehab Potential: Good PT Detention Goals Detention Goals PT Detention Goals Time Frame: Mar 13, 2021 Roll Left & Right (QC): 6 Sit to Lying (QC): 6 Lying-Sitting on Side/Bed(QC): 6 Sit to Stand (QC): 6 Does the Patient Walk: Yes Walk 10 feet (QC): 6 Walk 150 ft (QC): 6 PT Plan Problem List Problem List: Activity Tolerance, Functional Strength, Safety, Balance, Gait, Transfer, Bed Mobility, ROM Treatment/Plan Treatment Plan: Continue Plan of Care Treatment Plan: Bed Mobility, Education, Functional Activity Darrell, Functional Strength, Gait, Safety, Therapeutic Exercise, Transfers Treatment Duration: Mar 13, 2021 Frequency: 6 times per week Estimated Hrs Per Day: .25 hour per day Patient and/or Family Agrees t: Yes Time/GCodes Time In: 08 Time Out: 911 Total Billed Treatment Time: 13 Total Billed Treatment [id number] 13' CELIA RIOS PT Mar 06, 2021 12:45
--- NOTE | 2021-03-06 14:25 | Cardiology Progress Note ---
Cardiology Progess Note Progress Date Seen by Provider: Mar 06, 2021 Time Seen by Provider: 14:19 We are seeing her for atrial fibrillation. Her nausea and vomiting have improved but she still feels very weak. She denies chest pain, dyspnea, palpitations, syncope, or ankle edema. Focused Exam Respiratory: Lungs Clear, Normal Breath Sounds, No Respiratory Distress Cardiovascular: No Edema, No Gallop, No JVD, No Murmur, Normal Peripheral Pulses, Irregularly Irregular Skin: normal color, warm/dry A/P-Cardiology Assessment/Plan Plan See below. Diagnosis/Problems Diagnosis/Problems (1) Persistent atrial fibrillation Assessment & Plan: She remains in atrial fibrillation. Heart rates are reasonably well controlled Now on carvedilol. She has been started on apixaban. Her discharge is on hold due to her weakness and fatigue. When she is discharged, I will plan to see her in the office in approximately 1 month's time and if she remains in atrial fibrillation at that time, I will schedule her for an outpatient cardioversion. (2) Essential hypertension Status: Chronic Assessment & Plan: Blood pressures are improving now that she is on carvedilol. (3) Obesity Assessment & Plan: As noted before, if she can lose 20-25 pounds this will help reduce the risk of recurrent atrial fibrillation if we can get her back into sinus rhythm down the road. KAYLI WOODY JR, MD Mar 06, 2021 14:25
[2021-03-06 14:49] LABS: CHOLESTEROL 197 MG/DL (< 200); HDL CHOLESTEROL 30 MG/DL (40-60); TRIGLYCERIDES 108 MG/DL (<150); VLDL CHOLESTEROL 22 MG/DL (5-40)
[2021-03-06] MEDS: PROMETHAZINE INJ 25 MG/ML (PHENERGAN) AMP IV PRN (20:07)
[2021-03-06] MEDS: ACETAMINOPHEN 500 MG TAB (TYLENOL) PO PRN (20:07)
[2021-03-07 04:11] VITALS: BP 94/57
[2021-03-07 05:56] LABS: BASOPHILS % (AUTO) 0 % (0-10); EOSINOPHILS # (AUTO) 0.2 10^3/uL (0.0-0.3); EOSINOPHILS % (AUTO) 2 % (0-10); HEMATOCRIT 35 % (35-52); HEMOGLOBIN 12.2 g/dL (11.5-16.0); LYMPHOCYTES # (AUTO) 1.9 10^3/uL (1.0-4.0); LYMPHOCYTES % (AUTO) 17 % (12-44); MEAN CORPUSCULAR HEMOGLOBIN 30 pg (25-34); MEAN CORPUSCULAR HGB CONC 35 g/dL (32-36); MEAN CORPUSCULAR VOLUME 87 fL (80-99); MEAN PLATELET VOLUME 11.2 fL (9.0-12.2); MONOCYTES # (AUTO) 0.9 10^3/uL (0.0-1.0); MONOCYTES % (AUTO) 8 % (0-12); NEUTROPHILS % (AUTO) 72 % (42-75); PLATELET COUNT 276 10^3/uL (130-400); WHITE BLOOD COUNT 11.2 10^3/uL (4.3-11.0)
[2021-03-07 06:12] LABS: ALBUMIN 3.3 GM/DL (3.2-4.5); CHLORIDE 99 MMOL/L (98-107); POTASSIUM 3.1 MMOL/L (3.6-5.0); SODIUM 135 MMOL/L (135-145)
[2021-03-07 06:13] LABS: CALCIUM 8.6 MG/DL (8.5-10.1)
[2021-03-07 06:14] LABS: GLUCOSE 72 MG/DL (70-105); TOTAL PROTEIN 6.3 GM/DL (6.4-8.2)
[2021-03-07 06:16] LABS: BILIRUBIN,TOTAL 0.7 MG/DL (0.1-1.0); CARBON DIOXIDE 22 MMOL/L (21-32)
[2021-03-07 06:18] LABS: ALKALINE PHOSPHATASE 71 U/L (40-136); CREATININE SERUM 0.58 MG/DL (0.60-1.30); GFR ESTIMATED > 60
[2021-03-07] MEDS: cefTRIAXone 1,000 MG in WATER (STERILE) FOR INJECTION 10 ML IV SCH (06:18)
[2021-03-07 06:19] LABS: BUN/CREATININE RATIO 10
[2021-03-07 06:21] LABS: ALANINE AMINOTRANSFERASE 32 U/L (0-55)
[2021-03-07] MEDS: amLODIPine 10 MG (NORVASC) TAB PO SCH (08:13)
[2021-03-07] MEDS: APIXABAN 5 MG (ELIQUIS) TABLET PO SCH (08:13)
[2021-03-07] MEDS: PANTOPRAZOLE 40 MG (PROTONIX) VIAL IV SCH (08:13)
[2021-03-07 08:22] VITALS: BP 130/79
[2021-03-07] MEDS: POTASSIUM CHLORIDE INJ 10 MEQ in NS IV 1000 ML 1,000 ML IV SCH (08:31)
--- NOTE | 2021-03-07 09:36 | Progress Note - Hospitalist ---
Subjective HPI/CC On Admission Date Seen by Provider: Mar 07, 2021 Objective Exam Vital Signs Vital Signs Date Time Temp Pulse Resp B/P (MAP) Pulse Ox O2 Delivery O2 Flow Rate FiO2 03/07/21 12:38 73 03/07/21 12:20 36.6 18 123/78 (93) 96 Room Air Capillary Refill : Less Than 3 Seconds Results/Procedures Lab Laboratory Tests 03/07/21 05:38 Patient resulted labs reviewed. Assessment/Plan Assessment and Plan Assess & Plan/Chief Complaint Assessment: Weakness Nausea Acute kidney injury New onset atrial fibrillation with RVR Depression UTI Plan: Clear liquid diet Appreciate cardiology Rocephin for UTI 03/06/2021: Continue IV antibiotics Continue IV fluids PT PRIYANKA CASILLAS DO Mar 07, 2021 09:36
[2021-03-07] MEDS ORDERED: MAGNESIUM 1 GM/100 ML IVPB 100 ML IV ONE (09:45)
[2021-03-07] MEDS: POTASSIUM CL 10MEQ/50ML IVPB 50 ML IV SCH ×3 (10:01→11:59)
[2021-03-07] MEDS ORDERED: APIX5TAB PO (10:49)
--- NOTE | 2021-03-07 10:50 | Discharge Summary ---
Discharge Summary Hospital Course Was the Problem List Reviewed?: Yes Problems/Dx: (1) Persistent atrial fibrillation (2) Essential hypertension Status: Chronic (3) Obesity Hospital Course Date of Admission: Mar 03, 2021 at 13:18 Admission Diagnosis : Family Physician/Provider: Kristina Jose Aprn Date of Discharge: 03/07/21 Discharge Diagnosis: New onset atrial fibrillation, nausea and vomiting, acute kidney injury, apathy Hospital Course: Patient had a lengthy observation course she was given IV fluids which reversed the acute kidney injury but new onset A. fib with RVR diagnosed and managed by cardiology. Anticoagulation was initiated and discharged on that medication. Overall she had a lengthy hospital course considering she was unable to eat or drink anything without making her sick but she insisted on going home since labs remained stable vitals remained stable she was able to ambulate in the halls and if she has continued issues she will return back to the hospital. Labs and Pending Lab Test: Laboratory Tests 03/07/21 05:38: White Blood Count 11.2H, Red Blood Count 4.05, Hemoglobin 12.2, Hematocrit 35, Mean Corpuscular Volume 87, Mean Corpuscular Hemoglobin 30, Mean Corpuscular Hemoglobin Concent 35, Red Cell Distribution Width 11.6, Platelet Count 276, Mean Platelet Volume 11.2, Immature Granulocyte % (Auto) 1, Neutrophils (%) (Auto) 72, Lymphocytes (%) (Auto) 17, Monocytes (%) (Auto) 8, Eosinophils (%) (Auto) 2, Basophils (%) (Auto) 0, Neutrophils # (Auto) 8.0H, Lymphocytes # (Auto) 1.9, Monocytes # (Auto) 0.9, Eosinophils # (Auto) 0.2, Basophils # (Auto) 0.0, Immature Granulocyte # (Auto) 0.1, Sodium Level 135, Potassium Level 3.1L, Chloride Level 99, Carbon Dioxide Level 22, Anion Gap 14, Blood Urea Nitrogen 6L , Creatinine 0.58L, Estimat Glomerular Filtration Rate > 60, BUN/Creatinine Ratio 10, Glucose Level 72, Calcium Level 8.6, Corrected Calcium 9.2, Magnesium Level 1.4L, Total Bilirubin 0.7, Aspartate Amino Transf (AST/SGOT) 18, Alanine Aminotransferase (ALT/SGPT) 32, Alkaline Phosphatase 71, Total Protein 6.3L, Al bumin 3.3 Microbiology 6/9/21 Urine Culture - Final, Complete See Comments Home Meds Active Reported Omeprazole 20 Mg Capsule.dr 20 Mg PO DAILY PRN Promethazine Tablet (Promethazine HCl) 25 Mg Tablet 25 Mg PO Q6H PRN Buspirone HCl 5 Mg Tablet 5 Mg PO BID Amlodipine Besylate 10 Mg Tablet 10 Mg PO DAILY Bystolic (Nebivolol HCl) 20 Mg Tablet 40 Mg PO DAILY TAKES 2 (20MG) TABS Assessment/Pt Instructions [facility] in 1 week Cardiology follow-up as scheduled Discharge Planning: <30 minutes discharge planning Discharge Instructions Discharge Diet: No Restrictions Activity as Tolerated: Yes Discharge Physical Examination Vital Signs Vital Signs Date Time Temp Pulse Resp B/P (MAP) Pulse Ox O2 Delivery O2 Flow Rate FiO2 03/07/21 08:22 36.2 86 18 130/79 (96) 95 Room Air General Appearance: No Apparent Distress, WD/WN Respiratory: Lungs Clear Cardiovascular: Regular Rate, Rhythm Neurologic/Psychiatric: Alert, Oriented x3, Depressed Affect Allergies: Coded Allergies: No Known Drug Allergies (Unverified , 05/07/18) Discharge Summary Date of Admission Mar 03, 2021 at 13:18 Date of Discharge Discharge Date: Mar 07, 2021 Discharge Diagnosis Assessment: Weakness Nausea Acute kidney injury New onset atrial fibrillation with RVR Depression UTI Plan: Clear liquid diet Appreciate cardiology Rocephin for UTI 03/06/2021: Continue IV antibiotics Continue IV fluids PT (1) Persistent atrial fibrillation Assessment & Plan: She remains in atrial fibrillation. Heart rates are reasonably well controlled Now on carvedilol. She has been started on apixaban. Her discharge is on hold due to her weakness and fatigue. When she is discharged, I will plan to see her in the office in approximately 1 month's time and if she remains in atrial fibrillation at that time, I will schedule her for an outpatient cardioversion. (2) Essential hypertension Status: Chronic Assessment & Plan: Blood pressures are improving now that she is on carvedilol. (3) Obesity Assessment & Plan: As noted before, if she can lose 20-25 pounds this will help reduce the risk of recurrent atrial fibrillation if we can get her back into sinus rhythm down the road. PRIYANKA CASILLAS DO Mar 07, 2021 10:50
--- NOTE | 2021-03-07 11:01 | Cardiology Progress Note ---
Subjective Date Seen by Provider: Mar 07, 2021 Time Seen by Provider: 10:56 Subjective/Events-last exam We are seeing her due to atrial fibrillation. Her nausea and vomiting are improved. She wants to go home today. She denies chest pain, dyspnea, palpitations, syncope, or ankle edema. She ambulated in the hallway today without problems. Objective-Cardiology Exam Last Set of Vital Signs Vital Signs 03/07/21 08:22 Temp 36.2 Pulse 86 Resp 18 B/P (MAP) 130/79 (96) Pulse Ox 95 O2 Delivery Room Air Capillary Refill : Less Than 3 Seconds I&O Intake and Output 03/07/21 00:00 Intake Total 1905 ml Balance 1905 ml Intake Oral 890 ml IV Total 1015 ml # Voids 9 General: Alert, Oriented X3, Cooperative, No Acute Distress HEENT: Atraumatic, EOMI Neck: No JVD Lungs: Clear to Auscultation, Normal Air Movement Heart: Normal S1, Normal S2, No Murmurs, Other (Irregularly irregular rate and rhythm with controlled heart rate.) Abdomen: Normal Bowel Sounds, Soft, No Tenderness Extremities: No Clubbing, No Cyanosis, No Edema Skin: No Rashes, No Breakdown Neuro: Normal Gait, Normal Speech, Strength at 5/5 X4 Ext, Cranial Nerves 3-12 NL Psych/Mental Status: Mental Status NL, Mood NL Results Lab Laboratory Tests 03/07/21 05:38 A/P-Cardiology Admission Diagnosis (1) Persistent atrial fibrillation Assessment & Plan: She remains in atrial fibrillation. Heart rates are reasonably well controlled on carvedilol. She is on apixaban for stroke prophylaxis. The primary hospital physician plans to discharge her to home today. I will have my office contact her to schedule a follow-up appointment with me in 1 month. She should be discharged with beta-esvin and apixaban. She was taking nebivolol at home. The carvedilol can be changed back over to her outpatient dose of nebivolol. If she remains in atrial fibrillation in 1 month, I will plan on an outpatient elective cardioversion. (2) Essential hypertension Status: Chronic Assessment & Plan: Blood pressure is improved with carvedilol. 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 She was taking this medication prior to admission and has pills remaining at home. (3) Obesity Assessment & Plan: There is data showing that if patient's can lose 20-25 poun ds this will help reduce the risk of recurrent atrial fibrillation. Assessment/Plan See below. KAYLI WOODY JR, MD Mar 07, 2021 11:01
[2021-03-07 12:20] VITALS: BP 123/78
== END 2021-03-07 13:30 | disposition home or self-care (01) ==
LOC: EDUNIT# 11:39 → ER 11:41 → 4TH 13:18
PROVIDERS: ADMIT Family Medicine; ATTEND Family Medicine
DX: I48.20 Chronic atrial fibrillation, unspecified (principal); I48.0 Paroxysmal atrial fibrillation; I49.3 Ventricular premature depolarization; I05.0 Rheumatic mitral stenosis; N17.9 Acute kidney failure, unspecified; K52.9 Noninfective gastroenteritis and colitis, unspecified; G47.30 Sleep apnea, unspecified; I10 Essential (primary) hypertension; N83.209 Unspecified ovarian cyst, unspecified side; K21.9 Gastro-esophageal reflux disease without esophagitis; K57.90 Diverticulosis of intestine, part unspecified, without perforation or abscess without bleeding; K44.9 Diaphragmatic hernia without obstruction or gangrene; F41.9 Anxiety disorder, unspecified; E66.9 Obesity, unspecified; F32.9 Major depressive disorder, single episode, unspecified; I82.409 Acute embolism and thrombosis of unspecified deep veins of unspecified lower extremity; Z79.82 Long term (current) use of aspirin; Z79.899 Other long term (current) drug therapy; Z68.38 Body mass index [BMI] 38.0-38.9, adult; Z90.49 Acquired absence of other specified parts of digestive tract
CPT/HCPCS: 36415; 71045; 80048; 80053; 80061; 81000; 83690; 83735; 84484; 85007; 85025; 85027; 85610; 85730; 87088; 93005; 93306; G0378

== ENCOUNTER → 2021-03-31 | Outpatient (CLI) | payer MEDICARE, MEDICAID ==
[~2021-03-31] MED LIST changes: +APIX5TAB PO; +OMEP20CA18 PO
== END ==
LOC: LABNPT 07:19
PROVIDERS: ATTEND Nurse Practitioner
DX: G47.30 Sleep apnea, unspecified (principal); Z20.822 Contact with and (suspected) exposure to COVID-19
CPT/HCPCS: 87635

== ENCOUNTER 2021-04-02 20:17 | Outpatient (CLI) | payer MEDICARE, MEDICAID | END 2021-04-03 06:20 | disposition home or self-care (01) | LOC: SLEEP 20:17 | PROVIDERS: ATTEND Nurse Practitioner | DX: G47.33 Obstructive sleep apnea (adult) (pediatric) (principal) | CPT/HCPCS: 95810 ==

== ENCOUNTER → 2021-05-06 | Day surgery (SDC) | payer MEDICARE, MEDICAID ==
[~2021-05-06] VITALS: Ht 168 cm; Wt 113.0 kg
[~2021-05-06] MED LIST changes: +ACET325T38 PO; +CALC300T4 PO; +CATHETER FLUSH 10 ML SYR IV PRN; +FLUO20CA46 PO; +MULT-1136 PO; +NS IV 1000 ML 1,000 ML IV ONE; +NS IV 1000 ML 1,000 ML ONE; +proPOfol 200 MG/20 ML (DIPRIVAN) VIAL IV ONE
[2021-05-06 07:43] VITALS: BP 121/77
[2021-05-06 08:32] VITALS: BP 108/60
[2021-05-06 08:36] VITALS: BP 101/54
[2021-05-06 08:43] VITALS: BP 106/58
--- NOTE | 2021-05-06 08:47 | Cardioversion ---
Cardioversion PROCEDURE PHYSICIAN: Robert Polanco Jr, MD DATE OF PROCEDURE: 05/06/2021 DIRECT EXTERNAL ELECTRICAL CARDIOVERSION: Indications: Persistent atrial fibrillation. Preoperative diagnoses: Persistent atrial fibrillation. Postoperative diagnosis: Sinus bradycardia. History: The patient is a 70-year-old female with recent onset of atrial fibrillation. This was of unknown duration. She was placed on oral anticoagulation with apixaban and rate control with beta-esvin. After 1 month of oral anticoagulation, she is now referred for a cardioversion. Anesthesia: By Anesthesia services Procedure description: After informed consent and in the fasting state, monitored anesthesia was provided by the anesthesia department. Direct-current cardioversion was then performed with synchronized biphasic shocks in a stepwise fashion starting with 50 J and then 100 J. On the second shock, the patient converted from atrial fibrillation to sinus bradycardia. IMPRESSION: 1. Status post successful direct-current cardioversion for persistent atrial fibrillation with a final biphasic energy level of 100 J with successful conversion to sinus bradycardia. Certain portions of this document may have been dictated utilizing voice recognition technology. Inherent to this technology, typographical and grammatical errors may exist. As much as I am diligent to identify and correct these mistakes, some errors may remain in the document. ROBERT POLANCO JR, MD May 06, 2021 08:47
[2021-05-06 08:48] VITALS: BP 105/56
--- NOTE | 2021-05-06 08:51 | Anesthesia-General Post-Op ---
MAC Patient Condition Mental Status/LOC: Same as Preop Cardiovascular: Satisfactory Nausea/Vomiting: Absent Respiratory: Satisfactory Pain: Controlled Complications: Absent Post Op Complications Complications None Follow Up Care/Instructions Patient Instructions None needed. Anesthesiology Discharge Order Discharge Order Patient is doing well, no complaints, stable vital signs, no apparent adverse anesthesia problems. No complications reported per nursing. SAÚL CASTILLO CRNA May 06, 2021 08:51
== END ==
LOC: CATH 08:00
PROVIDERS: ATTEND Internal Medicine Cardiovascular Disease
DX: I48.0 Paroxysmal atrial fibrillation (principal); I48.19 Other persistent atrial fibrillation; I10 Essential (primary) hypertension; E78.5 Hyperlipidemia, unspecified; K21.9 Gastro-esophageal reflux disease without esophagitis; G47.33 Obstructive sleep apnea (adult) (pediatric); E78.2 Mixed hyperlipidemia; E66.01 Morbid (severe) obesity due to excess calories; Z79.899 Other long term (current) drug therapy; Z68.41 Body mass index [BMI] 40.0-44.9, adult
CPT/HCPCS: 36415; 80061; 84443; 92960; 93005

== ENCOUNTER → 2021-05-18 | Outpatient (CLI) | payer MEDICARE, MEDICAID ==
[~2021-05-18] MED LIST changes: -CATHETER FLUSH 10 ML SYR IV PRN; -NS IV 1000 ML 1,000 ML IV ONE; -NS IV 1000 ML 1,000 ML ONE; -proPOfol 200 MG/20 ML (DIPRIVAN) VIAL IV ONE
== END ==
LOC: LABNPT 06:33
PROVIDERS: ATTEND Otolaryngology Otolaryngology/Facial Plastic Surgery
DX: U07.1 COVID-19 (principal)
CPT/HCPCS: 87635

== ENCOUNTER → 2021-06-08 | Outpatient (CLI) | payer MEDICARE, MEDICAID | LOC: LABNPT 06:39 | PROVIDERS: ATTEND Otolaryngology Otolaryngology/Facial Plastic Surgery | DX: G47.33 Obstructive sleep apnea (adult) (pediatric) (principal); Z20.822 Contact with and (suspected) exposure to COVID-19 | CPT/HCPCS: 87635 ==

== ENCOUNTER 2021-06-10 19:20 | Outpatient (CLI) | payer MEDICARE, MEDICAID | END 2021-06-11 07:30 | disposition home or self-care (01) | LOC: SLEEP 19:20 | PROVIDERS: ATTEND Otolaryngology Otolaryngology/Facial Plastic Surgery | DX: G47.33 Obstructive sleep apnea (adult) (pediatric) (principal); G47.36 Sleep related hypoventilation in conditions classified elsewhere; Z20.822 Contact with and (suspected) exposure to COVID-19 | CPT/HCPCS: 95811 ==

== ENCOUNTER → 2021-08-03 | Outpatient (CLI) | payer MEDICARE, MEDICAID ==
--- NOTE | 2021-08-03 09:37 | Diagnostic Imaging Report ---
INDICATION: Postmenopausal. COMPARISON: None FINDINGS: The bone mineral density of the spine, hips and femoral necks was measured. The total T score for the spine is -0.2. The total T score for the left hip is -2.2 and for the right hip -0.3. All these values fall within the range of normal. However, the T score for the left femoral neck is -1.5 and for the right femoral neck -1.1. These T scores indicate osteopenia. AP Spine L1-L4: [BMD (g/cm2): 1.174] [T-Score: -0.2] [Z-Score: 0.3] [BMD Previous: na] [BMD % Change: na] LT Hip Neck: [BMD (g/cm2): 0.835] [T-Score: -1.5] [Z-Score: -0.4] LT Hip Total: [BMD (g/cm2):0.977] [T-Score:-0.2] [Z-Score: 0.5] [BMD Previous: na] [BMD % Change: na] RT Hip Neck: [BMD (g/cm2):0.883] [T-Score:-1.1] [Z-Score:-0.1] RT Hip Total: [BMD (g/cm2):0.968] [T-score:-0.3] [Z-Score:0.5] [BMD Previous:na] [BMD % Change:na] *Indicates significant change from prior examination based on 95% confidence level. World Health Organization criteria for BMD interpretation classify patients as Normal (T-score at or above -1.0), Osteopenic (T-score between -1.0 and -2.5) or Osteoporotic (T-score at or below -2.5). LIMITATIONS AND MODIFICATION: None. FRACTURE RISK (FRAX SCORE): The ten year probability of (%): Major Osteoporotic Fracture: [9.5] Hip Fracture: [1.5] IMPRESSION: 1. The bone mineral density of the spine and the hips is within normal limits but there is osteopenia of the femoral necks. 2. 3. See below National Osteoporosis Foundation guidelines on when to potentially initiate pharmacologic therapy. Based on the National Osteoporosis Foundation Guidelines, pharmacologic treatment should be initiated in any of the following, unless clinical conditions suggest otherwise: * Any patient with prior fragility fracture of the hip or vertebrae. A spine fracture indicates 5X risk for subsequent spine fracture and 2X risk for subsequent hip fracture. * Osteoporosis (T-score <-2.5). * Postmenopausal women and men age 50 and older with low bone mass/osteopenia (T-score between -1.0 and -2.5) by DXA and 10-year major osteoporotic fracture greater than 20% or a 10-year probability of hip fracture greater than 3%. These fracture risks are supplied above in the FRAX score, if applicable. * Clinician judgement and/or patient preferences may indicate treatment for people with 10-year fracture probabilities above or below these levels. Dictated by: Dictated on workstation # [id number]
== END ==
LOC: RAD 09:00
PROVIDERS: ATTEND Nurse Practitioner
DX: Z13.820 Encounter for screening for osteoporosis (principal); E55.9 Vitamin D deficiency, unspecified; M85.88 Other specified disorders of bone density and structure, other site; Z78.0 Asymptomatic menopausal state
CPT/HCPCS: 77080

== ENCOUNTER 2021-11-16 00:35 | Emergency (ER) | payer MEDICARE, MEDICAID ==
[~2021-11-16] VITALS: Ht 175 cm; Wt 90.7 kg
[~2021-11-16 00:35] MED LIST changes: -FLUO20CA46 PO; +FLUO20CA48 PO
--- NOTE | 2021-11-16 01:27 | ED Fall/Injury ---
General Stated Complaint: LEFT WRIST PAIN Source: patient Exam Limitations: no limitations History of Present Illness Date Seen by Provider: Nov 16, 2021 Time Seen by Provider: 00:33 Initial Comments 70-year-old female with past medical history of paroxysmal A. fib on Eliquis coming in after she was walking up some steps, missed a step, and fell on her left wrist. She is right-hand dominant. Immediate pain, swelling, bruising. Occurred roughly 1 hour prior to arrival. The pain is mild to moderate, throbbing, constant, better with rest. Has not taken any medicines as of yet. Denies hitting her head or passing out. Denies any neck or back pain. Has been ambulatory since the fall Allergies and Home Medications Allergies Coded Allergies: No Known Drug Allergies (Unverified , 05/07/18) Patient Home Medication List Home Medication List Reviewed: Yes Acetaminophen (Tylenol) 325 Mg Tablet, 325-650 MG PO Q8H PRN for PAIN-MILD (1- 4), (Reported) Entered as Reported by: SHARIF GONZÁLES on 05/06/21818 Amlodipine Besylate (Amlodipine Besylate) 10 Mg Tablet, 10 MG PO DAILY, (Reported) Entered as Reported by: NERI GIBSON on 06/30/20727 Apixaban (Eliquis) 5 Mg Tablet, 5 MG PO BID, (Reported) Entered as Reported by: SHARIF GONZÁLES on 05/06/21818 Calcium Carbonate (Tums) 300 Mg Tab.chew, 300 MG PO UD PRN for HEARTBURN, (Reported) Entered as Reported by: SHARIF GONZÁLES on 05/06/21818 Fluoxetine HCl (Fluoxetine HCl) 20 Mg Capsule, 20 MG PO DAILY, (Reported) Entered as Reported by: SHARIF GONZÁLES on 05/06/21818 Multivitamin (Multivitamin) 1 Each Tablet, 1 EACH PO DAILY, (Reported) Entered as Reported by: SHARIF GONZÁLES on 05/06/21818 Nebivolol HCl (Bystolic) 20 Mg Tablet, 40 MG PO DAILY, (Reported) Entered as Reported by: NERI GIBSON on 06/30/20727 Omeprazole (Omeprazole) 20 Mg Capsule.dr, 20 MG PO DAILY PRN for HEARTBURN, (Reported) Entered as Reported by: SHARIF GONZÁLES on 03/03/21 5752 Oxycodone HCl (Oxycodone HCl) 5 Mg Tablet, 5 MG PO Q6H PRN for PAIN-SEVERE (8- 10) Prescribed by: JADA MCCALL on 11/16/21 0312 Review of Systems Review of Systems Constitutional: No chills, No fever Eyes: Denies Blurred Vision Ears, Nose, Mouth, Throat: no symptoms reported Respiratory: no symptoms reported Cardiovascular: no symptoms reported Gastrointestinal: no symptoms reported Genitourinary: no symptoms reported Musculoskeletal: joint pain Skin: no symptoms reported Psychiatric/Neurological: No Symptoms Reported All Other Systems Reviewed Negative Unless Noted: Yes Past Nxiajnr-Wmenab-Jdhocc Hx Patient Social History Tobacco Use?: No Immunizations Up To Date Tetanus Booster (TDap): Unknown PED Vaccines UTD: No Seasonal Allergies Seasonal Allergies: No Past Medical History Surgeries: Yes (LAP OVARIAN CYSTECTOMY, ERCP, COLONOSCOPY) Gallbladder Respiratory: No Sleep Apnea Currently Using CPAP: No Cardiac: Yes Hypertension Neurological: No Reproductive Disorders: No Female Reproductive Disorders: Ovarian Cyst Sexually Transmitted Disease: No HIV/AIDS: No UTI-Chronic Gastrointestinal: Yes Gastroesophageal Reflux, Diverticulosis, Hiatal Hernia Musculoskeletal: No Endocrine: No HEENT: No Loss of Vision: Bilateral Hearing Impairment: Denies Cancer: No Psychosocial: Yes Anxiety Integumentary: Yes Psoriasis Blood Disorders: No Adverse Reaction/Blood Tranf: No (N/A) Family Medical History No Family History of: AIDS Abdominal aortic aneurysm Wagner's disease Alcoholism Alzheimer's disease Aphasia Arthritis Asthma Cancer of mouth Cardiovascular disease Cataracts Colon cancer Completed stroke Congenital disease Congenital heart disease Coronary thrombosis Cystic fibrosis Deafness or hearing loss Dementia Diabetes mellitus Drug abuse Dysphasia Fibrocystic disease of breast Gastroenteritis Glaucoma Headache disorder Hypercholesterolemia Hypertension Infertility Kidney disease Myocardial infarction Neoplasm (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 0.0oz. [id number]; 40.03 BMI Method:Stated General Appearance: WD/WN, no apparent distress HEENT: PERRL/EOMI, normal ENT inspection, pharynx normal Neck: non-tender, full range of motion, supple, normal inspection Cardiovascular: regular rate, rhythm, no edema, no murmur Respiratory: chest non-tender, lungs clear, normal breath sounds, no respiratory distress, no accessory muscle use Gastrointestinal: normal bowel sounds, non tender, soft; No distended, No guarding, No rebound Back: normal inspection, no CVA tenderness, no vertebral tenderness Extremities: no pedal edema, no calf tenderness, normal capillary refill, other (Left wrist with swelling, bruising, and pain maximally along the distal aspect of the radius and ulna, no scaphoid tenderness) 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, no motor/sensory deficits, alert, normal mood/affect, oriented x 3 Skin: normal color, warm/dry Lymphatic: no adenopathy [place] Coma Score Best Eye Response: (4) Open Spontaneously Best Verbal Response: (5) Oriented Best Motor Response: (6) Obeys Commands Procedures/Interventions Splinting and Joint Reduction : Pre-Proc Neuro Vasc Exam: normal Post-Proc Neuro Vasc Exam: normal Progress Right wrist dislocated at the radial carpal joints, axial traction applied with improvement in the alignment, patient tolerated the procedure well, was placed in a sugar tong splint afterwards with Ortho-Glass and Hoang bandage Reduction Attempts: 1 Pre-Procedure NV Exam: Yes post joint reduction film: joint partially reduced in better position, radius fractured distally prior Hoang wrap: Yes Hand-Made Type: orthoglass Splint Application: Short Arm Progress/Results/Core Measures Results/Orders My Orders Orders - JADA MCCALL MD Wrist, Left, 3 Views Or More (11/16/21 01:23) Oxycodone Immediate Rel Tablet (Oxyir Ta (11/16/21 01:45) Acetaminophen Tablet (Tylenol Tablet) (11/16/21 01:45) Wrist, Left, 2 Views (11/16/21 ) Medications Given in ED Current Medications Medications Dose Ordered Sig/Dane Route Start Time Stop Time Status Last Admin Dose Admin Acetaminophen 1,000 mg ONCE ONCE PO 11/16/21 01:45 11/16/21 01:46 DC 11/16/21 01:53 1,000 MG Oxycodone HCl 5 mg ONCE ONCE PO 11/16/21 01:45 11/16/21 01:46 DC 11/16/21 01:53 5 MG Vital Signs/I&O 11/16/21 11/16/21 01:20 03:20 Temp 36.5 36.2 Pulse 79 79 Resp 16 22 B/P (MAP) 106/65 (79) 113/71 Pulse Ox 95 95 O2 Delivery Room Air Progress Progress Note : Progress Note 70-year-old female with above history coming in after she tripped on the stairs and landed on her left wrist. ABCs were intact, vital stable, GCS 15 on presentation. Denies any neck or head trauma. Remembers all events. Secondary survey only significant for the left wrist swelling and pain. She was offered pain medication and says she does not want any at this time. X-ray ordered and interpreted by me showing Departure Impression Primary Impression: Radiocarpal joint dislocation, closed Qualified Codes: S63.025A - Dislocation of radiocarpal joint of left wrist, initial encounter Additional Impression: Radius fracture Qualified Codes: S52.502A - Unspecified fracture of the lower end of left radius, initial encounter for closed fracture Disposition: HOME, SELF-CARE Condition: Stable Departure-Patient Inst. Decision time for Depature: 03:20 Referrals: [facility] [place] ([place]) Primary Care Physician ANDRES AKHTAR APRN (Family) Primary Care Physician Patient Instructions: Radius Fracture (DC) Add. Discharge Instructions: Please call the hand surgeon of your preference as soon as possible in the morning to schedule an appointment as soon as possible as you likely need surgery. Do not get your splint wet. Take Tylenol 1000 mg every 6-8 hours as needed for pain. If you have pain on top of that you can take the oxycodone every [address] Cisse -[address] [place] [address] [place] [address] - [phone] Dr. Tillman [address], [place] [address] - [phone] Scripts Oxycodone HCl (Oxycodone HCl) 5 Mg Tablet 5 MG PO Q6H PRN for PAIN-SEVERE (8-10) for 3 Days, #12 TAB Prov: JADA MCCALL MD 11/16/21 JADA MCCALL MD Nov 16, 2021 01:26
[2021-11-16] MEDS ORDERED: ACETAMINOPHEN 500 MG TAB (TYLENOL) PO ONE (01:45)
[2021-11-16] MEDS ORDERED: OXYC5TAB PO (03:11)
[2021-11-16 03:20] VITALS: BP 113/71
--- NOTE | 2021-11-16 07:10 | Diagnostic Imaging Report ---
EXAM: WRIST, LEFT, 2 VIEWS INDICATION: Postreduction. COMPARISON: Left wrist radiographs 11/16/2021 at 1:35 AM. FINDINGS/ IMPRESSION: 2 radiographs of the left wrist acquired at 03:03 a.m. are acquired through splinting material. There has been partial interval reduction of the distal left radius fracture. The carpals are better aligned with the distal radius. Displaced left ulnar styloid fracture. Dictated by: Dictated on workstation # [id number]
--- NOTE | 2021-11-16 07:15 | Diagnostic Imaging Report ---
EXAM: WRIST, LEFT, 3 VIEWS OR MORE INDICATION: Left wrist pain. Fall. Trauma. COMPARISON: None. FINDINGS: Comminuted impacted fracture of the distal left radial metaphysis. Displaced fracture of the left ulnar styloid. Posterior dislocation of the 1st carpal row in relation to the distal radius. Carpal bones appear intact. No radiopaque foreign bodies. IMPRESSION: 1. Comminuted impacted fracture of the distal left radial metaphysis. 2. Posterior dislocation of the 1st carpal row in relation to the distal radius. 3. Displaced left ulnar styloid fracture. Dictated by: Dictated on workstation # [id number]
== END 2021-11-16 03:20 ==
LOC: EDUNIT# 00:35 → ER 00:37
DX: S52.502A Unspecified fracture of the lower end of left radius, initial encounter for closed fracture (principal); S63.025A Dislocation of radiocarpal joint of left wrist, initial encounter; G47.30 Sleep apnea, unspecified; I10 Essential (primary) hypertension; F41.9 Anxiety disorder, unspecified; K21.9 Gastro-esophageal reflux disease without esophagitis; Z79.01 Long term (current) use of anticoagulants; Z79.899 Other long term (current) drug therapy; W10.8XXA Fall (on) (from) other stairs and steps, initial encounter
CPT/HCPCS: 29105; 73100; 73110; 99284; A4565

== ENCOUNTER 2021-12-23 07:29 | Day surgery (SDC) | payer MEDICARE, MEDICAID ==
[~2021-12-23] VITALS: Ht 168.9 cm; Wt 112.0 kg
[2021-12-23] VITALS (7 sets, daily range): BP systolic 92–122; BP diastolic 53–79
[~2021-12-23 07:29] MED LIST changes: -ACET-2650 PO; -CALC-823 PO; -CHOL200059 PO; -FLEC100T PO; -ZINC50TA11 PO
[2021-12-23] MEDS ORDERED: NS IV 1000 ML 1,000 ML ONE (07:34)
[2021-12-23] MEDS ORDERED: NS IV 1000 ML 1,000 ML IV ONE (07:45)
[2021-12-23] MEDS ORDERED: CATHETER FLUSH 10 ML SYR IV PRN (07:45)
[2021-12-23] MEDS ORDERED: proPOfol 200 MG/20 ML (DIPRIVAN) VIAL IV ONE (08:06)
[2021-12-23] MEDS ORDERED: CHOL200059 PO ×2 (08:15)
[2021-12-23] MEDS ORDERED: CALC-823 PO ×2 (08:15)
[2021-12-23] MEDS ORDERED: ACET-2650 PO ×2 (08:15)
[2021-12-23] MEDS ORDERED: FLEC100T PO ×2 (08:15)
[2021-12-23] MEDS ORDERED: MULT-1136 PO ×2 (08:15)
[2021-12-23] MEDS ORDERED: ZINC50TA11 PO ×2 (08:15)
--- NOTE | 2021-12-23 08:39 | Cardiac Procedure Note ---
Cardiology Procedures Date of Procedure 12/23/21 DIRECT-CURRENT CARDIOVERSION INDICATION: Persistent atrial fibrillation. PROCEDURE: After informed consent and in the fasting state, deep sedation was provided by the anesthesia department. I subsequently performed direct-current cardioversion with 1 synchronized biphasic shock at 100 J with successful conversion of atrial fibrillation to sinus bradycardia. IMPRESSION: 1. Status post successful direct-current cardioversion with 1 synchronized biphasic shock with conversion of atrial fibrillation to sinus bradycardia. Certain portions of this document may have been dictated utilizing voice recognition technology. Inherent to this technology, typographical and grammatical errors may exist. As much as I am diligent to identify and correct these mistakes, some errors may remain in the document. KAYLI WOODY JR, MD Dec 23, 2021 08:39
--- NOTE | 2021-12-28 08:59 | Anesthesia-General Post-Op ---
MAC Significant Intra-Op Events Notes Post op completed on day of procedure 12/23 at 0900 Patient Condition Mental Status/LOC: Same as Preop Cardiovascular: Satisfactory Nausea/Vomiting: Absent Respiratory: Satisfactory Pain: Controlled Complications: Absent Post Op Complications Complications None Follow Up Care/Instructions Patient Instructions None needed. Anesthesiology Discharge Order Discharge Order Patient is doing well, no complaints, stable vital signs, no apparent adverse anesthesia problems. No complications reported per nursing. NOAM ESCALONA UNIT SECRETARY Dec 28, 2021 08:59
== END 2021-12-23 09:30 | disposition home or self-care (01) ==
LOC: CATH 07:29
PROVIDERS: ATTEND Internal Medicine Cardiovascular Disease
DX: I48.19 Other persistent atrial fibrillation (principal); E66.9 Obesity, unspecified; R60.0 Localized edema; I10 Essential (primary) hypertension; E78.2 Mixed hyperlipidemia; G47.33 Obstructive sleep apnea (adult) (pediatric); Z68.39 Body mass index [BMI] 39.0-39.9, adult; Z99.89 Dependence on other enabling machines and devices; Z71.89 Other specified counseling; Z79.01 Long term (current) use of anticoagulants; Z79.899 Other long term (current) drug therapy
CPT/HCPCS: 92960; 93005

== ENCOUNTER → 2021-12-23 | Outpatient (CLI) | payer MEDICARE, MEDICAID ==
[~2021-12-23] MED LIST changes: +ACET-2650 PO; +CALC-823 PO; +CHOL200059 PO; +FLEC100T PO; +OXYC5TAB PO; +ZINC50TA11 PO
--- NOTE | 2021-12-23 08:25 | Anesthesia-General Post-Op ---
MAC Patient Condition Mental Status/LOC: Same as Preop Cardiovascular: Satisfactory Nausea/Vomiting: Absent Respiratory: Satisfactory Pain: Controlled Complications: Absent Post Op Complications Complications None Follow Up Care/Instructions Patient Instructions None needed. Anesthesiology Discharge Order Discharge Order Patient is doing well, no complaints, stable vital signs, no apparent adverse anesthesia problems. No complications reported per nursing. NOAM ESCALONA CRNA Dec 23, 2021 08:25
--- NOTE | 2021-12-24 09:56 | Diagnostic Imaging Report ---
PROCEDURE: US Venous Lower Ext Abdiel. TECHNIQUE: Multiple real-time grayscale images were obtained over the lower extremities in various projections, bilaterally. Additional duplex Doppler and color Doppler images were also obtained. INDICATION: Bilateral lower extremity edema and pain. FINDINGS: Color Doppler imaging shows normal blood flow throughout the lower extremity venous system bilaterally. Calf compression showed normal augmentation of flow at the popliteal level with Doppler sampling. No evidence of popliteal cyst. IMPRESSION: No evidence of venous thrombosis within the lower extremities. Dictated by: Dictated on workstation # [id number]
== END ==
LOC: RAD 10:20
PROVIDERS: ATTEND Internal Medicine Cardiovascular Disease
DX: M79.662 Pain in left lower leg (principal); M79.661 Pain in right lower leg; M79.89 Other specified soft tissue disorders
CPT/HCPCS: 93970

== ENCOUNTER 2022-04-20 05:31 | Outpatient (RCR) | payer MEDICARE, MEDICAID ==
[2022-04-19 08:30] VITALS: BP 156/68
[2022-04-19 09:43] LABS: BASOPHILS % (AUTO) 0 % (0-10); EOSINOPHILS # (AUTO) 0.1 10^3/uL (0.0-0.3); EOSINOPHILS % (AUTO) 2 % (0-10); HEMATOCRIT 48 % (35-52); HEMOGLOBIN 16.1 g/dL (11.5-16.0); LYMPHOCYTES # (AUTO) 1.3 10^3/uL (1.0-4.0); LYMPHOCYTES % (AUTO) 22 % (12-44); MEAN CORPUSCULAR HEMOGLOBIN 34 pg (25-34); MEAN CORPUSCULAR HGB CONC 33 g/dL (32-36); MEAN CORPUSCULAR VOLUME 102 fL (80-99); MEAN PLATELET VOLUME 9.7 fL (9.0-12.2); MONOCYTES # (AUTO) 0.5 10^3/uL (0.0-1.0); MONOCYTES % (AUTO) 8 % (0-12); NEUTROPHILS # (AUTO) 3.8 10^3/uL (1.8-7.8); NEUTROPHILS % (AUTO) 67 % (42-75); PLATELET COUNT 264 10^3/uL (130-400); WHITE BLOOD COUNT 5.7 10^3/uL (4.3-11.0)
[2022-04-19 10:48] LABS: CALCIUM 9.6 MG/DL (8.5-10.1); CREATININE SERUM 0.88 MG/DL (0.60-1.30); POTASSIUM 4.1 MMOL/L (3.6-5.0)
[~2022-04-20] VITALS: Ht 172.2 cm; Wt 109.5 kg
[~2022-04-20 05:31] MED LIST changes: +ACET-2650 PO; +BIOT10005 PO; +CALC-774 PO; +CALC-823 PO; +CHOL200059 PO; +FLEC100T PO; +LOSA100T57 PO; +PCN; +ZINC50TA11 PO; +[UNRECOGNIZED DRUG - OTHER]
[2022-04-22] MEDS ORDERED: ACHD5005 PO (11:57)
== END 2022-04-21 16:37 | disposition home or self-care (01) ==
LOC: PREOP 05:31
PROVIDERS: ATTEND Otolaryngology Otolaryngology/Facial Plastic Surgery
DX: Z20.822 Contact with and (suspected) exposure to COVID-19 (principal)
CPT/HCPCS: 36415; 80048; 85025; 87081; 87636; 93005

== ENCOUNTER 2022-04-22 07:51 | Day surgery (SDC) | payer MEDICARE, MEDICAID ==
[~2022-04-22] VITALS: Ht 172 cm; Wt 109.5 kg
[2022-04-22] VITALS (10 sets, daily range): BP systolic 147–170; BP diastolic 72–82
[~2022-04-22 07:51] MED LIST changes: -[UNRECOGNIZED DRUG - OTHER]; +[UNRECOGNIZED DRUG - OTHER] PO
[2022-04-22] MEDS ORDERED: LACTATED RINGERS 1,000 ML IV PRN (08:45)
--- NOTE | 2022-04-22 09:08 | Progress Note-Pre Operative ---
Pre-Operative Progress Note Date of Available H&P: Apr 22, 2022 Date H&P Reviewed: Apr 22, 2022 Time H&P Reviewed: 08:45 History & Physical: H&P Reviewed, Patient Examed, No changes noted Changes from last HP none Pre-Operative Diagnosis: left tongue mass GARTH GAN MD Apr 22, 2022 09:08
[2022-04-22] MEDS ORDERED: LIDOCAINE/EPI 2% 1:200,00 (XYLOCAINE) 20 ML VIAL ONE (09:18)
[2022-04-22] MEDS ORDERED: LIDOCAINE PF 2% 5 ML (XYLOCAINE) VIAL ONE (09:28)
[2022-04-22] MEDS ORDERED: proPOfol 200 MG/20 ML (DIPRIVAN) VIAL IV ONE (09:28)
[2022-04-22] MEDS ORDERED: SEVOFLURANE (ULTANE) 15 ML INHAL SOLN ONE (09:28)
[2022-04-22] MEDS ORDERED: ONDANSETRON 4 MG/2 ML (SDV) Z0FRAN ONE (09:28)
[2022-04-22] MEDS ORDERED: MIDAZOLAM 2 MG/2 ML (VERSED) VIAL ONE (09:29)
[2022-04-22] MEDS ORDERED: fentaNYL INJ 100 MCG/2 ML AMP ONE (09:29)
--- NOTE | 2022-04-22 09:46 | Progress Note-Post Operative ---
Post-Operative Progess Note Surgeon (s)/Supervisor Ditching (s) Surgeon GARTH GAN MD Supervisor Ditching n/a Pre-Operative Diagnosis left tongue mass Post-Operative Diagnosis same Post-Op Procedure Note Date of Procedure: Apr 22, 2022 Name of Procedure Performed: Excisioin of Left Tongue Mass with Primary repair Description & Findings Description and Findings: n/a Anesthesia Type get Estimated Blood Loss minimal Packing none. Specimen(s) collected/removed left tongue mass for frozen section to pathology GARTH GAN MD Apr 22, 2022 09:46
[2022-04-22] MEDS ORDERED: ACETAMINOPHEN 325 MG TABLET PO PRN (10:00)
[2022-04-22] MEDS ORDERED: HYDROcodone/APAP 5 MG/325 MG (LORTAB) TAB PO PRN (10:00)
--- NOTE | 2022-04-22 10:53 | Anesthesia-General Post-Op ---
General Patient Condition Mental Status/LOC: Same as Preop Cardiovascular: Satisfactory Nausea/Vomiting: Absent Respiratory: Satisfactory Pain: Controlled Complications: Absent Post Op Complications Complications None Follow Up Care/Instructions Patient Instructions None needed. Anesthesia/Patient Condition Patient Condition Patient is doing well, no complaints, stable vital signs, no apparent adverse anesthesia problems. No complications reported per nursing. SAÚL CASTILLO CRNA Apr 22, 2022 10:52
[2022-04-22] MEDS ORDERED: ONDANSETRON 4 MG/2 ML (SDV) Z0FRAN IVP PRN (11:00)
[2022-04-22] MEDS ORDERED: fentaNYL INJ 100 MCG/2 ML AMP IVP ONE (11:00)
[2022-04-22] MEDS ORDERED: ACHD5005 PO (11:57)
[2022-04-22] MEDS ORDERED: LIDOCAINE 2% VISCOUS 15 ML UDC PO SCH (12:00)
== END 2022-04-22 12:30 ==
LOC: SDC 07:51
PROVIDERS: ATTEND Otolaryngology Otolaryngology/Facial Plastic Surgery
DX: K14.0 Glossitis (principal); E66.9 Obesity, unspecified; Z68.37 Body mass index [BMI] 37.0-37.9, adult; Z79.01 Long term (current) use of anticoagulants
CPT/HCPCS: 87081; 88305

== ENCOUNTER 2022-04-30 01:40 | Inpatient (IN) | payer MEDICARE, MEDICAID ==
[~2022-04-30] VITALS: Ht 172.7 cm; Wt 105.9 kg
[2022-04-30] VITALS (37 sets, daily range): BP systolic 73–118; BP diastolic 37–84
[~2022-04-30 01:40] MED LIST changes: +ACHD5005 PO
[2022-04-30] MEDS ORDERED: NS IV 1000 ML 1,000 ML IV SCH ×3 (02:00→16:00)
--- NOTE | 2022-04-30 02:04 | ED EENT ---
History of Present Illness General Chief Complaint: Oral/Throat Problems Stated Complaint: BLEEDING FROM TONGUE Source: patient, EMS History of Present Illness Date Seen by Provider: Apr 30, 2022 Time Seen by Provider: 01:45 Initial Comments PT ARRIVES VIA EMS FROM HOME PT HAD A BIOPSY OF HER TONGUE LAST Monday04/22/22 STATES THAT THE STITCHES CAME OUT EARLIER TODAY AND THE AREA HAS BEEN BLEEDING ALL AFTERNOON STATES SHE HAS BEEN SWALLOWING THE BLOOD AND IT HAS MADE HER NAUSEATED AND SHE HAS VOMITED UP THE BLOOD--STATES SHE HAS VOMITED UP LARGE AMOUNTS OF BLOOD 4-5 TIMES TODAY C/O FEELING WEAK AND A LITTLE DIZZY. NO ABDOMINAL PAIN NO FEVER NO SWELLING TO FACE / JAW NO COUGH OR DYSPNEA PT IS ON ELIQUIS--WAS TOLD TO HOLD IT FOR A FEW DAYS BEFORE AND AFTER, AND PT HAS RESTARTED IT AND TOOK IT YESTERDAY AND TODAY NO EXCESSIVE BRUISING OR BLEEDING FROM OTHER SITES HAS FOLLOW UP APPOINTMENT WITH DR. GAN 05/05/22 THE BIOPSY WAS BENIGN AND WAS DUE TO CHRONIC ULCER FROM POOR DENTITION CONSTANTLY RUBBING AGAINST THE SIDE OF HER TONGUE. STATES SHE HAS NOT BEEN ABLE TO EAT FOR THE LAST 2 WEEKS DUE TO THIS PROBLEM--SEVERE PAIN TO TONGUE. PCP: [facility] Allergies and Home Medications Allergies Coded Allergies: No Known Drug Allergies (Unverified , 04/22/22) Patient Home Medication List Home Medication List Reviewed: Yes Acetaminophen (Tylenol) 325 Mg Tablet, 325-650 MG PO Q8H PRN for PAIN-MILD (1- 4), (Reported) Entered as Reported by: SHARIF GONZÁLES on 05/06/21 0819 Acetaminophen (Tylenol Arthritis) 650 Mg Tablet.er, 1,300 MG PO UD, (Reported) Entered as Reported by: GEM CISNEROS on 12/23/21 0815 Amlodipine Besylate (Amlodipine Besylate) 10 Mg Tablet, 10 MG PO DAILY, (Reported) Entered as Reported by: NERI GIBSON on 06/30/20 0728 Biotin (Biotin) 10,000 Mcg Capsule, 10,000 MCG PO DAILY, (Reported) Entered as Reported by: ANGY LAO on 04/19/22 1154 Calcium Carbonate/Vitamin D3 (Calcium 600 + Vit D3 400 Tab) 600 Mg Calcium-10 Mcg (400 Unit) Tablet, 1 EACH PO DAILY, (Reported) Entered as Reported by: ANGY LAO on 04/19/22 1154 Flecainide Acetate (Flecainide Acetate) 100 Mg Tablet, 100 MG PO BID, (Reported) Entered as Reported by: GEM CISNEROS on 12/23/21 0815 Fluoxetine HCl (Fluoxetine HCl) 20 Mg Capsule, 20 MG PO DAILY, (Reported) Entered as Reported by: SHARIF GONZÁLES on 05/06/21 0819 Hydrocodone/Acetaminophen (Hydrocodone-Acetamin 5-325 mg) 5 Mg-325 Mg Tablet, 1 TAB PO Q4H PRN for PAIN-MODERATE (5-7) Prescribed by: ANTONELLA BATISTA on 04/22/22 1157 Losartan Potassium (Losartan Potassium) 100 Mg Tablet, 100 MG PO DAILY, (Reported) Entered as Reported by: ANGY LAO on 04/19/22 115 Multivitamin (Multivitamin) 1 Each Tablet, 1 EACH PO DAILY, (Reported) Entered as Reported by: GEM CISNEROS on 12/23/21 0815 Nebivolol HCl (Bystolic) 20 Mg Tablet, 40 MG PO DAILY, (Reported) Entered as Reported by: NERI GIBSON on 06/30/20 0728 Omeprazole (Omeprazole) 20 Mg Capsule.dr, 20 MG PO DAILY PRN for HEARTBURN, (Reported) Entered as Reported by: SHARIF GONZÁLES on 03/03/21 1552 [Pcn 500MG Tid 10DAYS] , (Reported) Entered as Reported by: ANGY LAO on 04/19/22 115 [Thrive Vitamin] Unknown Strength , Unknown Dose, (Reported) Entered as Reported by: ANGY LAO on 04/19/22 115 Review of Systems Review of Systems Constitutional: no symptoms reported; No dizziness, No fever Mouth: see HPI Gastrointestinal: see HPI Hematologic/Lymphatic: See HPI Past Pskjvht-Qfhgfn-Stuztu Hx Immunizations Up To Date Tetanus Booster (TDap): Unknown PED Vaccines UTD: No First/Initial COVID19 Vaccinat: 12/13 Second COVID19 Vaccination Sree: 01/13 Seasonal Allergies Seasonal Allergies: No Past Medical History Surgeries: Yes (LAP OVARIAN CYSTECTOMY;ERCP;C OLONOSCOPY;OOPHORECTOMY;CATARACT;TONGUE BX) Eye Surgery, Gallbladder, Oophorectomy Respiratory: Yes Sleep Apnea Currently Using CPAP: No Currently Using BIPAP: No Cardiac: Yes ([facility]- CARDIOVERSION SEPTEMBER AND DECEMBER 2021 (DR. 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: Menopausal Sexually Transmitted Disease: No HIV/AIDS: No Genitourinary: Yes UTI-Chronic Gastrointestinal: Yes Gastroesophageal Reflux, Diverticulosis, Hiatal Hernia Musculoskeletal: Yes Fractures Endocrine: No HEENT: Yes (POOR DENTITION; CHRONIC TONGUE ULCER) Cataract Loss of Vision: Bilateral Hearing Impairment: Denies Cancer: No Psychosocial: Yes Anxiety, Depression Integumentary: Yes Psoriasis Blood Disorders: No Adverse Reaction/Blood Tranf: No (N/A) Family Medical History No Family History of: AIDS Abdominal aortic aneurysm [place]'s disease Alcoholism Alzheimer's disease Aphasia Arthritis Asthma Cancer of mouth Cardiovascular disease Cataracts Colon cancer Completed stroke Congenital disease Congenital heart disease Coronary thrombosis Cystic fibrosis Deafness or hearing loss Dementia Diabetes mellitus Drug abuse Dysphasia Fibrocystic disease of breast Gastroenteritis Glaucoma Headache disorder Hypercholesterolemia Hypertension Infertility Kidney disease Myocardial infarction Neoplasm (PT HAD 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 0.0oz. [id number]; 37.01 BMI Method:Stated General Appearance: WD/WN, no apparent distress Eyes: bilateral eye other (CONJUNCTIVAL NORMAL COLOR) Mouth/Throat: mandibular swelling, other (BIOPSY SITE TO LEFT SIDE OF TONGUE--ANN ESCHAR NOTED AT SITE. WITH NO BLEEDING AT THIS TIME, OR CLOT OVER THE AREA. NO SIGNS OF INFECTION NOTED. DRIED BLOOD ALL AROUND MOUTH AND CHIN) Cardiovascular: regular rate, rhythm Respiratory: normal breath sounds, no respiratory distress, no accessory muscle use Gastrointestinal: non tender, soft Neurologic/Psychiatric: no motor/sensory deficits, alert, normal mood/affect, oriented x 3 Skin: normal color, warm/dry Progress/Results/Core Measures Results/Orders Lab Results Laboratory Tests Test 04/30/22 02:05 Range/Units White Blood Count 13.0 H 4.3-11.0 10^3/uL Red Blood Count 4.20 3.80-5.11 10^6/uL Hemoglobin 14.2 11.5-16.0 g/dL Hematocrit 42 35-52 % Mean Corpuscular Volume 100 H 80-99 fL Mean Corpuscular Hemoglobin 34 25-34 pg Mean Corpuscular Hemoglobin Concent 34 32-36 g/dL Red Cell Distribution Width 13.0 10.0-14.5 % Platelet Count 304 130-400 10^3/uL Mean Platelet Volume 9.9 9.0-12.2 fL Immature Granulocyte % (Auto) 1 % Neutrophils (%) (Auto) 88 H 42-75 % Lymphocytes (%) (Auto) 8 L 12-44 % Monocytes (%) (Auto) 3 0-12 % Eosinophils (%) (Auto) 0 0-10 % Basophils (%) (Auto) 0 0-10 % Neutrophils # (Auto) 11.5 H 1.8-7.8 10^3/uL Lymphocytes # (Auto) 1.1 1.0-4.0 10^3/uL Monocytes # (Auto) 0.4 0.0-1.0 10^3/uL Eosinophils # (Auto) 0.0 0.0-0.3 10^3/uL Basophils # (Auto) 0.0 0.0-0.1 10^3/uL Immature Granulocyte # (Auto) 0.1 0.0-0.1 10^3/uL Neutrophils % (Manual) 92 % Lymphocytes % (Manual) 7 % Eosinophils % (Manual) 1 % Blood Morphology Comment NORMAL Prothrombin Time 15.4 H 12.2-14.7 SEC INR Comment 1.2 0.8-1.4 Activated Partial Thromboplast Time 42 H 24-35 SEC Sodium Level 140 135-145 MMOL/L Potassium Level 3.5 L 3.6-5.0 MMOL/L Chloride Level 99 98-107 MMOL/L Carbon Dioxide Level 26 21-32 MMOL/L Anion Gap 15 H 5-14 MMOL/L Blood Urea Nitrogen 25 H 7-18 MG/DL Creatinine 0.88 0.60-1.30 MG/DL Estimat Glomerular Filtration Rate 69 BUN/Creatinine Ratio 28 Glucose Level 235 H 70-105 MG/DL Calcium Level 9.0 8.5-10.1 MG/DL My Orders Orders - HOA DILLON DO Ed Iv/Invasive Line Start (04/30/22 01:48) Monitor-Rhythm Ecg Trace Only (04/30/22 01:48) Basic Metabolic Panel (04/30/22 01:48) Cbc With Automated Diff (04/30/22 01:48) Protime With Inr (04/30/22 01:48) Partial Thromboplastin Time (04/30/22 01:48) Ed Iv/Invasive Line Start (04/30/22 01:48) Ns Iv 1000 Ml (Sodium Chloride 0.9%) (04/30/22 02:00) Type And Screen (04/30/22 01:50) Ondansetron Injection (Zofran Injectio (04/30/22 02:15) Pantoprazole Injection (Protonix Injecti (04/30/22 02:30) Manual Differential (04/30/22 02:05) Pantoprazole Injection (Protonix Injecti (04/30/22 02:19) Medications Given in ED Current Medications Medications Dose Ordered Sig/Dane Route Start Time Stop Time Status Last Admin Dose Admin Ondansetron HCl 8 mg ONCE ONCE IVP 04/30/22 02:15 04/30/22 02:16 DC 04/30/22 02:17 8 MG Pantoprazole 80 mg ONCE ONCE IV 04/30/22 02:30 04/30/22 02:31 DC 04/30/22 02:23 80 MG Vital Signs/I&O 04/30/22 04/30/22 04/30/22 04/30/22 01:45 01:45 03:53 04:30 Temp 35.4 35.4 Pulse 74 61 Resp 14 14 B/P (MAP) 112/68 (83) 109/40 Pulse Ox 95 97 O2 Delivery Room Air Room Air Room Air Room Air 04/30/22 04:36 Temp 36.2 Pulse 66 Resp 18 B/P (MAP) 95/50 (65) Pulse Ox 99 O2 Delivery Room Air Progress Progress Note : Progress Note GIVEN IV FLUIDS 0205--PT IS NOW VOMITING UP COPIOUS AMOUNTS OF OLMAN BLOOD, WITH CLOTS, AND THERE IS SOME CLOTTED BLOOD AT BIOPSY SITE NOW. STATES SHE HAS BEEN VOMITING LIKE THIS SINCE THIS AFTERNOON. PT LATER STATES SHE HAD A BLACK/TARRY STOOL EARLIER TODAY ALSO. GIVEN ZOFRAN AND PROTONIX, NO FURTHER VOMITING OR BLEEDING FROM TONGUE BIOPSY SITE. BP > 100 SYSTOLIC AT TIME OF ADMIT. Departure Communication (Admissions) 0208--SPOKE WITH DR. GAN, HE WILL BE IN TO SEE PT. 030--DR. AGN HERE TO SEE PT. WILL ADMIT PT FOR OBSERVATION AND CONSULT SURGERY IN THE MORNING. Impression Primary Impression: Post-op bleeding Additional Impressions: S/P TONGUE BIOPSY ELIQUIS THERAPY Hematemesis History of atrial fibrillation Hyperglycemia Disposition: ADMITTED INPATIENT Condition: Stable Admissions Decision to Admit Reason: Admit from ER (General) Decision to Admit/Date: Apr 30, 2022 Time/Decision to Admit Time: 03:10 Departure-Patient Inst. Referrals: [facility] (PCP) Primary Care Physician ANDRES AKHTAR APRN (Family) Primary Care Physician HOA DILLON DO Apr 30, 2022 02:04
[2022-04-30] MEDS ORDERED: ONDANSETRON 4 MG/2 ML (SDV) Z0FRAN IVP ONE (02:15)
[2022-04-30 02:19] LABS: BASOPHILS % (AUTO) 0 % (0-10); EOSINOPHILS % (AUTO) 0 % (0-10); HEMATOCRIT 42 % (35-52); HEMOGLOBIN 14.2 g/dL (11.5-16.0); LYMPHOCYTES # (AUTO) 1.1 10^3/uL (1.0-4.0); LYMPHOCYTES % (AUTO) 8 % (12-44); MEAN CORPUSCULAR HEMOGLOBIN 34 pg (25-34); MEAN CORPUSCULAR HGB CONC 34 g/dL (32-36); MEAN CORPUSCULAR VOLUME 100 fL (80-99); MEAN PLATELET VOLUME 9.9 fL (9.0-12.2); MONOCYTES # (AUTO) 0.4 10^3/uL (0.0-1.0); MONOCYTES % (AUTO) 3 % (0-12); NEUTROPHILS # (AUTO) 11.5 10^3/uL (1.8-7.8); NEUTROPHILS % (AUTO) 88 % (42-75); PLATELET COUNT 304 10^3/uL (130-400)
[2022-04-30] MEDS ORDERED: PANTOPRAZOLE 40 MG (PROTONIX) VIAL ONE (02:19)
[2022-04-30 02:26] LABS: INR 1.2 (0.8-1.4); POTASSIUM 3.5 MMOL/L (3.6-5.0); PROTHROMBIN TIME PATIENT 15.4 SEC (12.2-14.7)
[2022-04-30] MEDS ORDERED: PANTOPRAZOLE 40 MG (PROTONIX) VIAL IV ONE (02:30)
[2022-04-30 02:31] LABS: CREATININE SERUM 0.88 MG/DL (0.60-1.30)
[2022-04-30 03:08] LABS: EOSINOPHILS % (MANUAL) 1 %; LYMPHOCYTES % (MANUAL) 7 %; NEUTROPHILS % (MANUAL) 92 %; RBC MORPH NORMAL
[2022-04-30] MEDS ORDERED: ONDANSETRON 4 MG/2 ML (SDV) Z0FRAN IV PRN ×2 (05:15→10:45)
[2022-04-30] MEDS: NS IV 1000 ML 1,000 ML IV SCH ×5 (05:26→22:00)
[2022-04-30] MEDS ORDERED: ACETAMINOPHEN 325 MG TABLET PO PRN ×2 (06:30→10:45)
--- NOTE | 2022-04-30 06:38 | CONSULTATION REPORT ---
DATE OF SERVICE: ENT ER NOTE/HISTORY AND PHYSICAL ER ROOM: 6. REFERRING PHYSICIAN: Dr. Love. REASON FOR CONSULTATION: Bleeding from mouth. HISTORY OF PRESENT ILLNESS: The patient presented with a 9-hour history of bleeding from her tongue. She has a history of a benign traumatic ulcer, which was large. It was removed one week ago. She bit the stitches out mid afternoon and it started to bleed. She has been putting pressure on it. She reports that she was swallowing blood. She then got weak and threw up. Her oral intake has been decreased over the past week because of her surgery. She has been using 2% viscous Xylocaine, which has helped. She has no prior history of any GI bleeding known. She did have a black stool prior to calling the EMS. There was no bright red blood present in the stool. PHYSICAL EXAMINATION: GENERAL: She is in no acute distress. She is alert, oriented x3. Communication, speech and voice were normal. VITAL SIGNS: Her blood pressure was 102/63, heart rate was not tachycardic; however, she is on a beta esvin. ORAL CAVITY: Showed mild swelling around the operative site posteriorly. There was no acute bleeding seen. Most of the stitches are gone. She has a good bit of tissue that is healing. NECK: Negative to palpation. IMPRESSION: 1. Bleeding tongue -- postoperatively. 2. Eliquis anticoagulation. 3. Possible gastrointestinal bleed. RECOMMENDATIONS: The patient lives alone at home. She will be admitted for observation to see if she has any further bleeding. In addition, we will ask Dr. Spain, the surgeon laborer construction or leak gang to see her the black stools are concerning for GI bleed. Her bleeding only started 9 hours ago and have black stools, this shows a fairly rapid transit time including indicated GI bleed as well. Her hemoglobin was in the normal range. We will hold the Eliquis. She does have an appointment with dentist to get the offending teeth, which caused all this in the first place, taking care of. She may have a clear liquid diet and take the rest of her medications. Job ID: [id number] DocumentID: [id number] Dictated Date: 04/30/2022 03:34:18 Portfolio Management Marketing Date: 04/30/2022 04:28:19 Dictated By: GARTH GAN MD
[2022-04-30 07:09] LABS: BASOPHILS % (AUTO) 0 % (0-10); EOSINOPHILS % (AUTO) 0 % (0-10); HEMATOCRIT 34 % (35-52); HEMOGLOBIN 11.6 g/dL (11.5-16.0); LYMPHOCYTES # (AUTO) 1.4 10^3/uL (1.0-4.0); LYMPHOCYTES % (AUTO) 11 % (12-44); MEAN CORPUSCULAR HEMOGLOBIN 34 pg (25-34); MEAN CORPUSCULAR HGB CONC 34 g/dL (32-36); MEAN CORPUSCULAR VOLUME 102 fL (80-99); MEAN PLATELET VOLUME 10.2 fL (9.0-12.2); MONOCYTES # (AUTO) 0.5 10^3/uL (0.0-1.0); MONOCYTES % (AUTO) 4 % (0-12); NEUTROPHILS # (AUTO) 10.7 10^3/uL (1.8-7.8); NEUTROPHILS % (AUTO) 84 % (42-75); PLATELET COUNT 295 10^3/uL (130-400); WHITE BLOOD COUNT 12.7 10^3/uL (4.3-11.0)
[2022-04-30 07:29] LABS: CALCIUM 8.1 MG/DL (8.5-10.1); CREATININE SERUM 0.73 MG/DL (0.60-1.30); POTASSIUM 3.7 MMOL/L (3.6-5.0)
[2022-04-30] MEDS: LIDOCAINE 2% VISCOUS 15 ML UDC PO PRN ×2 (08:04→14:08)
[2022-04-30] MEDS ORDERED: PANTOPRAZOLE 40 MG (PROTONIX) VIAL IV SCH (09:00)
[2022-04-30 09:08] LABS: BASOPHILS % (AUTO) 0 % (0-10); EOSINOPHILS % (AUTO) 0 % (0-10); HEMATOCRIT 33 % (35-52); HEMOGLOBIN 10.8 g/dL (11.5-16.0); LYMPHOCYTES # (AUTO) 2.9 10^3/uL (1.0-4.0); LYMPHOCYTES % (AUTO) 20 % (12-44); MEAN CORPUSCULAR HEMOGLOBIN 34 pg (25-34); MEAN CORPUSCULAR HGB CONC 33 g/dL (32-36); MEAN CORPUSCULAR VOLUME 103 fL (80-99); MEAN PLATELET VOLUME 10.4 fL (9.0-12.2); MONOCYTES # (AUTO) 0.8 10^3/uL (0.0-1.0); MONOCYTES % (AUTO) 6 % (0-12); NEUTROPHILS # (AUTO) 10.7 10^3/uL (1.8-7.8); NEUTROPHILS % (AUTO) 74 % (42-75); PLATELET COUNT 284 10^3/uL (130-400); WHITE BLOOD COUNT 14.6 10^3/uL (4.3-11.0)
[2022-04-30 09:27] LABS: LYMPHOCYTES % (MANUAL) 17 %; MONOCYTES % (MANUAL) 3 %; NEUTROPHILS % (MANUAL) 80 %; NUCLEATED RED BLOOD CELLS 1; POLYCHROMASIA SLIGHT
[2022-04-30] MEDS ORDERED: LIDOCAINE/EPI 2% 1:200,00 (XYLOCAINE) 20 ML VIAL ONE (10:14)
--- NOTE | 2022-04-30 10:42 | History & Physical-Hospitalist ---
History of Present Illness HPI/Chief Complaint Chief complaint: GI bleed with hypotension and hematemesis with melena History of present illness: This is a 71-year-old who underwent a tongue biopsy recently by Dr. Huang and reported bleeding per rectum so she was admitted to Dr. Huang who assessed the tongue biopsy site not to be the source of bleed but instead a gastrointestinal bleed so she was moved up to the ICU due to mild hypotension and continued melena and IV fluids initiated which helped the hypotension but continued to be hypotensive more bleeding and repeat hemoglobin was 7.8 I did order 2 units of blood and consulted Dr. VALERIO and Richard. Source: patient, RN/MD, old records Exam Limitations: no limitations Date Seen 04/30/22 Time Seen by a Provider: 10:45 Attending Physician [facility] PCP Admitting Physician: Rocky Huang MD Attending Physician: Rocky Huang MD Referring Physician Date of Admission Apr 30, 2022 at 03:10 Home Medications & Allergies Home Medications Reviewed patient Home Medication Reconciliation performed by pharmacy medication reconciliations die cast technician and/or nursing. Patients Allergies have been reviewed. Allergies Allergies Coded Allergies No Known Drug Allergies (Unverified04/22/22) Past Acddgxz-Vmbzaw-Tflzpb Hx Patient Social History Marrital Status: single Employed/Student: retired Tobacco Use?: No Smoking Status: Never a Smoker Smokeless Tobacco Frequency: Never a User Use of E-Cig and/or Vaping dev: No Substance use?: No Alcohol Use?: Yes Alcohol type: Wine Alcohol Frequency: Rarely Pt feels they are or have been: No Immunizations Up To Date Date of Influenza Vaccine: Jul 10, 2019 First/Initial COVID19 Vaccinat: 12/13 Second COVID19 Vaccination Sree: 01/13 Tetanus Booster (TDap): Unknown Hepatitis A: Yes Hepatitis B: Yes PED Vaccines UTD: No Date of Pneumonia Vaccine: Jul 10, 2019 Seasonal Allergies Seasonal Allergies: No Current Status status: No status: No Advance Directives: No Communicates: Verbally Primary Language: B[place] Preferred Spoken Language: [place] Is interpretation needed?: No Sensory deficits: Vision impairment Implanted or Applied Medical D: None Past Medical History Surgeries: Eye Surgery, Gallbladder, Oophorectomy Sleep Apnea Currently Using CPAP: No Currently Using BIPAP: No Atrial Fibrillation, Hypertension 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 Hypertension 2. Diverticulitis 3. Hiatal Hernia 4. Depression 5. Multiple admissions for diverticulitis 6. Recurrent admissions for nausea/vomiting and diverticulitis 7. Lobulated Uterus seen on CT consistent with Fibroids 7-14 8. Obesity Past Surgical History 1. Ovarian Cystectomy 2. Cholecystectomy 3. ERCP with bile duct stent- Dr. Wagner 4. EGD/Colonoscopies- most recent 2010 with Quinonez demonstrating multiple diverticulosis Family Medical History No Family History of: AIDS Abdominal aortic aneurysm [place]'s disease Alcoholism Alzheimer's disease Aphasia Arthritis Asthma Cancer of mouth Cardiovascular disease Cataracts Colon cancer Completed stroke Congenital disease Congenital heart disease Coronary thrombosis Cystic fibrosis Deafness or hearing loss Dementia Diabetes mellitus Drug abuse Dysphasia Fibrocystic disease of breast Gastroenteritis Glaucoma Headache disorder Hypercholesterolemia Hypertension Infertility Kidney disease Myocardial infarction Neoplasm (PT HAD MATERNAL UNCLE WHO FROM BREAST CANCER ) Not obtainable due to adoption Osteoporosis Parkinson's disease Prostate cancer Psychosocial problem Respiratory disorder Seizure disorder Severe allergy Thyroid disease Tuberculosis Visual disorder No Pertinent Family Hx Review of Systems Constitutional: see HPI, malaise, weakness EENTM: no symptoms reported Respiratory: no symptoms reported Cardiovascular: no symptoms reported Gastrointestinal: hematemesis, melena Genitourinary: no symptoms reported Musculoskeletal: no symptoms reported Skin: no symptoms reported Psychiatric/Neurological: No Symptoms Reported All Other Systems Reviewed Negative Unless Noted: Yes Physical Exam Physical Exam Vital Signs Vital Signs - First Documented 04/30/22 08:00 O2 Flow Rate 2.00 Capillary Refill : Less Than 3 Seconds Height, Weight, BMI Height: 5'8.00" Weight: 282lbs. 0.0oz. 127.276734ur; 35.60 BMI Method:Stated General Appearance: No Apparent Distress, Anxious, Chronically ill Eyes: Right Eye Normal Inspection, Right Eye PERRL HEENT: PERRL/EOMI, Normal ENT Inspection, Pharynx Normal, Moist Mucous Membranes Neck: Full Range of Motion, Normal Inspection, Non Tender Respiratory: Chest Non Tender, Lungs Clear, Normal Breath Sounds, No Accessory Muscle Use, No Respiratory Distress Cardiovascular: Regular Rate, Rhythm, No Edema, No Gallop, No JVD, No Murmur, Normal Peripheral Pulses Gastrointestinal: Normal Bowel Sounds, No Organomegaly, No Pulsatile Mass, Non Tender, Soft Back: Normal Inspection, No CVA Tenderness, No Vertebral Tenderness Extremity: Normal Capillary Refill, Normal Inspection, Normal Range of Motion, Non Tender, No Calf Tenderness, No Pedal Edema Neurologic/Psychiatric: Alert, Oriented x3, No Motor/Sensory Deficits, Normal Mood/Affect Skin: Normal Color, Warm/Dry Lymphatic: No Adenopathy Results Results/Procedures Labs Laboratory Tests 04/30/22 02:05 04/30/22 06:57 04/30/22 08:40 04/30/22 13:45 Patient resulted labs reviewed. Assessment/Plan Admission Diagnosis Assessment: GI bleed Acute blood loss anemia requiring transfusion Hypotension from hypovolemia GERD Atrial fibrillation Plan: Transfused [address] VALERIO Consult eICU Protonix IV Admission Status: Inpatient Order (span 2 midnights) Reason for Inpatient Admission: GI bleed Diagnosis/Problems Diagnosis/Problems (1) GI bleed (2) Acute blood loss anemia PRIYANKA CASILLAS DO Apr 30, 2022 10:42
[2022-04-30] MEDS ORDERED: LACTULOSE SYRUP 10GM/15ML (ENULOSE) 30ML UDC PO PRN ×2 (10:45)
[2022-04-30] MEDS ORDERED: LOPERAMIDE 2 MG (IMODIUM) TABLET PO PRN (10:45)
[2022-04-30] MEDS ORDERED: MELATONIN 3 MG TABLET PO PRN ×2 (10:45)
[2022-04-30] MEDS ORDERED: NS IV 500 ML 500 ML IV PRN (10:45)
[2022-04-30] MEDS ORDERED: MILK OF MAGNESIA 400 MG/5 ML 30 ML UDC PO PRN (10:45)
[2022-04-30] MEDS ORDERED: DOCUSATE SODIUM 100 MG (COLACE) CAP PO PRN (10:45)
[2022-04-30] MEDS ORDERED: diphenhydrAMINE 25 MG TAB (BENADRYL) PO PRN ×2 (10:45)
[2022-04-30] MEDS ORDERED: BISACODYL 10 MG SUPP (DULCOLAX) PR PRN (10:45)
[2022-04-30] MEDS ORDERED: ANTACID SUSP 30 ML UDC (MYLANTA) PO PRN (10:45)
[2022-04-30] MEDS ORDERED: ALPRAZolam 0.25 MG (XANAX) TAB PO PRN (10:45)
[2022-04-30] MEDS ORDERED: diphenhydrAMINE 50 MG/ML INJ (BENADRYL) IVP PRN (10:45)
[2022-04-30] MEDS ORDERED: HYDROcodone/APAP 5 MG/325 MG (LORTAB) TAB PO PRN (10:45)
[2022-04-30] MEDS ORDERED: ONDANSETRON 4 MG/2 ML (SDV) Z0FRAN IVP PRN (10:45)
[2022-04-30] MEDS ORDERED: ONDANSETRON 4 MG (ZOFRAN) ORAL DISSOLVE TAB PO PRN ×2 (10:45)
[2022-04-30] MEDS ORDERED: polyethylene glycoL POWDER 17 GM (MIRALAX) PACK PO PRN (10:45)
[2022-04-30] MEDS ORDERED: CALCIUM CARBONATE 500 MG (TUMS) TAB.CHEW PO PRN ×2 (10:45)
--- NOTE | 2022-04-30 11:49 | Tele-ICU Consult ---
History of Present Illness History of Present Illness Date Seen by Provider: Apr 30, 2022 Time Seen by Provider: 11:44 Date of Admission 71 yo F came to ED for GI bleed, possible from tongue. Had recent biopsy of tongue on 04/22, stitches removed and has been bleeding since, on Eliquis for a fib, Has vomited up blood, about 600 mL Tongue lesion not bleeding now Biopsy is benign, thought to be from dental irritation Hb has dropped from 14 to 10, BP 100/60, pulse in 60's, Other PMH NEETU, not on CPAP, HTN Allergies and Home Medications Allergies Coded Allergies: No Known Drug Allergies (Unverified , 04/22/22) Home Medications Acetaminophen 325 Mg Tablet, 325-650 MG PO Q8H PRN for PAIN-MILD (1-4), (Reported) Acetaminophen 650 Mg Tablet.er, 1,300 MG PO UD, (Reported) Amlodipine Besylate 10 Mg Tablet, 10 MG PO DAILY, (Reported) Biotin 10,000 Mcg Capsule, 10,000 MCG PO DAILY, (Reported) Calcium Carbonate/Vitamin D3 600 Mg Calcium-10 Mcg (400 Unit) Tablet, 1 EACH PO DAILY, (Reported) Flecainide Acetate 100 Mg Tablet, 100 MG PO BID, (Reported) Fluoxetine HCl 20 Mg Capsule, 20 MG PO DAILY, (Reported) Hydrocodone/Acetaminophen 5 Mg-325 Mg Tablet, 1 TAB PO Q4H PRN for PAIN-MODERATE (5-7) Prescribed by: ANTONELLA BATISTA on 04/22/22 1157 Losartan Potassium 100 Mg Tablet, 100 MG PO DAILY, (Reported) Multivitamin 1 Each Tablet, 1 EACH PO DAILY, (Reported) Nebivolol HCl 20 Mg Tablet, 40 MG PO DAILY, (Reported) TAKES 2 (20MG) TABS Omeprazole 20 Mg Capsule.dr, 20 MG PO DAILY PRN for HEARTBURN, (Reported) Past Medical/Social/Family Hx Patient Social History Tobacco Use?: No Smoking Status: Never a Smoker Smokeless Tobacco Frequency: Never a User Use of E-Cig and/or Vaping dev: No Substance use?: No Alcohol Use?: Yes Alcohol type: Wine Alcohol Frequency: Rarely Pt stated abuse/neglect: No Immunizations Up To Date Influenza Vaccine Up-to-Date: Yes; Up-to-Date First/Initial COVID19 Vaccinat: 12/13 Second COVID19 Vaccination Sree: 01/13 Tetanus Booster (TDap): Unknown Hepatitis A: Yes Hepatitis B: Yes TB Skin Test: None Date of Pneumonia Vaccine: Jul 10, 2019 Current Status status: No status: No Advance Directives: No Communicates: Verbally Primary Language: Indonesian Preferred Spoken Language: Indonesian Is interpretation needed?: No Sensory deficits: Vision impairment Implanted or Applied Medical D: None Past Medical History Past Medical History 1. Hypertension 2. Diverticulitis 3. Hiatal Hernia 4. Depression 5. Multiple admissions for diverticulitis 6. Recurrent admissions for nausea/vomiting and diverticulitis 7. Lobulated Uterus seen on CT consistent with Fibroids 7-14 8. Obesity Past Surgical History 1. Ovarian Cystectomy 2. Cholecystectomy 3. ERCP with bile duct stent- Dr. Wagner 4. EGD/Colonoscopies- most recent 2010 with Quinonez demonstrating multiple diverticulosis Review of Systems Constitutional: see HPI EENTM: see HPI Respiratory: see HPI Cardiovascular: see HPI Gastrointestinal: see HPI Genitourinary: see HPI Musculoskeletal: see HPI Skin: see HPI Psychiatric/Neurological: See HPI Focused Exam Height, Weight, BMI Height: 5'8.00" Weight: 282lbs. 0.0oz. 127.986356jt; 35.60 BMI Method:Stated Exam Exam Patient acknowledged, consented, and participated in this virtual visit which was conducted using real time audio/video Vital Signs Date Time Temp Pulse Resp B/P (MAP) Pulse Ox O2 Delivery O2 Flow Rate FiO2 04/30/22 11:30 100 Nasal Cannula 2.00 04/30/22 10:00 62 8 97/54 (68) 100 Nasal Cannula 2.00 04/30/22 09:30 63 13 86/58 (67) 100 Nasal Cannula 2.00 04/30/22 09:20 36.1 67 22 110/50 (70) 94 Nasal Cannula 2.00 04/30/22 08:00 100 Nasal Cannula 2.00 04/30/22 07:41 67 04/30/22 07:37 36.0 67 18 113/69 (84) 97 Room Air 04/30/22 06:07 63 04/30/22 04:36 36.2 66 18 95/50 (65) 99 Room Air 04/30/22 04:30 Room Air 04/30/22 03:53 35.4 61 14 109/40 97 Room Air 04/30/22 01:45 Room Air 04/30/22 01:45 35.4 74 14 112/68 (83) 95 Room Air I & O 04/30/22 07:00 Intake Total 1300 ml Output Total 0 ml Balance 1300 ml Height & Weight Height: 5'8.00" Weight: 282lbs. 0.0oz. 127.400276tj; 35.60 BMI Method:Stated General Appearance: No Apparent Distress HEENT: Other (ulcerated area over tongue) Respiratory: Lungs Clear, Rhonci Cardiovascular: Regular Rate, Rhythm, Irregularly Irregular Capillary Refill: Less Than 3 Seconds Gastrointestinal: normal bowel sounds, non tender, soft Neurologic/Psychiatric: Alert, Oriented x3 Results Lab Laboratory Tests 04/30/22 02:05 04/30/22 06:57 04/30/22 08:40 Assessment/Plan Assessment/Plan GI to see re: EGD, monitor Hb, monitor VS, continue on IV PPI Not clear if source really is tongue, may be GI Critical Care: Critically Ill Patient Time spent with patient (mins): 30 JAY JAY ARRIOLA MD Apr 30, 2022 11:49
--- NOTE | 2022-04-30 11:57 | CONSULTATION REPORT ---
DATE OF SERVICE: ATTENDING PRIMARY CORRECTION WORKER: Kristina Jose APRN. ADMITTING PHYSICIAN: Dr. Yusuf. HISTORY OF PRESENT ILLNESS: The patient is a 71-year-old female, who underwent a tongue biopsy approximately 9 days ago. This lesion was initially small, she states; however, grew significantly larger in size and states that a lot of this was due to teeth erosion and irritation. This was excised and found to be benign. She reports that this has not been bleeding. However, she did develop nausea and vomiting of blood and she was initially admitted to the floor. She felt as though she had to have a bowel movement and then had a vasovagal episode. Some darker loose stools were also identified. Upon further questioning, she reports that she has had some issues with peptic ulcer disease as well as reflux and does take omeprazole; however, only on a p.r.n. basis. She is on Eliquis for atrial fibrillation. PAST MEDICAL HISTORY: Gastroesophageal reflux disease, history of hiatal hernia, atrial fibrillation, hypertension, psoriasis, sleep apnea, and chronic urinary tract infection. PAST SURGICAL HISTORY: Laparoscopic cholecystectomy, oophorectomy, and cataract surgery. ALLERGIES: No known drug allergies. MEDICATIONS: Amlodipine 10 mg daily, flecainide 100 mg b.i.d., fluoxetine 20 mg daily, hydrocodone p.r.n., losartan 100 mg daily, nebivolol 20 mg daily, and omeprazole 20 mg p.r.n. SOCIAL HISTORY: Negative smoke and social alcohol. FAMILY HISTORY: Noncontributory. VITAL SIGNS: Temperature 36.1, blood pressure 97/54, pulse 62, respirations 18, and pulse ox 100% on 2 liters nasal cannula. REVIEW OF SYSTEMS: This is a well-nourished female currently in no acute distress. She is awake and alert and answers all questions appropriately. No shortness of breath or difficulty in breathing. No chest pain, palpitations, diaphoresis. She did have an episode of nausea and vomiting, which she states was blood. While being admitted; however, she states that she had a few of these episodes at home as well. She also had an episode of liquid stools, which were dark in coloration. She does not report any abdominal pain. No fever, chills, and no recent inadvertent weight loss. All other review of systems negative. PHYSICAL EXAMINATION: CHEST: Few scattered rales bilaterally. HEART: Regular, no murmurs. EXTREMITIES: No lower extremity edema, negative Homans sign. HEENT: No scleral icterus. NECK: No cervical lymphadenopathy. ABDOMEN: Soft, nontender, and nondistended. SKIN: Warm, dry. LABORATORY DATA: WBC 14.6, hemoglobin 10.8, hematocrit 33, and platelets 284. BUN 29 and creatinine 0.73. ASSESSMENT AND PLAN: A 71-year-old female with likely upper GI bleed secondary to gastroesophageal reflux disease and/or peptic ulcer disease. For now, we will continue with resuscitation and hold her anticoagulation. We will also continue to monitor her hemoglobin and hematocrit. We will also proceed with Protonix 40 mg on a b.i.d. basis as well as Carafate 1 gram q.i.d. We will also proceed with an EGD on this admission. Job ID: [id number] DocumentID: [id number] Dictated Date: 04/30/2022 11:23:41 Chartered Accountant Date: 04/30/2022 11:56:47 Dictated By: RICARDO VALERIO MD [facility]
[2022-04-30 13:58] LABS: HEMOGLOBIN 7.8 g/dL (11.5-16.0)
[2022-04-30] MEDS: SUCRALFATE 1 GM (CARAFATE) TAB PO SCH ×3 (14:11→21:22)
[2022-04-30] MEDS ORDERED: NS IV 500 ML 500 ML IV SCH ×4 (15:00→23:00)
--- NOTE | 2022-04-30 15:32 | Tele-ICU Progress Note ---
Subjective Date Seen by a Provider: Apr 30, 2022 Time Seen by a Provider: 15:31 Subjective/Events-last exam had large emeis of blood around 500 mL, to get one unit of PRBC's, one more ordered to give and one to hold WIll notify surgeon about need for EGD, BP 72/34, needs larger IV either 18G angiocath or central line last Hb 7.8, was 10.8, will give 500 mL of normal saline IV now as bolus Pt is awake and alert Sepsis Event Evaluation Height, Weight, BMI Height: 5'8.00" Weight: 282lbs. 0.0oz. 127.219449xa; 35.60 BMI Method:Stated Exam Exam Patient acknowledged, consented, and participated in this virtual visit which was conducted using real time audio/video Vital Signs Date Time Temp Pulse Resp B/P (MAP) Pulse Ox O2 Delivery O2 Flow Rate FiO2 04/30/22 14:00 65 11 97/53 (68) 100 Room Air 04/30/22 13:13 67 04/30/22 13:00 71 8 93/62 (72) 100 Nasal Cannula 2.00 04/30/22 12:00 100 Nasal Cannula 2.00 04/30/22 12:00 63 8 95/50 (65) 100 Nasal Cannula 2.00 04/30/22 11:30 100 Nasal Cannula 2.00 04/30/22 11:00 64 8 73/53 (60) 100 Nasal Cannula 2.00 04/30/22 10:00 62 8 97/54 (68) 100 Nasal Cannula 2.00 04/30/22 09:30 63 13 86/58 (67) 100 Nasal Cannula 2.00 04/30/22 09:20 36.1 67 22 110/50 (70) 94 Nasal Cannula 2.00 04/30/22 08:00 100 Nasal Cannula 2.00 04/30/22 07:37 36.0 67 18 113/69 (84) 97 Room Air 04/30/22 06:07 63 04/30/22 04:36 36.2 66 18 95/50 (65) 99 Room Air 04/30/22 04:30 Room Air 04/30/22 03:53 35.4 61 14 109/40 97 Room Air 04/30/22 01:45 Room Air 04/30/22 01:45 35.4 74 14 112/68 (83) 95 Room Air I & O 04/30/22 07:00 Intake Total 1300 ml Output Total 0 ml Balance 1300 ml Height & Weight Height: 5'8.00" Weight: 282lbs. 0.0oz. 127.538051wv; 35.60 BMI Method:Stated HEENT: Other (ulcerated area over tongue) Respiratory: Lungs Clear, Rhonci Cardiovascular: Regular Rate, Rhythm, Irregularly Irregular Capillary Refill: Less Than 3 Seconds Gastrointestinal: normal bowel sounds, non tender, soft Neurologic/Psychiatric: Alert, Oriented x3 Results Lab Laboratory Tests 04/30/22 02:05 04/30/22 06:57 04/30/22 08:40 04/30/22 13:45 Assessment/Plan Assessment/Plan give blood , saline bolus, should have EGD Critical Care: Critically Ill Patient JAY JAY ARRIOLA MD Apr 30, 2022 15:32
[2022-04-30] MEDS ORDERED: fentaNYL INJ 100 MCG/2 ML AMP IVP PRN (16:30)
[2022-04-30] MEDS ORDERED: PROMETHAZINE INJ 25 MG/ML (PHENERGAN) AMP IVP PRN (16:30)
[2022-04-30] MEDS: NS IV 500 ML 500 ML IV SCH (17:07)
[2022-04-30] MEDS: PANTOPRAZOLE INJECTION 200 MG in NS (IVPB) 100 ML IV SCH (17:08)
--- NOTE | 2022-04-30 17:08 | Diagnostic Imaging Report ---
INDICATION: Central line placement. COMPARISON: 03/03/2021. FINDINGS: Single lateral radiographic view of the chest was obtained and demonstrates interval placement of left subclavian central venous catheter. Central tip is obscured, but extends at least into the upper SVC. Cardiac silhouette and pulmonary vasculature are within normal limits. Lungs are clear. There is no large effusion or pneumothorax. Osseous structures show no acute abnormalities. IMPRESSION: 1. New left subclavian central line. Again, central tip of the line is obscured, but extends at least into the SVC. 2. No pneumothorax. Dictated by: Dictated on workstation # [id number]
[2022-04-30] MEDS: OCTREOTIDE INJECTION 500 MCG in NS (IVPB) 99 ML IV SCH (17:10)
[2022-04-30] MEDS: DOCUSATE SODIUM 100 MG (COLACE) CAP PO SCH (20:35)
[2022-04-30] MEDS: SENNOSIDES 8.6 MG (SENOKOT) TAB PO SCH (20:35)
[2022-04-30] MEDS: SENNA W/DOCUSATE (SENOKOT S) TABLET PO SCH (20:35)
[2022-04-30 21:59] LABS: HEMOGLOBIN 7.1 g/dL (11.5-16.0)
--- NOTE | 2022-04-30 23:19 | OPERATIVE REPORT ---
DATE OF SERVICE: ADMITTING PHYSICIAN: Dr. Yusuf. ATTENDING PRIMARY CARE PHYSICIAN: Dr. Kristina Jose. PREOPERATIVE DIAGNOSES: Upper GI bleed and hypotension. POSTOPERATIVE DIAGNOSES: Upper GI bleed and hypotension. PROCEDURE: Placement of left subclavian central venous catheter. SURGEON: Ricardo Valerio MD ANESTHESIA: Local. ESTIMATED BLOOD LOSS: Minimal. DISPOSITION: The patient tolerated the procedure well. INDICATIONS: The patient is a 71-year-old female, who underwent a tongue biopsy approximately 9 days ago. She states that the tongue lesion was initially small, however, grew larger in size and believes that this was due to teeth erosion and irritation; however, the lesion did grow significantly in size. She then underwent excision of the lesion, which was found to be benign. Since that time, the lesions visible does not appear to be bleeding. She did develop nausea and vomiting and did have a hematemesis and states that she had an episode at home; however, she also had an episode on the general surgical floor. She was also found to be hypotensive and was transferred to the ICU. Since being admitted, she did have another episode of hematemesis. Upon further questioning, she reports that she has had some peptic ulcer disease as well as gastroesophageal reflux disease; however, nothing too significant and only takes omeprazole on a p.r.n. basis. She is on Eliquis for atrial fibrillation. DESCRIPTION OF PROCEDURE: The neck and chest were prepped and draped in standard surgical fashion. A 1% lidocaine was used to anesthetize the left subclavian region. The left subclavian vein was then cannulated with drawing of venous blood. The guidewire was then inserted without any resistance. Cannulating needle removed and a skin incision made using 11 blade. The venous dilator was used to create a tract and through this opening, a triple lumen central venous catheter was placed over the guidewire using the Seldinger technique. Guidewire was removed and all three ports rosmery venous blood and saline pushed in without any resistance. The catheter was then sutured to the skin using 3-0 silk interrupted sutures. Catheter was then cleaned and covered with Op-Site. The patient tolerated the procedure well. We will get a post-procedure chest x-ray. Job ID: [id number] DocumentID: [id number] Dictated Date: 04/30/2022 16:36:24 Breakdown Man Date: 04/30/2022 23:19:25 Dictated By: RICARDO VALERIO MD
[2022-05-01] VITALS (46 sets, daily range): BP systolic 71–136; BP diastolic 39–89
[2022-05-01] MEDS: morphine INJ 4 MG/ML 1 ML (VIAL/SYRINGE) IV PRN ×2 (00:35→04:58)
[2022-05-01] MEDS: LIDOCAINE 2% VISCOUS 15 ML UDC PO PRN (02:32)
[2022-05-01] MEDS: NS IV 1000 ML 1,000 ML IV SCH ×4 (02:32→16:28)
[2022-05-01] MEDS: OCTREOTIDE INJECTION 500 MCG in NS (IVPB) 99 ML IV SCH ×3 (02:38→20:21)
[2022-05-01 03:18] LABS: EOSINOPHILS % (AUTO) 0 % (0-10); LYMPHOCYTES % (AUTO) 16 % (12-44)
[2022-05-01 03:19] LABS: BASOPHILS % (AUTO) 0 % (0-10); LYMPHOCYTES # (AUTO) 1.8 10^3/uL (1.0-4.0); MEAN CORPUSCULAR HEMOGLOBIN 33 pg (25-34); MEAN CORPUSCULAR HGB CONC 34 g/dL (32-36); MEAN CORPUSCULAR VOLUME 96 fL (80-99); MEAN PLATELET VOLUME 10.5 fL (9.0-12.2); MONOCYTES # (AUTO) 0.6 10^3/uL (0.0-1.0); MONOCYTES % (AUTO) 5 % (0-12); NEUTROPHILS # (AUTO) 8.9 10^3/uL (1.8-7.8); NEUTROPHILS % (AUTO) 78 % (42-75); PLATELET COUNT 127 10^3/uL (130-400); WHITE BLOOD COUNT 11.3 10^3/uL (4.3-11.0)
[2022-05-01 03:33] LABS: HEMATOCRIT 18 % (35-52); HEMOGLOBIN 6.2 g/dL (11.5-16.0)
[2022-05-01 03:36] LABS: ALBUMIN 2.1 GM/DL (3.2-4.5); POTASSIUM 3.8 MMOL/L (3.6-5.0)
[2022-05-01 03:37] LABS: CALCIUM 6.6 MG/DL (8.5-10.1)
[2022-05-01 03:38] LABS: TOTAL PROTEIN 3.5 GM/DL (6.4-8.2)
[2022-05-01 03:40] LABS: BILIRUBIN,TOTAL 0.9 MG/DL (0.1-1.0)
[2022-05-01 03:41] LABS: PHOSPHORUS 4.6 MG/DL (2.3-4.7)
[2022-05-01 03:42] LABS: CREATININE SERUM 1.03 MG/DL (0.60-1.30)
[2022-05-01 03:44] LABS: MAGNESIUM 1.3 MG/DL (1.6-2.4)
[2022-05-01] MEDS ORDERED: NS IV 500 ML 500 ML IV SCH ×2 (03:45→06:30)
[2022-05-01] MEDS: POTASSIUM CL 10MEQ/50ML IVPB 50 ML IV SCH (05:11)
[2022-05-01] MEDS: MAGNESIUM 1 GM/100 ML IVPB 100 ML IV SCH ×4 (05:13→11:29)
[2022-05-01] MEDS: KCL 20 MEQ TAB (K-DUR) PO SCH (05:13)
--- NOTE | 2022-05-01 06:35 | Progress Note - Hospitalist ---
Subjective HPI/CC On Admission Date Seen by Provider: May 01, 2022 Time Seen by Provider: 11:00 Chief complaint: GI bleed with hypotension and hematemesis with melena History of present illness: This is a 71-year-old who underwent a tongue biopsy recently by Dr. Huang and reported bleeding per rectum so she was admitted to Dr. Huang who assessed the tongue biopsy site not to be the source of bleed but instead a gastrointestinal bleed so she was moved up to the ICU due to mild hypotension and continued melena and IV fluids initiated which helped the hypotension but continued to be hypotensive more bleeding and repeat hemoglobin was 7.8 I did order 2 units of blood and consulted Dr. VALERIO and eICU. Subjective/Events-last exam Doing better 7 units of blood transfused thus far Cardiology consulted Volume overload suspected so will initiate Vapotherm or biPAP No pain reported EGD confirmed bleeding ulcers Review of Systems General: Fatigue, Malaise Focused Exam Lactate Level 05/01/22 16:30: Lactic Acid Level 2.53*H 05/01/22 18:50: Lactic Acid Level 2.17*H 05/01/22 20:45: Lactic Acid Level 1.95 Lactic Acid Level Objective Exam Vital Signs Vital Signs Date Time Temp Pulse Resp B/P (MAP) Pulse Ox O2 Delivery O2 Flow Rate FiO2 05/02/22 02:47 93 Nasal Cannula 2.00 05/02/22 02:23 78 05/02/22 01:00 20 134/43 (73) 05/02/22 00:00 30 05/02/22 00:00 36.2 Capillary Refill : Less Than 3 Seconds General Appearance: No Apparent Distress, WD/WN, Anxious, Chronically ill Respiratory: Lungs Clear, Normal Breath Sounds Cardiovascular: Regular Rate, Rhythm Neurologic/Psychiatric: Alert, Oriented x3, No Motor/Sensory Deficits, Normal Mood/Affect Results/Procedures Lab Laboratory Tests 05/01/22 08:30 05/01/22 14:50 05/01/22 20:45 05/02/22 04:30 Patient resulted labs reviewed. Assessment/Plan Assessment and Plan Assess & Plan/Chief Complaint Assessment: GI bleed due to stomach ulcers OAC for CVA PPx from AF Acute blood loss anemia requiring transfusion Hypotension from hypovolemia considered shock now due to pressors GERD Atrial fibrillation Plan: Transfused [address] VALERIO s/p EGD showing bleeding ulcers Consult eICU is appreciated Dr Polanco consulted Protonix drip with Octreotide drip Levophed for hypotension Critical Care Critically Ill Patient Diagnosis/Problems Diagnosis/Problems (1) GI bleed (2) Acute blood loss anemia Clinical Quality Measures DVT/VTE Risk/Contraindication: Contraindications-Pharm: Other *list below* Other: PRIYANKA Johnson DO May 01, 2022 06:35
[2022-05-01] MEDS: NOREPINEPHRINE 8 MG/250 ML 250 ML IV SCH ×2 (07:31→20:21)
[2022-05-01] MEDS ORDERED: EPINEPHrine INJECTION 1 MG/ML AMP ONE (08:18)
[2022-05-01] MEDS ORDERED: HURRICAINE EXT TUBE (BENZOCAINE) ONE (08:20)
[2022-05-01] MEDS ORDERED: LIDOCAINE JELLY 2% 6 ML SYRINGE ONE (08:25)
--- NOTE | 2022-05-01 08:38 | Progress Note-Pre Operative ---
Pre-Operative Progress Note Date of Available H&P: May 01, 2022 Date H&P Reviewed: May 01, 2022 Time H&P Reviewed: 08:30 History & Physical: No changes noted Pre-Operative Diagnosis: upper GI bleed RICARDO VALERIO MD May 01, 2022 08:38
[2022-05-01 08:43] LABS: HEMOGLOBIN 9.6 g/dL (11.5-16.0)
[2022-05-01] MEDS ORDERED: LACTATED RINGERS 1,000 ML IV ONE ×2 (08:59→10:15)
[2022-05-01] MEDS: SENNA W/DOCUSATE (SENOKOT S) TABLET PO SCH ×2 (09:00→20:21)
[2022-05-01] MEDS: SENNOSIDES 8.6 MG (SENOKOT) TAB PO SCH ×2 (09:00→20:21)
[2022-05-01] MEDS: SUCRALFATE 1 GM (CARAFATE) TAB PO SCH ×4 (09:00→20:20)
[2022-05-01] MEDS: DOCUSATE SODIUM 100 MG (COLACE) CAP PO SCH ×2 (09:00→20:21)
[2022-05-01] MEDS: HURRICAINE EXT TUBE (BENZOCAINE) XX PRN (09:15)
--- NOTE | 2022-05-01 09:30 | Tele-ICU Progress Note ---
Subjective Date Seen by a Provider: May 01, 2022 Time Seen by a Provider: 07:22 Subjective/Events-last exam This virtual visit was conducted using real time audio/video. Thank you for asking us to see this patient for UGIB. Recent events: For EGD this AM. Poor UO. Recd 6 Units PRBCs. PE: Obese. VSS. O2 sat 96% on RA HEENT: No obvious masses, adenopathy or JVD. Chest: clear to auscultation. Diminished. CV: RRR S1 S2 No murmur or added sounds. Abd: Non-tender. Bowel sounds Y. : Unremarkable. External cath. DISTRIBUTION ENGINEERING TECHNOLOGIST/psychiatric: Grossly intact. No obvious focal findings. Extremities: No edema. Capillary refill < 3 seconds. Skin: unremarkable. Results: Elevated WCC 11.3, BUN 36, BG 141, . Decreased Hb 9.6 following 6 Units PRBCs. Mag 1.3. CXR: clear. Available chart/ vitals / labs / images reviewed. Video assessment done using teleICU camera, rest of exam as per RN. A/P: Critical Care: critically ill patient. Cont. IVF, PPI, Octreotide, Sucralfate, Levophed. ag rider ordered. Discussed with BRET Sanders. Asked RN to reach out to eICU if any questions or concerns later. Time spent with patient/coordination of care with other health professionals (mins): 23. Sepsis Event Evaluation Height, Weight, BMI Height: 5'8.00" Weight: 282lbs. 0.0oz. 127.658861xu; 35.60 BMI Method:Stated Exam Exam Patient acknowledged, consented, and participated in this virtual visit which was conducted using real time audio/video Vital Signs Date Time Temp Pulse Resp B/P (MAP) Pulse Ox O2 Delivery O2 Flow Rate FiO2 05/01/22 09:00 75 13 122/45 (70) 100 Room Air 05/01/22 08:23 100 Room Air 05/01/22 08:15 36.0 60 18 110/52 100 Room Air 05/01/22 08:10 36.0 61 18 119/58 100 Room Air 05/01/22 08:00 36.0 05/01/22 08:00 59 119/58 (78) 100 Room Air 05/01/22 07:31 67 80/58 05/01/22 07:00 68 96/89 (91) 100 Room Air 05/01/22 07:00 67 12 80/58 100 Nasal Cannula 2.00 05/01/22 07:00 68 05/01/22 06:40 36.0 73 12 76/47 100 Nasal Cannula 2.00 05/01/22 06:20 71 12 71/41 100 Nasal Cannula 2.00 05/01/22 06:00 71 72/41 (51) 100 Room Air 05/01/22 06:00 70 12 73/48 100 Nasal Cannula 2.00 05/01/22 06:00 72 12 83/52 100 Nasal Cannula 2.00 05/01/22 05:40 72 12 76/39 100 Nasal Cannula 2.00 05/01/22 05:40 35.9 73 12 86/48 100 Nasal Cannula 2.00 05/01/22 05:30 35.8 73 12 86/48 100 Nasal Cannula 2.00 05/01/22 05:30 35.9 72 12 81/41 100 Nasal Cannula 2.00 05/01/22 05:10 35.8 67 12 93/47 100 Nasal Cannula 2.00 05/01/22 05:00 66 98/54 (69) 100 Room Air 05/01/22 04:55 81 12 94/57 100 Nasal Cannula 2.00 05/01/22 04:30 73 12 80/51 100 Nasal Cannula 2.00 05/01/22 04:00 73 12 86/48 100 Nasal Cannula 2.00 05/01/22 04:00 73 94/57 (69) 100 Room Air 05/01/22 04:00 98 Room Air 05/01/22 03:40 73 12 89/49 100 Nasal Cannula 2.00 05/01/22 03:20 36.2 73 12 89/51 100 Nasal Cannula 2.00 05/01/22 03:05 77 12 89/47 100 Nasal Cannula 2.00 05/01/22 03:00 77 89/51 (64) 100 Room Air 05/01/22 02:55 36.2 73 12 93/61 100 Nasal Cannula 2.00 05/01/22 02:40 36.1 75 12 95/55 100 Nasal Cannula 2.00 05/01/22 02:30 71 12 105/52 100 Nasal Cannula 05/01/22 02:10 71 12 104/52 100 Nasal Cannula 2.00 05/01/22 02:00 71 13 104/52 (69) 100 Room Air 05/01/22 01:50 72 12 108/43 100 Nasal Cannula 2.00 05/01/22 01:30 71 12 101/48 99 Nasal Cannula 2.00 05/01/22 01:10 74 12 97/53 97 Nasal Cannula 2.00 05/01/22 01:00 73 05/01/22 01:00 73 15 105/54 (71) 100 Room Air 05/01/22 00:50 35.8 73 12 115/53 98 Nasal Cannula 2.00 05/01/22 00:40 35.9 72 12 108/71 97 Nasal Cannula 2.00 05/01/22 00:40 70 14 88/52 99 Nasal Cannula 2.00 05/01/22 00:20 74 12 101/51 98 Nasal Cannula 2.00 05/01/22 00:00 71 12 106/58 98 Nasal Cannula 2.00 05/01/22 00:00 71 13 109/54 (72) 100 Room Air 05/01/22 00:00 98 Room Air 05/01/22 00:00 74 12 117/71 99 Nasal Cannula 2.00 04/30/22 23:40 73 12 109/54 98 Nasal Cannula 2.00 04/30/22 23:20 72 12 108/46 95 Nasal Cannula 2.00 04/30/22 23:05 35.8 79 12 91/43 Nasal Cannula 2.00 04/30/22 23:00 79 20 91/43 (59) 99 Room Air 04/30/22 23:00 35.9 71 12 87/51 Room Air 04/30/22 22:20 35.9 71 12 87/51 96 Room Air 04/30/22 22:00 75 12 90/53 96 Room Air 04/30/22 22:00 78 31 102/52 (69) 92 Room Air 04/30/22 21:40 76 12 93/47 97 Room Air 04/30/22 21:20 76 12 84/54 96 Room Air 04/30/22 21:00 79 12 79/38 95 Room Air 04/30/22 21:00 79 16 89/49 (62) 97 Room Air 04/30/22 20:40 80 12 89/49 96 Room Air 04/30/22 20:25 35.8 77 12 91/51 99 Room Air 04/30/22 20:20 36.0 76 12 94/57 Room Air 04/30/22 20:00 98 Room Air 04/30/22 20:00 83 15 87/51 (63) 100 Room Air 04/30/22 20:00 36.0 77 12 96/52 97 Room Air 04/30/22 19:30 74 12 101/57 97 Room Air 04/30/22 19:00 72 12 98/50 98 Room Air 04/30/22 19:00 80 04/30/22 19:00 78 17 101/58 (72) 97 Room Air 04/30/22 18:10 36.2 74 20 113/37 99 Room Air 04/30/22 18:05 36.2 73 20 118/56 99 Room Air 04/30/22 18:04 70 16 96/59 (71) 100 Room Air 04/30/22 18:00 36.3 74 18 96/59 99 Room Air 04/30/22 17:55 36.1 68 20 118/62 98 Room Air 04/30/22 17:00 82 16 98/51 (67) 100 Room Air 04/30/22 16:20 36.2 78 18 105/56 95 Room Air 04/30/22 16:15 36.3 68 18 118/84 95 Room Air 04/30/22 16:10 36.2 67 22 95/44 95 Room Air 04/30/22 16:05 36.2 66 20 93/47 95 Room Air 04/30/22 16:00 100 Room Air 04/30/22 16:00 74 11 95/44 (61) 100 Room Air 04/30/22 15:00 72 11 87/52 (64) 100 Room Air 04/30/22 14:00 65 11 97/53 (68) 100 Room Air 04/30/22 13:13 67 04/30/22 13:00 71 8 93/62 (72) 100 Nasal Cannula 2.00 04/30/22 12:00 100 Nasal Cannula 2.00 04/30/22 12:00 63 8 95/50 (65) 100 Nasal Cannula 2.00 04/30/22 11:30 100 Nasal Cannula 2.00 04/30/22 11:00 64 8 73/53 (60) 100 Nasal Cannula 2.00 04/30/22 10:00 62 8 97/54 (68) 100 Nasal Cannula 2.00 04/30/22 09:30 63 13 86/58 (67) 100 Nasal Cannula 2.00 I & O 05/01/22 07:00 Intake Total 2555 ml Output Total 2800 ml Balance -245 ml Height & Weight Height: 5'8.00" Weight: 282lbs. 0.0oz. 127.123591aw; 35.60 BMI Method:Stated General Appearance: No Apparent Distress, Anxious, Chronically ill HEENT: PERRL/EOMI, Normal ENT Inspection, Pharynx Normal, Moist Mucous Membranes Neck: Full Range of Motion, Normal Inspection, Non Tender Respiratory: Chest Non Tender, Lungs Clear, Normal Breath Sounds, No Accessory Muscle Use, No Respiratory Distress Cardiovascular: Regular Rate, Rhythm, No Edema, No Gallop, No JVD, No Murmur, N ormal Peripheral Pulses Capillary Refill: Less Than 3 Seconds Gastrointestinal: normal bowel sounds, non tender, soft Extremity: Normal Capillary Refill, Normal Inspection, Normal Range of Motion, Non Tender, No Calf Tenderness, No Pedal Edema Neurologic/Psychiatric: Alert, Oriented x3, No Motor/Sensory Deficits, Normal Mood/Affect Skin: Normal Color, Warm/Dry Lymphatic: No Adenopathy Results Lab Laboratory Tests 04/30/22 02:05 04/30/22 06:57 04/30/22 08:40 04/30/22 13:45 04/30/22 21:45 05/01/22 03:00 05/01/22 08:30 Assessment/Plan Assessment/Plan See free text. Critical Care: Critically Ill Patient SHWETA SALOMON MD May 01, 2022 09:30
[2022-05-01] MEDS ORDERED: proPOfol 200 MG/20 ML (DIPRIVAN) VIAL IV ONE ×3 (09:31→10:30)
[2022-05-01] MEDS: NS IV 500 ML 500 ML IV SCH (10:10)
--- NOTE | 2022-05-01 10:13 | Progress Note-Post Operative ---
Post-Operative Progess Note Surgeon (s)/Optician Manager (s) Surgeon RICARDO VALERIO MD Optician Manager: none Pre-Operative Diagnosis upper GI bleed Post-Operative Diagnosis bleeding camerons ulcer, moderate HH(3cm), severe gastritis, no distal obst Procedure & Operative Findings Date of Procedure 05/01/22 Procedure Performed/Findings EGD with hemostasis. Anesthesia Type mac Estimated Blood Loss Estimated blood loss (mL): minimal Specimens/Packing Specimens Removed none RICARDO VALERIO MD May 01, 2022 10:13
[2022-05-01] MEDS ORDERED: proPOfol 500 MG/50 ML (DIPRIVAN) VIAL IV ONE (10:15)
--- NOTE | 2022-05-01 10:35 | Anesthesia-General Post-Op ---
MAC Patient Condition Mental Status/LOC: Same as Preop Cardiovascular: Satisfactory Nausea/Vomiting: Absent Respiratory: Satisfactory Pain: Controlled Complications: Absent Post Op Complications Complications None Follow Up Care/Instructions Patient Instructions None needed. Anesthesiology Discharge Order Discharge Order Patient is doing well, no complaints, stable vital signs, no apparent adverse anesthesia problems. No complications reported per nursing. SCOTT BOX CRNA May 01, 2022 10:35
[2022-05-01] MEDS ORDERED: LACTATED RINGERS 1,000 ML IV STA (10:47)
[2022-05-01] MEDS ORDERED: LIDOCAINE JELLY 2% 6 ML SYRINGE MM PRN (11:00)
--- NOTE | 2022-05-01 12:04 | Consultation-Cardiology ---
HPI-Cardiology Cardiology Consultation: Date of Consultation 05/01/22 Date of Admission 04/30/22 Attending Physician [facility] Admitting Physician Admitting Physician: Rocky Huang MD Attending Physician: Rocky Huang MD Consulting Physician KAYLI WOODY JR, MD HPI: Time Seen by a Provider: 12:00 Chief Complaint: REASON FOR CONSULTATION: Atrial fibrillation. I had the pleasure of seeing Luca in the intensive care unit at [facility] in [place], [place] today. She is well-known to me from the outpatient office setting. She has a history of paroxysmal/persistent atrial fibrillation first identified in March 2021, hypertension, hyperlipidemia, obstructive sleep apnea, and obesity. She recently underwent excision of a lesion on her tongue by Dr. Huang. She had stopped her Eliquis for that procedure and then resumed the Eliquis postoperatively. Her tongue started bleeding. She called Dr. Huang's office who told her to stop the Eliquis. However, then she started bleeding even more. She was swallowing much of the blood. Then she started v omiting blood and came to the hospital for further treatment and evaluation. She was found to have severe anemia. She was admitted to the intensive care unit for volume resuscitation and blood transfusions. Earlier today she underwent an upper endoscopy which showed a bleeding ulcer as well as some gastritis and extensive blood clot in the stomach. I was then consulted for management of her anticoagulation. When I saw her she was complaining of some shortness of breath while lying flat in bed. Prior to this morning, she denies any shortness of breath. She denies chest discomfort, paroxysmal nocturnal dyspnea, orthopnea, or palpitations. She had been having some lightheaded spells but denies any syncope. From time to time, she will also get some mild ankle edema. Certain portions of this document may have been dictated utilizing voice recognition technology. Inherent to this technology, typographical and grammatical errors may exist. As much as I am diligent to identify and correct these mistakes, some errors may remain in the document. Review of Systems-Cardiology Review of Systems Other comments Review of 10 organ systems is as per the history of present illness, otherwise negative. All Other Systems Reviewed Negative Unless Noted: Yes [id number] Hx Patient Social History Marrital Status: single Employed/Student: retired Smoking Status: Never a Smoker 2nd Hand Smoke Exposure: No Have you traveled recently?: No Alcohol Use?: Yes Pt feels they are or have been: No Immunizations Up To Date Tetanus Booster (TDap): Unknown Date of Pneumonia Vaccine: Jul 10, 2019 Date of Influenza Vaccine: Jul 10, 2019 Past Medical History PMH As described under Assessment. Family Medical History Family Medical History: She does not know of any family history of premature coronary artery disease. 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 ) Not obtainable due to adoption Osteoporosis Parkinson's disease Prostate cancer Psychosocial problem Respiratory disorder Seizure disorder Severe allergy Thyroid disease Tuberculosis Visual disorder Allergies and Home Medications Allergies Coded Allergies: No Known Drug Allergies (Unverified , 04/22/22) Patient Home Medication List Home Medication List Reviewed: Yes Acetaminophen (Tylenol) 325 Mg Tablet, 325-650 MG PO Q8H PRN for PAIN-MILD (1- 4), (Reported) Entered as Reported by: SHARIF GONZÁLES on 05/06/21 0819 Acetaminophen (Tylenol Arthritis) 650 Mg Tablet.er, 1,300 MG PO UD, (Reported) Entered as Reported by: GEM CISNEROS on 12/23/21 0815 Amlodipine Besylate (Amlodipine Besylate) 10 Mg Tablet, 10 MG PO DAILY, (Reported) Entered as Reported by: NERI GIBSON on 06/30/20 0728 Biotin (Biotin) 10,000 Mcg Capsule, 10,000 MCG PO DAILY, (Reported) Entered as Reported by: ANGY LAO on 04/19/22 1154 Calcium Carbonate/Vitamin D3 (Calcium 600 + Vit D3 400 Tab) 600 Mg Calcium-10 Mcg (400 Unit) Tablet, 1 EACH PO DAILY, (Reported) Entered as Reported by: ANGY LAO on 04/19/22 1154 Flecainide Acetate (Flecainide Acetate) 100 Mg Tablet, 100 MG PO BID, (Reported) Entered as Reported by: GEM CISNEROS on 12/23/21 0815 Fluoxetine HCl (Fluoxetine HCl) 20 Mg Capsule, 20 MG PO DAILY, (Reported) Entered as Reported by: SHARIF GONZÁLES on 05/06/21 0819 Hydrocodone/Acetaminophen (Hydrocodone-Acetamin 5-325 mg) 5 Mg-325 Mg Tablet, 1 TAB PO Q4H PRN for PAIN-MODERATE (5-7) Prescribed by: ANTONELLA BATISTA on 04/22/22 1157 Losartan Potassium (Losartan Potassium) 100 Mg Tablet, 100 MG PO DAILY, (Reported) Entered as Reported by: ANGY LAO on 04/19/22 1154 Multivitamin (Multivitamin) 1 Each Tablet, 1 EACH PO DAILY, (Reported) Entered as Reported by: GEM CISNEROS on 12/23/21 0815 Nebivolol HCl (Bystolic) 20 Mg Tablet, 40 MG PO DAILY, (Reported) Entered as Reported by: NERI GIBSON on 06/30/20 0728 Omeprazole (Omeprazole) 20 Mg Capsule.dr, 20 MG PO DAILY PRN for HEARTBURN, (Reported) Entered as Reported by: SHARIF GONZÁLES on 03/03/21 1552 [Pcn 500MG Tid 10DAYS] , (Reported) Entered as Reported by: ANGY LAO on 04/19/22 1154 [Thrive Vitamin] Unknown Strength , Unknown Dose, (Reported) Entered as Reported by: ANGY LAO on 04/19/22 1154 Exam Vital Signs Vital Signs Date Time Temp Pulse Resp B/P (MAP) Pulse Ox O2 Delivery O2 Flow Rate FiO2 05/01/22 11:00 71 18 129/65 (86) 92 Room Air 05/01/22 08:15 36.0 05/01/22 07:00 2.00 Physical Exam General: Alert. No acute distress. Well nourished and appears stated age. She is obese. Eye: Extraocular movements are intact. Conjunctivae are clear. There are no xanthelasma. HENT: Normocephalic. Atraumatic. Carotid pulsations 2/2 without bruits. Neck: Jugular venous pressure does not appear elevated. No thyromegaly appreciated. Respiratory: Lungs are clear to auscultation. Respirations are non-labored. Breath sounds are equal. Symmetrical chest wall expansion. Cardiovascular: Normal rate. Regular rhythm. No murmur. No gallop. Point of maximal impulse is not appear displaced. Good pulses equal in all extremities. Trace bilateral pretibial edema. Gastrointestinal: Soft. Hypoactive bowel sounds. Skin: Skin turgor is normal. There is no pallor. Musculoskeletal: No kyphosis or scoliosis appreciated. Neurologic: Alert and oriented to person, place, time. Cranial nerves 3-12 appear grossly intact. The patient has good motor tone strength in the upper and lower extremities bilaterally. Psychiatric: Cooperative. Appropriate mood & affect. Labs Laboratory Tests Test 04/30/22 13:45 04/30/22 21:45 05/01/22 03:00 05/01/22 08:30 Range/Units Hemoglobin 7.8 #L 7.1 L 6.2 *L 9.6 #L 11.5-16.0 g/dL Hematocrit 24 L 21 L 18 *L 28 L 35-52 % White Blood Count 11.3 H 4.3-11.0 10^3/uL Red Blood Count 1.89 L 3.80-5.11 10^6/uL Mean Corpuscular Volume 96 80-99 fL Mean Corpuscular Hemoglobin 33 25-34 pg Mean Corpuscular Hemoglobin Concent 34 32-36 g/dL Red Cell Distribution Width 16.3 H 10.0-14.5 % Platelet Count 127 L 130-400 10^3/uL Mean Platelet Volume 10.5 9.0-12.2 fL Immature Granulocyte % (Auto) 1 % Neutrophils (%) (Auto) 78 H 42-75 % Lymphocytes (%) (Auto) 16 12-44 % Monocytes (%) (Auto) 5 0-12 % Eosinophils (%) (Auto) 0 0-10 % Basophils (%) (Auto) 0 0-10 % Neutrophils # (Auto) 8.9 H 1.8-7.8 10^3/uL Lymphocytes # (Auto) 1.8 1.0-4.0 10^3/uL Monocytes # (Auto) 0.6 0.0-1.0 10^3/uL Eosinophils # (Auto) 0.0 0.0-0.3 10^3/uL Basophils # (Auto) 0.0 0.0-0.1 10^3/uL Immature Granulocyte # (Auto) 0.1 0.0-0.1 10^3/uL Percent Immature Platelet Fraction 4.2 0.0-7.6 % Sodium Level 141 135-145 MMOL/L Potassium Level 3.8 3.6-5.0 MMOL/L Chloride Level 111 H 98-107 MMOL/L Carbon Dioxide Level 21 21-32 MMOL/L Anion Gap 9 5-14 MMOL/L Blood Urea Nitrogen 36 H 7-18 MG/DL Creatinine 1.03 0.60-1.30 MG/DL Estimat Glomerular Filtration Rate 57 BUN/Creatinine Ratio 35 Glucose Level 141 H 70-105 MG/DL Calcium Level 6.6 L 8.5-10.1 MG/DL Corrected Calcium 8.1 L 8.5-10.1 MG/DL Phosphorus Level 4.6 2.3-4.7 MG/DL Magnesium Level 1.3 L 1.6-2.4 MG/DL Total Bilirubin 0.9 0.1-1.0 MG/DL Aspartate Amino Transf (AST/SGOT) 12 5-34 U/L Alanine Aminotransferase (ALT/SGPT) 14 0-55 U/L Alkaline Phosphatase 32 L 40-136 U/L Total Protein 3.5 L 6.4-8.2 GM/DL Albumin 2.1 L 3.2-4.5 GM/DL Radiology ELECTROCARDIOGRAM (02/04/2022): Sinus rhythm with nonspecific intraventricular conduction delay, nonspecific inferior ST elevation and possible old anterior myocardial infarction. ELECTROCARDIOGRAM (12/29/2021): Sinus bradycardia at 57 bpm with first-degree AV block, low voltage in the precordial leads, incomplete right bundle branch block and poor R wave progression. ULTRASOUND VENOUS LOWER EXTREMITY BILATERAL (12/24/2021): 1. No evidence of venous thrombosis within the lower extremities. DIRECT-CURRENT CARDIOVERSION (12/23/2021): 1. Status post successful direct-current cardioversion with 1 synchronized biphasic shock at 100 J with conversion of atrial fibrillation to sinus bradycardia. ELECTROCARDIOGRAM (12/22/2021): Atrial fibrillation with a ventricular rate of 94 bpm with low voltage in the precordial leads and nonspecific intraventricular conduction delay with poor R wave progression. ELECTROCARDIOGRAM (12/07/2021): Atrial fibrillation with a ventricular rate of 85 bpm with nonspecific intraventricular conduction delay, possible old anterior myocardial infarction and nonspecific ST-T wave changes. QT interval 400 ms. ELECTROCARDIOGRAM (11/30/2021): Atrial fibrillation with a ventricular rate of 81 bpm with low voltage in the precordial leads, nonspecific intraventricular conduction delay and possible old anteroseptal myocardial infarction. ELECTROCARDIOGRAM (06/01/2021): Sinus rhythm with low voltage in the precordial leads and poor R wave progression. DIRECT-CURRENT CARDIOVERSION (05/06/2021): 1. Status post successful direct-current cardioversion for persistent atrial fibrillation with a final biphasic energy level of 100 J with successful conversion to sinus bradycardia. LABS (05/06/2021): TSH 1.85. Total cholesterol 166. Triglycerides 135. HDL 34. LDL 120. ELECTROCARDIOGRAM (04/21/2021): Atrial fibrillation with a ventricular rate of 73 bpm with low voltage in the precordial leads, poor R wave progression, nonspecific intraventricular conduction delay, and nonspecific ST-T wave changes. SLEEP STUDY (04/03/2021): 1. Obstructive sleep apnea-hypopnea syndrome-moderate. 2. Periodic limb movement disorder of sleep-mild. 3. Atrial fibrillation. LABS (03/07/2021): Hemoglobin 12.2. Platelets 276,000. Potassium 3.1. Creatinine 0.68. Liver function tests normal. Total cholesterol 197. LDL 152. HDL 30. Triglycerides 108. ELECTROCARDIOGRAM (03/05/2021): Atrial fibrillation with a ventricular rate of 86 bpm with nonspecific intraventricular conduction delay, poor R wave progression, and nonspecific ST-T wave changes. ECHOCARDIOGRAM (03/03/2021): 1. Normal left ventricular chamber size with mild concentric left ventricular hypertrophy. Normal left ventricular systolic function with an estimated ejection fraction of 55-65%. 2. Doppler parameters are consistent with grade 1 diastolic dysfunction. 3. The right ventricle is mildly dilated but with normal function. 4. The left atrium is mildly dilated. 5. There is mild mitral annular calcification. 6. There is mild aortic valve sclerosis. 7. The estimated pulmonary artery systolic pressure is 30-35 mmHg. ELECTROCARDIOGRAM (03/03/2021): Atrial fibrillation with a rapid ventricular rate at 111 bpm with poor R wave progression and nonspecific ST-T wave changes. CARDIAC CATHETERIZATION (06/30/2020): 1. No angiographically significant coronary artery disease. 2. Normal global left ventricular systolic function with ejection fraction of 60%. 3. Mild elevation of left ventricular end diastolic pressure. REGADENOSON NUCLEAR STRESS TEST (06/12/2020): 1. This study is suggestive of a small to moderate amount of anteroapical ischemia. 2. Normal regional wall motion. 3. Normal global left ventricular systolic function with a calculated ejection fraction of 75%. ECHOCARDIOGRAM (06/08/2020): 1. Normal left ventricular chamber size, wall thickness and systolic function with an estimated ejection fraction of 55-60%. 2. The left atrium is mildly dilated. 3. There is mild mitral annular calcification. There is mild mitral regurgitation. 4. Right ventricular systolic pressure is estimated to be approximately 30 mmHg. ELECTROCARDIOGRAM (03/09/2020): Sinus rhythm with poor R wave progression and nonspecific anterior T wave changes. ECG Impression ECG Comment Telemetry monitoring has shown sinus rhythm. Diagnosis/Problems Diagnosis/Problems (1) Persistent atrial fibrillation Assessment & Plan: She is currently in hypovolemic shock secondary to the gastrointestinal bleeding. As such, beta-esvin is on hold. Anticoagulation is also on hold for the same reason. I recommend resuming the flecainide when she can take oral medications. We will resume beta-esvin once the shock resolves. (2) Acute upper gastrointestinal hemorrhage Assessment & Plan: This is being managed by general surgery. (3) Hypovolemic shock Assessment & Plan: She has received 6 L of normal saline and 5 blood transfusions. She remains on a low-dose of norepinephrine infusion. I recommend decreasing the normal saline to 100 mL/h as I am concerned she will develop volume overload and pulmonary edema. General surgery is managing this condition otherwise. (4) Primary hypertension Assessment & Plan: All antihypertensive medication are on hold until she recovers from the shock. KAYLI WOODY JR, MD May 01, 2022 12:04
[2022-05-01] MEDS ORDERED: FUROSEMIDE 40 MG/4 ML INJ (LASIX) IVP ONE (13:00)
[2022-05-01] MEDS ORDERED: FUROSEMIDE 40 MG/4 ML INJ (LASIX) ONE (13:08)
--- NOTE | 2022-05-01 13:48 | Diagnostic Imaging Report ---
INDICATION: Shortness of breath. COMPARISON is made with prior exam of 04/30/2022 FINDINGS: The heart size is normal. There is a patchy right basilar and left perihilar infiltrate. No pleural effusion or pneumothorax. The mediastinum is unremarkable. Central venous catheter has its tip in the superior vena cava. IMPRESSION: Left perihilar and patchy right basal infiltrates suspect for pneumonia. Dictated by: Dictated on workstation # [id number]
--- NOTE | 2022-05-01 14:44 | OPERATIVE REPORT ---
DATE OF SERVICE: 05/01/2022 ADMITTING PHYSICIAN: Dr. Yusuf. PREOPERATIVE DIAGNOSIS: Upper gastrointestinal bleed. POSTOPERATIVE DIAGNOSES: Bleeding Rajat's ulcer within hiatal hernia. Type 1 sliding hiatal hernia approximately 3 cm in size. Extensive clotted blood within the stomach, severe gastritis. No duodenal ulcerations. PROCEDURE: EGD with hemostasis with hemostatic clip placement. SURGEON: Ricardo Valerio MD. ANESTHESIA: Monitored anesthesia care. ESTIMATED BLOOD LOSS: Minimal. FINDINGS: Bleeding Rajat's ulcer within hiatal hernia. Type 1 sliding hiatal hernia approximately 3 cm in size. Extensive clotted blood within the stomach, severe gastritis. No duodenal ulcerations. DISPOSITION: The patient tolerated the procedure well. INDICATIONS: The patient is a 71-year-old female who underwent a tongue biopsy approximately nine days ago. She had reported that this lesion was initially small; however, had grown larger in size, which she believes that this was due to teeth erosion and this caused irritation, which did cause the lesion to grew larger in size. She underwent excision of the lesion, which was found to be benign. Since that time, the lesion is visible and appears to be healing well with no bleeding. She did develop significant episodes of nausea and vomiting and hematemesis. She had a vasovagal episode on the floor and was also found to have loose dark stools. The patient was admitted to the ICU, started on Protonix drip as well as Carafate and continued resuscitation with blood; however, continued to have symptomatic bleeding with hematemesis as well as laboratory confirmation. She does not report any severe history of gastroesophageal reflux disease or peptic ulcer disease and states that she has occasional episodes and takes omeprazole on a p.r.n. basis. DESCRIPTION OF PROCEDURE: The patient stayed in the ICU under monitor and after adequate anesthesia and monitored anesthesia care, the mouthpiece was applied. The endoscope was then placed in the mouth, visualizing the pharynx and hypopharyngeal region. Vocal cords, epiglottis and vallecula identified and appeared to be normal. The endoscope was then gently intubated into the esophageal opening and esophagus insufflated. The endoscope was then advanced to the first, second, third portions of the esophagus. The GE junction was intrathoracic consistent with a hiatal hernia. There was no active bleeding around this area. The endoscope was then advanced into the stomach, visualizing a significant amount of blood clot within the stomach. This was irrigated and suctioned as well as possible; however, 100% of the clot could not be evacuated. There was a severe gastritis. The pylorus and duodenum appeared well with no apparent ulcerations or any active bleeding. Upon retroflexion of the endoscope, a Rajat's ulcer was identified within the reflux portion of the stomach. We then proceeded to place three clips along the ulcer and irritated mucosa with visualization of good hemostasis. The endoscope was then slowly withdrawn while taking a second look and suctioning of residual air as well as residual blood with no additional findings. The patient tolerated the procedure well. We will continue with medical management with a proton pump inhibitor drip, octreotide drip, continued monitoring of hemoglobin and hematocrit as well as resuscitation as necessary. She was also on anticoagulation before, and we will continue to hold that. At some point, she will need a followup EGD for further evaluation as well as biopsies. Job ID: [id number] DocumentID: [id number] Dictated Date: 05/01/2022 10:20:58 Painter Date: 05/01/2022 14:43:55 Dictated By: RICARDO VALERIO MD
[2022-05-01 15:00] LABS: HEMOGLOBIN 10.1 g/dL (11.5-16.0)
[2022-05-01] MEDS ORDERED: DexMEDEtomidine 250 ML DRIP 250 ML IV ONE (15:59)
[2022-05-01] MEDS: DexMEDEtomidine 250 ML DRIP 250 ML IV SCH (16:06)
[2022-05-01] MEDS: PANTOPRAZOLE INJECTION 200 MG in NS (IVPB) 100 ML IV SCH (16:29)
[2022-05-01] MEDS: FLECAINIDE 100 MG (TAMBOCOR) TAB PO SCH (20:20)
[2022-05-01 21:23] LABS: HEMOGLOBIN 9.1 g/dL (11.5-16.0)
--- NOTE | 2022-05-01 23:18 | Tele-ICU Progress Note ---
Progress Note Called by the nurse with U/O 25 ml/hr. 100 ml in 4 hrs. On Levophed and ON ivf 100 ml/hr. Will continue to watch, Pt already received Lasix in the morning. d/w the bedside nurse. Interventions Minor-Other: Low U/O Focused Exam Lactate Level 05/01/22 16:30: Lactic Acid Level 2.53*H 05/01/22 18:50: Lactic Acid Level 2.17*H 05/01/22 20:45: Lactic Acid Level 1.95 Height, Weight, BMI Height: 5'8.00" Weight: 282lbs. 0.0oz. [id number]; 35.60 BMI Method:Stated Lactic Acid Level Laboratory Tests Test 05/01/22 20:45 Lactic Acid Level 1.95 MMOL/L (0.50-2.00) ELA LOWERY MD May 01, 2022 23:18
[2022-05-02] VITALS (28 sets, daily range): BP systolic 96–173; BP diastolic 39–80
[2022-05-02] MEDS: DexMEDEtomidine 250 ML DRIP 250 ML IV SCH ×5 (02:23→07:46)
[2022-05-02] MEDS: NS IV 1000 ML 1,000 ML IV SCH ×3 (04:22→20:30)
[2022-05-02 04:39] LABS: BASOPHILS # (AUTO) 0.1 10^3/uL (0.0-0.1); BASOPHILS % (AUTO) 0 % (0-10); EOSINOPHILS % (AUTO) 0 % (0-10); HEMATOCRIT 21 % (35-52); HEMOGLOBIN 7.5 g/dL (11.5-16.0); LYMPHOCYTES # (AUTO) 2.2 10^3/uL (1.0-4.0); LYMPHOCYTES % (AUTO) 7 % (12-44); MEAN CORPUSCULAR HEMOGLOBIN 30 pg (25-34); MEAN CORPUSCULAR HGB CONC 36 g/dL (32-36); MEAN CORPUSCULAR VOLUME 84 fL (80-99); MEAN PLATELET VOLUME 10.4 fL (9.0-12.2); MONOCYTES % (AUTO) 3 % (0-12); NEUTROPHILS # (AUTO) 26.3 10^3/uL (1.8-7.8); NEUTROPHILS % (AUTO) 88 % (42-75); PLATELET COUNT 111 10^3/uL (130-400); WHITE BLOOD COUNT 29.8 10^3/uL (4.3-11.0)
[2022-05-02] MEDS: NS IV 500 ML 500 ML IV SCH ×2 (04:44→17:07)
[2022-05-02 04:49] LABS: POTASSIUM 3.9 MMOL/L (3.6-5.0)
[2022-05-02 04:52] LABS: TOTAL PROTEIN 3.6 GM/DL (6.4-8.2)
[2022-05-02 04:53] LABS: BILIRUBIN,TOTAL 0.6 MG/DL (0.1-1.0)
[2022-05-02 04:55] LABS: CREATININE SERUM 1.18 MG/DL (0.60-1.30); PHOSPHORUS 3.5 MG/DL (2.3-4.7)
[2022-05-02 04:58] LABS: MAGNESIUM 1.9 MG/DL (1.6-2.4)
[2022-05-02 05:07] LABS: BAND NEUTROPHILS 12 %; LYMPHOCYTES % (MANUAL) 11 %; MICROCYTOSIS MODERATE; MONOCYTES % (MANUAL) 1 %; NEUTROPHILS % (MANUAL) 76 %; POLYCHROMASIA SLIGHT
[2022-05-02 05:08] LABS: BURR CELLS SLIGHT; ELLIPT/OVALOCYTES SLIGHT; ROULEAUX SLIGHT
[2022-05-02] MEDS: MAGNESIUM 1 GM/100 ML IVPB 100 ML IV SCH (05:13)
[2022-05-02] MEDS: POTASSIUM CL 10MEQ/50ML IVPB 50 ML IV SCH (05:13)
[2022-05-02] MEDS: KCL 20 MEQ TAB (K-DUR) PO SCH (05:14)
[2022-05-02] MEDS: LIDOCAINE 2% VISCOUS 15 ML UDC PO PRN ×3 (06:26→17:07)
[2022-05-02] MEDS: OCTREOTIDE INJECTION 500 MCG in NS (IVPB) 99 ML IV SCH (06:54)
[2022-05-02] MEDS: DOCUSATE SODIUM 100 MG (COLACE) CAP PO SCH ×2 (08:41→20:31)
[2022-05-02] MEDS: SENNA W/DOCUSATE (SENOKOT S) TABLET PO SCH ×2 (08:41→20:32)
[2022-05-02] MEDS: SENNOSIDES 8.6 MG (SENOKOT) TAB PO SCH ×2 (08:41→20:32)
[2022-05-02] MEDS: FLECAINIDE 100 MG (TAMBOCOR) TAB PO SCH ×2 (08:42→20:31)
[2022-05-02] MEDS: NOREPINEPHRINE 8 MG/250 ML 250 ML IV SCH ×2 (08:42→22:33)
[2022-05-02] MEDS: SUCRALFATE 1 GM (CARAFATE) TAB PO SCH ×4 (08:42→20:31)
--- NOTE | 2022-05-02 08:58 | Tele-ICU Progress Note ---
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 0.0oz. 127.951062ge; 35.60 BMI Method:Stated Focused Exam Lactate Level 05/01/22 16:30: Lactic Acid Level 2.53*H 05/01/22 18:50: Lactic Acid Level 2.17*H 05/01/22 20:45: Lactic Acid Level 1.95 Exam Exam Patient acknowledged, consented, and participated in this virtual visit which was conducted using real time audio/video Vital Signs Date Time Temp Pulse Resp B/P (MAP) Pulse Ox O2 Delivery O2 Flow Rate FiO2 05/02/22 08:00 67 9 106/39 (61) 98 Nasal Cannula 1.00 05/02/22 08:00 93 Nasal Cannula 2.00 05/02/22 07:40 Nasal Cannula 1.00 05/02/22 07:00 76 15 103/42 (62) 98 Nasal Cannula 2.00 05/02/22 06:57 75 05/02/22 06:55 72 125/59 05/02/22 06:00 79 16 127/75 (92) 99 Nasal Cannula 2.00 05/02/22 05:00 60 21 153/72 (99) 100 Nasal Cannula 2.00 05/02/22 04:00 73 18 136/46 (76) 100 Nasal Cannula 2.00 05/02/22 04:00 93 Nasal Cannula 2.00 05/02/22 03:00 58 19 121/62 (81) 99 Nasal Cannula 2.00 05/02/22 02:47 93 Nasal Cannula 2.00 05/02/22 02:47 92 Nasal Cannula 2.00 05/02/22 02:30 69 23 96/41 (59) 100 Nasal Cannula 2.00 05/02/22 02:23 78 05/02/22 01:30 92 Nasal Cannula 2.00 05/02/22 01:00 70 20 134/43 (73) 100 NIV Bilevel 30.00 05/02/22 01:00 70 05/02/22 00:37 72 05/02/22 00:00 96 NIV Bilevel 30 05/02/22 00:00 36.2 05/02/22 00:00 76 21 116/57 (76) 100 NIV Bilevel 30.00 05/01/22 23:45 69 135/70 05/01/22 23:00 72 21 131/75 (93) 98 NIV Bilevel 30.00 05/01/22 22:39 36.4 NIV Bilevel 30.00 05/01/22 22:00 74 21 117/60 (79) 98 NIV Bilevel 40.00 05/01/22 21:47 74 21 99 30.00 05/01/22 21:00 71 127/78 (94) 99 NIV Bilevel 40.00 05/01/22 20:34 72 95/27 05/01/22 20:21 74 126/43 05/01/22 20:00 73 19 121/51 (74) 98 NIV Bilevel 40.00 05/01/22 20:00 95 NIV Bilevel 30 05/01/22 19:00 79 05/01/22 19:00 36.2 NIV Bilevel 40.00 05/01/22 19:00 79 16 113/68 (83) 100 NIV Bilevel 40.00 05/01/22 18:52 74 18 98 30.00 05/01/22 18:00 72 29 126/43 (70) 100 NIV Bilevel 40.00 05/01/22 17:00 75 18 104/43 (63) 100 NIV Bilevel 40.00 05/01/22 16:40 NIV Bilevel 40.00 05/01/22 16:39 36.4 05/01/22 16:38 96 NIV Bilevel 50 05/01/22 16:06 89 107/60 05/01/22 16:00 86 17 118/86 (97) 99 NIV Bilevel 50.00 05/01/22 15:00 89 22 107/60 (76) 97 NIV Bilevel 50.00 05/01/22 14:00 84 21 100/52 (68) 95 NIV Bilevel 70.00 05/01/22 13:59 NIV Bilevel 70.00 05/01/22 13:48 100 20 98 40.00 05/01/22 13:43 NIV Bilevel 40.00 05/01/22 13:00 77 21 136/65 (88) 95 OxyMask 12.00 05/01/22 12:50 OxyMask 12.00 05/01/22 12:42 76 05/01/22 12:00 92 Nasal Cannula 8.00 05/01/22 12:00 76 19 112/55 (74) 92 Nasal Cannula 8.00 05/01/22 11:54 Nasal Cannula 8.00 05/01/22 11:00 71 18 129/65 (86) 92 Nasal Cannula 10.00 05/01/22 10:00 73 17 101/50 (67) 95 Room Air 05/01/22 09:00 75 13 122/45 (70) 100 Room Air I & O 05/02/22 07:00 Intake Total 3470 ml Output Total 900 ml Balance 2570 ml Height & Weight Height: 5'8.00" Weight: 282lbs. 0.0oz. 127.806258qy; 35.60 BMI Method:Stated General Appearance: No Apparent Distress, WD/WN, Anxious, Chronically ill HEENT: PERRL/EOMI, Normal ENT Inspection, Pharynx Normal, Moist Mucous Membrane s Neck: Full Range of Motion, Normal Inspection, Non Tender Respiratory: Lungs Clear, Normal Breath Sounds, Decreased Breath Sounds Cardiovascular: Regular Rate, Rhythm Capillary Refill: Less Than 3 Seconds Gastrointestinal: normal bowel sounds, non tender, soft Extremity: Normal Capillary Refill, Normal Inspection, Normal Range of Motion, Non Tender, No Calf Tenderness, No Pedal Edema, Pedal Edema (+ 1 leg edema) Neurologic/Psychiatric: Alert, Oriented x3, No Motor/Sensory Deficits, Normal Mood/Affect Skin: Normal Color, Warm/Dry Lymphatic: No Adenopathy Results Lab Laboratory Tests 04/30/22 13:45 04/30/22 21:45 05/01/22 03:00 05/01/22 08:30 05/01/22 14:50 05/01/22 20:45 05/02/22 04:30 Assessment/Plan Assessment/Plan UGI bleed, may need more blood if Hb < 7 would transfuse, continue on IV PPI, would stop IV octreotide if does not have portal hypertension new CBC pending Critical Care: Critically Ill Patient Time spent with patient (mins): 35 JAY JAY ARRIOLA MD May 02, 2022 08:58
--- NOTE | 2022-05-02 09:33 | Cardiology Progress Note ---
Progress Note-Cardiology Events since last exam Date Seen by Provider: May 02, 2022 Time Seen by Provider: 09:32 Events since last exam I am following her for atrial fibrillation. She remains in the ICU. She is now on a liquid diet. She feels short of breath with activity but overall feels better than when she was admitted. She denies chest pain, palpitations, or syncope. She has mild ankle edema. Certain portions of this document may have been dictated utilizing voice recognition technology. Inherent to this technology, typographical and grammatical errors may exist. As much as I am diligent to identify and correct these mistakes, some errors may remain in the document. Vitals Last set of Vitals Signs Vital Signs 05/02/22 05/02/22 05/02/22 00:00 13:00 16:00 Temp 36.4 Pulse 87 Resp 17 B/P (MAP) 139/66 (90) Pulse Ox 98 O2 Delivery Nasal Cannula O2 Flow Rate 1.00 FiO2 30 Labs Labs Laboratory Tests 05/01/22 20:45 05/02/22 04:30 05/02/22 09:26 05/02/22 15:30 Exam Vital Signs Vital Signs Date Time Temp Pulse Resp B/P (MAP) Pulse Ox O2 Delivery O2 Flow Rate FiO2 05/02/22 16:00 87 17 139/66 (90) 98 Nasal Cannula 1.00 05/02/22 13:00 36.4 05/02/22 00:00 30 Physical Exam General: Alert. No acute distress. She is obese. Eye: No xanthelasma. HENT: Normocephalic. Neck: Jugular venous pressure does not appear elevated. Respiratory: Lungs are clear to auscultation. Respirations are non-labored. Breath sounds are equal. Symmetrical chest wall expansion. Cardiovascular: Normal rate. Regular rhythm. Distant S1/S2. No murmur. No gallop. 1+ bilateral pretibial edema. Gastrointestinal: Soft. Normal bowel sounds. Skin: Warm. Dry. Neurologic: Alert and oriented to person, place, time. Cranial nerves 3-11 grossly intact. Psychiatric: Cooperative. Appropriate mood & affect. Labs Laboratory Tests Test 05/01/22 18:50 05/01/22 20:45 05/02/22 04:30 05/02/22 09:26 Range/Units Lactic Acid Level 2.17 *H 1.95 0.50-2.00 MMOL/L Hemoglobin 9.1 L 7.5 L 6.4 *L 11.5-16.0 g/dL Hematocrit 26 L 21 L 18 *L 35-52 % White Blood Count 29.8 H 4.3-11.0 10^3/uL Red Blood Count 2.50 L 3.80-5.11 10^6/uL Mean Corpuscular Volume 84 80-99 fL Mean Corpuscular Hemoglobin 30 25-34 pg Mean Corpuscular Hemoglobin Concent 36 32-36 g/dL Red Cell Distribution Width 19.6 H 10.0-14.5 % Platelet Count 111 L 130-400 10^3/uL Mean Platelet Volume 10.4 9.0-12.2 fL Immature Granulocyte % (Auto) 1 % Neutrophils (%) (Auto) 88 H 42-75 % Lymphocytes (%) (Auto) 7 L 12-44 % Monocytes (%) (Auto) 3 0-12 % Eosinophils (%) (Auto) 0 0-10 % Basophils (%) (Auto) 0 0-10 % Neutrophils # (Auto) 26.3 H 1.8-7.8 10^3/uL Lymphocytes # (Auto) 2.2 1.0-4.0 10^3/uL Monocytes # (Auto) 1.0 0.0-1.0 10^3/uL Eosinophils # (Auto) 0.0 0.0-0.3 10^3/uL Basophils # (Auto) 0.1 0.0-0.1 10^3/uL Immature Granulocyte # (Auto) 0.3 H 0.0-0.1 10^3/uL Neutrophils % (Manual) 76 % Lymphocytes % (Manual) 11 % Monocytes % (Manual) 1 % Band Neutrophils 12 % Polychromasia SLIGHT Microcytosis MODERATE [place] Cells SLIGHT Elliptocytes SLIGHT Rouleau SLIGHT Sodium Level 139 135-145 MMOL/L Potassium Level 3.9 3.6-5.0 MMOL/L Chloride Level 110 H 98-107 MMOL/L Carbon Dioxide Level 18 L 21-32 MMOL/L Anion Gap 11 5-14 MMOL/L Blood Urea Nitrogen 42 H 7-18 MG/DL Creatinine 1.18 0.60-1.30 MG/DL Estimat Glomerular Filtration Rate 49 BUN/Creatinine Ratio 36 Glucose Level 131 H 70-105 MG/DL Calcium Level 7.0 L 8.5-10.1 MG/DL Corrected Calcium 8.6 8.5-10.1 MG/DL Phosphorus Level 3.5 2.3-4.7 MG/DL Magnesium Level 1.9 1.6-2.4 MG/DL Total Bilirubin 0.6 0.1-1.0 MG/DL Aspartate Amino Transf (AST/SGOT) 11 5-34 U/L Alanine Aminotransferase (ALT/SGPT) 13 0-55 U/L Alkaline Phosphatase 30 L 40-136 U/L Total Protein 3.6 L 6.4-8.2 GM/DL Albumin 2.0 L 3.2-4.5 GM/DL Procalcitonin 3.52 H <0.10 NG/ML Test 05/02/22 11:14 05/02/22 12:44 05/02/22 15:30 Range/Units Lactic Acid Level 1.03 0.50-2.00 MMOL/L Lab Scanned Report Transfusion Reaction Form [id number] Hemoglobin 7.1 L 11.5-16.0 g/dL Hematocrit 20 *L 35-52 % Diagnosis/Problems Diagnosis/Problems (1) Persistent atrial fibrillation Assessment & Plan: She remains in hypovolemic shock secondary to the javi rointestinal bleeding. Nursing is attempting to wean off vasopressors as such, beta-esvin is on hold. Anticoagulation is also on hold due to the gastrointestinal hemorrhaging. I recommend resuming the flecainide when she can take oral medications. We will resume beta-esvin once the shock resolves. When she has been cleared by surgery to resume anticoagulation, we can resume oral anticoagulation. (2) Acute upper gastrointestinal hemorrhage Assessment & Plan: This is being managed by general surgery. As above, oral anticoagulation is on hold. (3) Hypovolemic shock Assessment & Plan: She has received 6 L of normal saline and 5 blood transfusions. She remains on a low-dose of norepinephrine infusion. I decrease the normal saline to 100 mL/h as I am concerned she will develop volume overload and pulmonary edema. I did actually give her dose of intravenous furosemide on 05/01 because she became more short of breath. General surgery is managing this condition otherwise. (4) Primary hypertension Assessment & Plan: All antihypertensive medication are on hold until she recovers from the shock. KAYLI WOODY JR, MD May 02, 2022 09:33
[2022-05-02 09:55] LABS: HEMOGLOBIN 6.4 g/dL (11.5-16.0)
[2022-05-02] MEDS ORDERED: VANCOMYCIN INJECTION 1,000 MG in NS (IVPB) 250 ML IV SCH (10:00)
[2022-05-02] MEDS ORDERED: CEFEPIME INJECTION 2,000 MG in NS (IVPB) 50 ML IV SCH (10:00)
[2022-05-02] MEDS ORDERED: NEBI20TA6 PO (10:15)
[2022-05-02] MEDS ORDERED: APIX5TAB PO (10:15)
[2022-05-02] MEDS ORDERED: ACHD5005 PO (10:15)
--- NOTE | 2022-05-02 10:56 | Diagnostic Imaging Report ---
Indication: Elevated white blood cell count. Frontal chest obtained at 10:45 a.m. and compared with yesterday. The heart is mildly enlarged. There is some mild infiltrate in the left perihilar region and base with minimal infiltrate in the right base. There is no pneumothorax or pleural fluid. Central venous catheter is unchanged. IMPRESSION: Unchanged central vascular congestion and left perihilar and basilar infiltrate and mild right basilar infiltrate. Dictated by: Dictated on workstation # [id number]
[2022-05-02] MEDS ORDERED: CEFEPIME 1,000 MG/NS 50 ML IVPB IV SCH ×2 (11:00)
[2022-05-02] MEDS ORDERED: VANCOMYCIN 1,750 MG/NS 500 ML IVPB IV NR ×2 (11:00)
--- NOTE | 2022-05-02 11:32 | Progress Note - Hospitalist ---
GLORIA FRANKEL 05/02/22 1132: Subjective HPI/CC On Admission Date Seen by Provider: May 02, 2022 Time Seen by Provider: 10:00 Chief complaint: GI bleed with hypotension and hematemesis with melena Subjective/Events-last exam Hemoglobin decreased to 6.4 from 9.1 Chest X-Ray showed evidence of pneumonia WBC count elevated to 29.8 Blood pressure improved Review of Systems Pulmonary: No Dyspnea, No Cough, No Pleuritic Chest Pain, No Other Cardiovascular: No: Chest Pain, Palpitations, Orthopnea, Paroxysmal Noc. Dyspnea, Edema, Lt Headedness Gastrointestinal: Nausea (Complained of nausea last night. Improved this morning), Vomiting, Abdominal Pain (Pain to deep palpation of the RLQ), Other (Had a bowel movement this morning. She claimed it was dark) Focused Exam Lactate Level 05/01/22 18:50: Lactic Acid Level 2.17*H 05/01/22 20:45: Lactic Acid Level 1.95 05/02/22 11:14: Lactic Acid Level 1.03 Lactic Acid Level Laboratory Tests Test 05/02/22 11:14 Lactic Acid Level 1.03 MMOL/L (0.50-2.00) Objective Exam Vital Signs Vital Signs Date Time Temp Pulse Resp B/P (MAP) Pulse Ox O2 Delivery O2 Flow Rate FiO2 05/02/22 11:00 75 17 134/59 (84) 99 Nasal Cannula 1.00 05/02/22 10:35 36.4 05/02/22 00:00 30 Capillary Refill : Less Than 3 Seconds General Appearance: No Apparent Distress Respiratory: Chest Non Tender, Lungs Clear, Normal Breath Sounds, No Accessory Muscle Use, No Respiratory Distress Cardiovascular: Regular Rate, Rhythm, No Edema, No Gallop, No JVD, No Murmur Gastrointestinal: No Organomegaly, No Pulsatile Mass, Soft, Tenderness (Tenderness to deep palpation of RLQ), Other (Bowel movement this morning. Patient claimed it was dark) Results/Procedures Lab Laboratory Tests 05/01/22 14:50 05/01/22 20:45 05/02/22 04:30 05/02/22 09:26 Patient resulted labs reviewed. Assessment/Plan Assessment and Plan Assess & Plan/Chief Complaint Acute blood loss anemia RBC transfusion Repeat H+H one hour following end of transfusion Repeat Hgb Q4H Suspected pneumonia Repeat chest x-ray Draw blood culture Sputum culture Empiric antibiotic coverage with cefepime and vancomycin Clinical Quality Measures DVT/VTE Risk/Contraindication: Contraindications-Pharm: Other *list below* Other: ALANA Johnson DO 05/03/22 0531: Subjective Subjective/Events-last exam Pt receiving 8th unit of blood today Rechecking chest x-ray Infiltrate possible, checking procalcitonin and covering with Cefepime and Vancomycin for facility acquired pneumonia Maintain on pressor therapy Review of Systems General: Fatigue, Malaise Objective Exam General Appearance: No Apparent Distress, Chronically ill Respiratory: No Accessory Muscle Use, No Respiratory Distress, Decreased Breath Sounds Cardiovascular: Regular Rate, Rhythm Neurologic/Psychiatric: Alert, Oriented x3 Assessment/Plan Assessment and Plan Assess & Plan/Chief Complaint Transfuse 8th unit IV abx empirically EGD today repeat Supervisory-Addendum Brief Verification & Attestation Participated in pt care: history, MDM, physical Personally performed: exam, history, MDM, supervision of care Care discussed with: Medical Student Procedures: n/a Results interpretation: Verified all documentation Verification and Attestation of Medical Student E/M Service A medical student performed and documented this service in my presence. I reviewed and verified all information documented by the medical student and made modifications to such information, when appropriate. I personally performed the physical exam and medical decision making. Alana Yusuf, May 03, 2022,05:29 GLORIA FRANKEL May 02, 2022 11:32 ALANA YUSUF DO May 03, 2022 05:31
[2022-05-02] MEDS: CEFEPIME 1,000 MG/NS 50 ML IVPB IV SCH ×4 (13:15→21:09)
[2022-05-02] MEDS ORDERED: EPINEPHrine INJECTION 1 MG/ML AMP ONE (13:51)
[2022-05-02] MEDS ORDERED: proPOfol 200 MG/20 ML (DIPRIVAN) VIAL IV ONE (14:45)
[2022-05-02] MEDS ORDERED: KETAMINE 50 MG/5 ML SYRINGE ONE (14:45)
[2022-05-02] MEDS: HURRICAINE EXT TUBE (BENZOCAINE) XX PRN (14:51)
--- NOTE | 2022-05-02 15:26 | Progress Note-Post Operative ---
Post-Operative Progess Note Surgeon (s)/Paint Formulator (s) Surgeon RICARDO VALERIO MD Paint Formulator: none Pre-Operative Diagnosis recurrent upper GI bleed Post-Operative Diagnosis previous clips at [facility] ulcer intact, to active bleed throughout esophagus stomach or duodenum. Procedure & Operative Findings Date of Procedure 05/02/22 Procedure Performed/Findings EGD with bx. Anesthesia Type mac Estimated Blood Loss Estimated blood loss (mL): minimal Specimens/Packing Specimens Removed antrum RICARDO VALERIO MD May 02, 2022 15:26
--- NOTE | 2022-05-02 15:34 | Anesthesia-General Post-Op ---
MAC Patient Condition Mental Status/LOC: Same as Preop Cardiovascular: Satisfactory Nausea/Vomiting: Absent Respiratory: Satisfactory Pain: Controlled Complications: Absent Post Op Complications Complications None Follow Up Care/Instructions Patient Instructions None needed. Anesthesiology Discharge Order Discharge Order Patient is doing well, no complaints, stable vital signs, no apparent adverse anesthesia problems. No complications reported per nursing. RODRIGO CERDA CRNA May 02, 2022 15:34
[2022-05-02 15:43] LABS: HEMOGLOBIN 7.1 g/dL (11.5-16.0)
--- NOTE | 2022-05-02 15:56 | OPERATIVE REPORT ---
DATE OF SERVICE: 05/02/2022 ADMITTING PHYSICIAN: Dr. Yusuf. PREOPERATIVE DIAGNOSIS: Recurrent upper gastrointestinal bleed. POSTOPERATIVE DIAGNOSES: Previous clips at Rajat's ulcer intact. No active bleeding. There was no clotted or fresh blood within the stomach, pylorus nor duodenum. The previous area along the posterolateral greater curvature that was covered by blood clot was not visualized with no ulcerations or any active bleeding. PROCEDURE: EGD with biopsy. SURGEON: Ricardo Valerio MD. ANESTHESIA: Monitored anesthesia care. ESTIMATED BLOOD LOSS: Minimal. FINDINGS: Previous Rajat's ulcers within 3 intact previous clips. No active bleeding. Type 3 hiatal hernia approximately 3 to 4 cm in size. No old clotted or any fresh blood within the esophagus, stomach, duodenum. Moderate gastritis. No formal ulcerations. No other lesions identified. DISPOSITION: The patient tolerated the procedure well. INDICATIONS: The patient is a 71-year-old female who underwent a tongue biopsy approximately 10 days ago. She had reported that the lesion was initially small; however, had grown larger in size and she believes this was due to teeth erosion, which caused irritation and caused the lesion to grow larger in size. She underwent excision of the lesion, which was found to be benign. Since that time, the lesion along the tongue, the excision site along the lesion of the tongue was visible and appears to be healing well with no bleeding. She did develop significant episodes of nausea and vomiting and hematemesis. She had a vasovagal episode on the floor and also did have dark loose stool and the patient was admitted to the ICU and started on medical therapy with IV crystalloid, Protonix drip, Carafate as well as colloids. The patient continued to have symptomatic bleeding with hematemesis as well as laboratory confirmation. In short, she underwent an EGD on 05/01/2022 and was found to have a bleeding Rajat's ulcer within the hiatal hernia. There was a significant size hiatal hernia as well as extensive amounts of clotted blood within the stomach. She underwent a clipping of the Rajat's ulcer with good hemostasis. The patient continued to have clinical bleeding, with two episodes of a maroon liquidy stool. Her laboratory work also showed a significant drop in her hemoglobin from 10.1 and then eventually to 6.4 this morning. DESCRIPTION OF PROCEDURE: The patient retained in the ICU under monitor. After adequate IV pain and sedative medications and monitored anesthesia care, the mouthpiece was applied. The endoscope was placed in the mouth, visualizing the pharynx and hypopharyngeal region. Vocal cords, epiglottis and vallecula identified and appeared to be normal. The endoscope was then gently intubated into the esophageal opening and esophagus insufflated. The endoscope was then advanced to the first, second and third portion of esophagus at the level of GE junction. Reflux esophagitis, Gila grade B identified. The GE junction was also intrathoracic consistent with a hiatal hernia. The previously placed clips were also identified and intact and no active bleeding. The endoscope was then advanced in the stomach and endoscope retroflexed again visualizing the hiatal hernia. This was initially thought to be a type 1 hiatal hernia; however, upon further examination, it appears to be more of a moderate sized type 3 hiatal hernia, 3 to 4 cm in size. Again the clips intact with no active bleeding. The previous clotted blood within the posterolateral portion of the stomach along the greater curvature posterolateral was gone and there were no ulcerations or bleeding identified. There was no old clotted blood as well as no fresh blood within the esophagus, stomach nor duodenum to indicate any upper gastrointestinal bleeding. The severe gastritis that was also noted has improved to a moderate gastritis. A biopsy was taken of the antrum to rule out H. pylori. The endoscope was then advanced to the pylorus and the first and second portion of the duodenum with no ulcerations or any active bleeding identified as well as no old or fresh blood. The endoscope was then slowly withdrawn while taking a second look and suctioning of residual air with no additional findings. The patient tolerated the procedure well. We are unsure of the etiology of the rectal bleeding, which may have been due to previous bleeding going through the gastrointestinal tract causing her to have the episodes of loose dark stools. We will recheck her blood levels; however, she continues to have lower gastrointestinal bleeding. This would warrant further investigation with a colonoscopy, which we would proceed with. If this did not yield anything, we will then recommend a tagged RBC scan for possible small bowel source. Job ID: [id number] DocumentID: [id number] Dictated Date: 05/02/2022 15:35:11 List Of First Job Ideas Date: 05/02/2022 15:56:20 Dictated By: RICARDO VALERIO MD [facility]
[2022-05-02] MEDS ORDERED: HURRICAINE EXT TUBE (BENZOCAINE) XX PRN (16:00)
[2022-05-02] MEDS: PANTOPRAZOLE INJECTION 200 MG in NS (IVPB) 100 ML IV SCH (17:07)
--- NOTE | 2022-05-02 18:24 | Physician Query Clarification ---
Physician Query-General Query to Physician: The medical record reflects the following clinical evidence: Clinical Indicators: Chest X-ray 05/01/2022 "infiltrates suspect for pneumonia" WBC up to 29.8, Temp 35.4 to 36.0 since admission, No cough, requiring 02 at 2L since admission and as high as 70%, RR consistently 20 and above, Risk Factor(s): Recent surgical procedures, Advanced age Treatment: cefepime and vancomycin IV, Chest Xray follow ups, 1. Pneumonia, unspecified organism 2. Other explanation of clinical findings 3. Unable to determine (no explanation for clinical findings) Please clarify and document your clinical opinion in the progress notes and discharge summary including the definitive and/or presumptive diagnosis, (suspected or probable), related to the above clinical findings. Please include clinical findings supporting your diagnosis. Dejah Castillo RN, MSN Clinical Aoc Director Combat Operations Officer [phone] [email or web address] PHYSICIAN RESPONSE: Based on the clinical findings in the record, please respond to the query above on this document as an addendum. Physician Response: Physician Response Pneumonia If you have questions please contact: Warranty Administrator: Ext: Thank you for your time and cooperation. Clinical Aoc Director Combat Operations Officer/Warranty Administrator This is a permanent part of the medical record DEJAH CASTILLO May 02, 2022 18:24 PRIYANKA CASILLAS DO May 02, 2022 20:34
[2022-05-02 21:37] LABS: HEMOGLOBIN 6.3 g/dL (11.5-16.0)
[2022-05-03] VITALS (28 sets, daily range): BP systolic 110–164; BP diastolic 51–75
[2022-05-03] MEDS ORDERED: FUROSEMIDE 40 MG/4 ML INJ (LASIX) ONE (00:41)
[2022-05-03] MEDS ORDERED: FUROSEMIDE 40 MG/4 ML INJ (LASIX) IVP ONE (00:45)
[2022-05-03 02:12] LABS: BASOPHILS % (AUTO) 0 % (0-10)
[2022-05-03 02:14] LABS: EOSINOPHILS # (AUTO) 0.1 10^3/uL (0.0-0.3); EOSINOPHILS % (AUTO) 1 % (0-10); HEMATOCRIT 23 % (35-52); LYMPHOCYTES % (AUTO) 6 % (12-44); MEAN CORPUSCULAR HEMOGLOBIN 29 pg (25-34); MEAN CORPUSCULAR HGB CONC 35 g/dL (32-36); MEAN CORPUSCULAR VOLUME 84 fL (80-99); MEAN PLATELET VOLUME 10.4 fL (9.0-12.2); MONOCYTES # (AUTO) 0.6 10^3/uL (0.0-1.0); MONOCYTES % (AUTO) 4 % (0-12); NEUTROPHILS # (AUTO) 13.4 10^3/uL (1.8-7.8); NEUTROPHILS % (AUTO) 87 % (42-75); PLATELET COUNT 86 10^3/uL (130-400); WHITE BLOOD COUNT 15.3 10^3/uL (4.3-11.0)
[2022-05-03 02:25] LABS: ALBUMIN 2.1 GM/DL (3.2-4.5); POTASSIUM 3.2 MMOL/L (3.6-5.0)
[2022-05-03 02:26] LABS: CALCIUM 7.6 MG/DL (8.5-10.1)
[2022-05-03 02:29] LABS: BILIRUBIN,TOTAL 0.9 MG/DL (0.1-1.0)
[2022-05-03 02:31] LABS: CREATININE SERUM 0.68 MG/DL (0.60-1.30); PHOSPHORUS 1.7 MG/DL (2.3-4.7)
[2022-05-03 02:34] LABS: MAGNESIUM 1.7 MG/DL (1.6-2.4)
[2022-05-03] MEDS: POTASSIUM CL 10MEQ/50ML IVPB 50 ML IV SCH ×5 (03:38→05:14)
[2022-05-03] MEDS: MAGNESIUM 1 GM/100 ML IVPB 100 ML IV SCH ×2 (03:39→05:05)
[2022-05-03] MEDS: KCL 20 MEQ TAB (K-DUR) PO SCH (05:05)
[2022-05-03] MEDS: NS IV 1000 ML 1,000 ML IV SCH (05:13)
[2022-05-03] MEDS: CEFEPIME 1,000 MG/NS 50 ML IVPB IV SCH ×6 (05:31→17:16)
[2022-05-03] MEDS: DOCUSATE SODIUM 100 MG (COLACE) CAP PO SCH ×2 (07:29→21:02)
[2022-05-03] MEDS: SENNA W/DOCUSATE (SENOKOT S) TABLET PO SCH ×2 (07:29→21:02)
[2022-05-03] MEDS: SENNOSIDES 8.6 MG (SENOKOT) TAB PO SCH ×2 (07:29→21:02)
[2022-05-03] MEDS: SUCRALFATE 1 GM (CARAFATE) TAB PO SCH ×4 (07:29→21:02)
[2022-05-03] MEDS: NOREPINEPHRINE 8 MG/250 ML 250 ML IV SCH ×2 (07:30→22:13)
[2022-05-03] MEDS: FLECAINIDE 100 MG (TAMBOCOR) TAB PO SCH ×2 (08:27→21:02)
--- NOTE | 2022-05-03 09:38 | Tele-ICU Progress Note ---
Subjective Date Seen by a Provider: May 03, 2022 Time Seen by a Provider: 09:00 Subjective/Events-last exam This virtual visit was conducted using real time audio/video. Thank you for asking us to see this patient for UGIB. Developed HCAP. Rajat ulcer found on EGD 05/01/22. Recent events: Decreasing Hb. For colonoscopy this AM. Recd 2 more Units PRBCs. PE: Obese. VSS. O2 sat 100% on 2 LPM NC. HEENT: No obvious masses, adenopathy or JVD. Chest: clear to auscultation. Diminished. CV: RRR S1 S2 No murmur or added sounds. Abd: Non-tender. Bowel sounds Y. : Unremarkable. External cath. LOCATION WORKER/psychiatric: Grossly intact. No obvious focal findings. Extremities: 1+ edema. Capillary refill < 3 seconds. Skin: unremarkable. Results: Elevated WCC 15.3, BUN 21, BG 109 . Decreased Hb 8.0 K 3.2. CXR: patchy B infilts. Available chart/ vitals / labs / images reviewed. Video assessment done using teleICU camera, rest of exam as per RN. A/P: Critical Care: critically ill patient. Cont. IVF, PPI, Sucralfate, abx, flecanide. Monitor O2 sats/need for NIV or intubation. Discussed with BRET Landrum. Asked RN to reach out to eICU if any questions or concerns later. Time spent with patient/coordination of care with other health professionals (mins): 30 Sepsis Event Evaluation Height, Weight, BMI Height: 5'8.00" Weight: 282lbs. 0.0oz. 127.552123bz; 35.60 BMI Method:Stated Focused Exam Lactate Level 05/01/22 18:50: Lactic Acid Level 2.17*H 05/01/22 20:45: Lactic Acid Level 1.95 05/02/22 11:14: Lactic Acid Level 1.03 Exam Exam Patient acknowledged, consented, and participated in this virtual visit which was conducted using real time audio/video Vital Signs Date Time Temp Pulse Resp B/P (MAP) Pulse Ox O2 Delivery O2 Flow Rate FiO2 05/03/22 09:00 67 23 133/59 (83) 99 Nasal Cannula 2.00 05/03/22 08:36 94 Room Air 05/03/22 08:00 94 Room Air 05/03/22 08:00 68 24 141/66 (91) 100 Nasal Cannula 2.00 05/03/22 07:32 77 05/03/22 07:00 73 25 143/64 (90) 100 Nasal Cannula 2.00 05/03/22 06:20 36.2 76 22 130/64 98 Nasal Cannula 2.00 05/03/22 06:00 70 28 139/62 (87) 98 Nasal Cannula 2.00 05/03/22 05:00 80 19 144/55 (84) 98 Nasal Cannula 2.00 05/03/22 04:00 71 28 135/61 (85) 100 Nasal Cannula 2.00 05/03/22 03:51 36.4 69 20 130/55 97 Nasal Cannula 2.00 05/03/22 03:50 36.4 Nasal Cannula 2.00 05/03/22 03:49 97 Nasal Cannula 2.00 05/03/22 03:35 36.4 84 18 132/60 98 Nasal Cannula 2.00 05/03/22 03:00 74 22 142/51 (81) 100 Nasal Cannula 1.00 05/03/22 02:00 87 24 144/55 (84) 100 Nasal Cannula 1.00 05/03/22 01:00 84 24 135/57 (83) 100 Nasal Cannula 1.00 05/03/22 01:00 84 05/03/22 00:46 36.4 81 22 134/54 98 Nasal Cannula 2.00 05/03/22 00:28 98 Nasal Cannula 2.00 05/03/22 00:00 84 25 110/62 (78) 100 Nasal Cannula 1.00 05/02/22 23:00 84 13 102/53 (69) 100 Nasal Cannula 1.00 05/02/22 22:42 36.0 82 18 119/47 100 Nasal Cannula 2.00 05/02/22 22:31 36.1 Nasal Cannula 1.00 05/02/22 22:24 36.1 88 20 123/49 100 Nasal Cannula 2.00 05/02/22 22:15 81 17 108/51 (70) 100 Nasal Cannula 1.00 05/02/22 21:00 87 22 124/51 (75) 99 Nasal Cannula 1.00 05/02/22 20:00 97 Nasal Cannula 2.00 05/02/22 20:00 84 19 141/56 (84) 100 Nasal Cannula 1.00 05/02/22 19:00 70 24 121/55 (77) 100 Nasal Cannula 1.00 05/02/22 19:00 70 05/02/22 19:00 Nasal Cannula 1.00 05/02/22 18:00 78 28 137/64 (88) 100 Nasal Cannula 1.00 05/02/22 17:00 90 19 114/43 (66) 93 Nasal Cannula 1.00 05/02/22 16:00 87 17 139/66 (90) 98 Nasal Cannula 1.00 05/02/22 15:48 96 Nasal Cannula 2.00 05/02/22 15:00 83 19 173/72 (105) 100 Nasal Cannula 1.00 05/02/22 14:00 82 20 144/76 (98) 100 Nasal Cannula 1.00 05/02/22 13:19 80 05/02/22 13:00 74 19 124/64 (84) 99 Nasal Cannula 1.00 05/02/22 13:00 36.4 72 20 136/63 99 Nasal Cannula 2.00 05/02/22 12:56 70 05/02/22 12:00 93 Nasal Cannula 2.00 05/02/22 12:00 84 17 133/60 (84) 100 Nasal Cannula 1.00 05/02/22 12:00 36.5 05/02/22 11:00 75 17 134/59 (84) 99 Nasal Cannula 1.00 05/02/22 10:35 36.4 74 20 120/52 98 Nasal Cannula 2.00 05/02/22 10:16 36.5 71 20 99/66 98 Nasal Cannula 2.00 05/02/22 10:00 68 16 140/46 (77) 99 Nasal Cannula 1.00 I & O 05/03/22 07:00 Intake Total 3750 ml Output Total 7975 ml Balance -4225 ml Height & Weight Height: 5'8.00" Weight: 282lbs. 0.0oz. 127.565461sv; 35.60 BMI Method:Stated General Appearance: No Apparent Distress, Chronically ill HEENT: PERRL/EOMI, Normal ENT Inspection, Pharynx Normal, Moist Mucous Membranes Neck: Full Range of Motion, Normal Inspection, Non Tender Respiratory: No Accessory Muscle Use, No Respiratory Distress, Decreased Breath Sounds Cardiovascular: Regular Rate, Rhythm Capillary Refill: Less Than 3 Seconds Gastrointestinal: normal bowel sounds, non tender, soft Extremity: Normal Capillary Refill, Normal Inspection, Normal Range of Motion, Non Tender, No Calf Tenderness, No Pedal Edema, Pedal Edema (+ 1 leg edema) Neurologic/Psychiatric: Alert, Oriented x3 Skin: Normal Color, Warm/Dry Lymphatic: No Adenopathy Results Lab Laboratory Tests 05/01/22 14:50 05/01/22 20:45 05/02/22 04:30 05/02/22 09:26 05/02/22 15:30 05/02/22 20:40 05/03/22 02:00 Assessment/Plan Assessment/Plan See free text Critical Care: Critically Ill Patient SHWETA SALOMON MD May 03, 2022 09:38
[2022-05-03] MEDS: NS IV 500 ML 500 ML IV SCH (09:42)
[2022-05-03 09:49] LABS: HEMOGLOBIN 8.7 g/dL (11.5-16.0)
[2022-05-03] MEDS ORDERED: VANCOMYCIN 1500 MG/NS 500 ML IVPB IV SCH ×2 (10:00)
--- NOTE | 2022-05-03 12:50 | Progress Note - Hospitalist ---
GLORIA FRANKEL 05/03/22 1250: Subjective HPI/CC On Admission Chief complaint: GI bleed with hypotension and hematemesis with melena Subjective/Events-last exam Repeat EGD on 05/02 No evidence of Upper GI bleed Evidence of Hiatal hernia Received 3 units of RBC (10 total to date) Hgb improved from 6.3 to 8.7 WBC count improved from 29.8 to 15.3 Currently giving cefepime and vanco Potassium decreased from 3.9 to 3.2 Review of Systems Pulmonary: No Dyspnea, No Cough, No Pleuritic Chest Pain, No Other Cardiovascular: No: Chest Pain, Palpitations, Orthopnea, Paroxysmal Noc. Dy spnea, Edema, Lt Headedness Gastrointestinal: No: Nausea, Vomiting, Abdominal Pain, Diarrhea, Constipation, Hematochezia Focused Exam Lactate Level 05/01/22 18:50: Lactic Acid Level 2.17*H 05/01/22 20:45: Lactic Acid Level 1.95 05/02/22 11:14: Lactic Acid Level 1.03 Objective Exam Vital Signs Vital Signs Date Time Temp Pulse Resp B/P (MAP) Pulse Ox O2 Delivery O2 Flow Rate FiO2 05/03/22 12:00 69 19 139/75 (96) 100 Nasal Cannula 2.00 05/03/22 06:20 36.2 05/02/22 00:00 30 Capillary Refill : Less Than 3 Seconds General Appearance: No Apparent Distress Respiratory: Chest Non Tender, No Accessory Muscle Use, No Respiratory Distress Cardiovascular: Regular Rate, Rhythm, No Edema, No Gallop, No JVD, No Murmur, Normal Peripheral Pulses Gastrointestinal: Normal Bowel Sounds Results/Procedures Lab Laboratory Tests 05/02/22 15:30 05/02/22 20:40 05/03/22 02:00 05/03/22 09:30 Patient resulted labs reviewed. Assessment/Plan Assessment and Plan Assess & Plan/Chief Complaint GI Bleed Hgb improved to 8.7 following RBC transfusion Colonoscopy scheduled 05/03/22 to rule out lower GI bleed Repeat hgb tomorrow morning Suspected pneumonia Meets SIRS criteria for possible sepsis WBC improved from 29.8 to 15.3 Antibiotic coverage with cefepime and vancomycin Hypokalemia KCl 50ml @ 50ml/hr Clinical Quality Measures DVT/VTE Risk/Contraindication: Contraindications-Pharm: Other *list below* Other: ALANA Johnson DO 05/04/22 0528: Subjective HPI/CC On Admission Date Seen by Provider: May 03, 2022 Time Seen by Provider: 10:00 Subjective/Events-last exam Patient has received 10 units of blood It appears that the bleeding has stopped given the amount of days since last taking oral anticoagulation Assessment/Plan Assessment and Plan Assess & Plan/Chief Complaint Colonoscopy Transfer to fourth floor if possible Supervisory-Addendum Brief Verification & Attestation Participated in pt care: history, MDM, physical Personally performed: exam, history, MDM, supervision of care Care discussed with: Medical Student Procedures: n/a Results interpretation: Verified all documentation Verification and Attestation of Medical Student E/M Service A medical student performed and documented this service in my presence. I reviewed and verified all information documented by the medical student and made modifications to such information, when appropriate. I personally performed the physical exam and medical decision making. Alana Yusuf, May 04, 2022,05:27 GLORIA FRANKEL May 03, 2022 12:50 ALANA YUSUF DO May 04, 2022 05:28
[2022-05-03] MEDS: PANTOPRAZOLE INJECTION 200 MG in NS (IVPB) 100 ML IV SCH (15:16)
--- NOTE | 2022-05-03 15:37 | Progress Note ---
Subjective Date Seen by a Provider: May 03, 2022 Time Seen by a Provider: 15:00 Subjective/Events-last exam doing better. no dark stools today. hb stable since 2 units PRBC given last night at 8.7 Focused Exam Lactate Level 05/01/22 18:50: Lactic Acid Level 2.17*H 05/01/22 20:45: Lactic Acid Level 1.95 05/02/22 11:14: Lactic Acid Level 1.03 Objective Exam Vital Signs Date Time Temp Pulse Resp B/P (MAP) Pulse Ox O2 Delivery O2 Flow Rate FiO2 05/03/22 15:17 97 Nasal Cannula 2.00 05/03/22 15:00 66 96 145/72 (96) 100 Room Air 05/03/22 14:00 68 26 159/70 (99) 100 Room Air 05/03/22 13:00 67 23 153/70 (97) 100 Room Air 05/03/22 12:52 67 05/03/22 12:47 35.3 05/03/22 12:00 69 19 139/75 (96) 100 Room Air 05/03/22 12:00 97 Nasal Cannula 2.00 05/03/22 11:00 73 21 137/65 (89) 97 Room Air 05/03/22 10:00 66 20 143/60 (87) 100 Room Air 05/03/22 09:00 67 23 133/59 (83) 99 Room Air 05/03/22 08:36 94 Room Air 05/03/22 08:00 94 Room Air 05/03/22 08:00 68 24 141/66 (91) 100 Nasal Cannula 2.00 05/03/22 07:32 77 05/03/22 07:00 73 25 143/64 (90) 100 Nasal Cannula 2.00 05/03/22 06:20 36.2 76 22 130/64 98 Nasal Cannula 2.00 05/03/22 06:00 70 28 139/62 (87) 98 Nasal Cannula 2.00 05/03/22 05:00 80 19 144/55 (84) 98 Nasal Cannula 2.00 05/03/22 04:00 71 28 135/61 (85) 100 Nasal Cannula 2.00 05/03/22 03:51 36.4 69 20 130/55 97 Nasal Cannula 2.00 05/03/22 03:50 36.4 Nasal Cannula 2.00 05/03/22 03:49 97 Nasal Cannula 2.00 05/03/22 03:35 36.4 84 18 132/60 98 Nasal Cannula 2.00 05/03/22 03:00 74 22 142/51 (81) 100 Nasal Cannula 1.00 05/03/22 02:00 87 24 144/55 (84) 100 Nasal Cannula 1.00 05/03/22 01:00 84 24 135/57 (83) 100 Nasal Cannula 1.00 05/03/22 01:00 84 05/03/22 00:46 36.4 81 22 134/54 98 Nasal Cannula 2.00 05/03/22 00:28 98 Nasal Cannula 2.00 05/03/22 00:00 84 25 110/62 (78) 100 Nasal Cannula 1.00 05/02/22 23:00 84 13 102/53 (69) 100 Nasal Cannula 1.00 05/02/22 22:42 36.0 82 18 119/47 100 Nasal Cannula 2.00 05/02/22 22:31 36.1 Nasal Cannula 1.00 05/02/22 22:24 36.1 88 20 123/49 100 Nasal Cannula 2.00 05/02/22 22:15 81 17 108/51 (70) 100 Nasal Cannula 1.00 05/02/22 21:00 87 22 124/51 (75) 99 Nasal Cannula 1.00 05/02/22 20:00 97 Nasal Cannula 2.00 05/02/22 20:00 84 19 141/56 (84) 100 Nasal Cannula 1.00 05/02/22 19:00 70 24 121/55 (77) 100 Nasal Cannula 1.00 05/02/22 19:00 70 05/02/22 19:00 Nasal Cannula 1.00 05/02/22 18:00 78 28 137/64 (88) 100 Nasal Cannula 1.00 05/02/22 17:00 90 19 114/43 (66) 93 Nasal Cannula 1.00 05/02/22 16:00 87 17 139/66 (90) 98 Nasal Cannula 1.00 05/02/22 15:48 96 Nasal Cannula 2.00 I & O 05/03/22 07:00 Intake Total 3750 ml Output Total 7975 ml Balance -4225 ml Capillary Refill : Less Than 3 Seconds General Appearance: No Apparent Distress HEENT: PERRL/EOMI Neck: Full Range of Motion Respiratory: Chest Non Tender Cardiovascular: Regular Rate, Rhythm Gastrointestinal: normal bowel sounds, non tender, soft Extremity: Normal Capillary Refill Neurologic/Psychiatric: Alert, Oriented x3 Skin: Normal Color Lymphatic: No Adenopathy Results Lab Laboratory Tests 05/02/22 20:40: Hemoglobin 6.3*L, Hematocrit 18*L 05/03/22 02:00: Hemoglobin 8.0#L, Hematocrit 23L, White Blood Count 15.3H, Red Blood Count 2.72L , Mean Corpuscular Volume 84, Mean Corpuscular Hemoglobin 29, Mean Corpuscular Hemoglobin Concent 35, Red Cell Distribution Width 18.0H, Platelet Count 86L, Mean Platelet Volume 10.4, Immature Granulocyte % (Auto) 2, Neutrophils (%) (Auto) 87H, Lymphocytes (%) (Auto) 6L, Monocytes (%) (Auto) 4, Eosinophils (%) (Auto) 1, Basophils (%) (Auto) 0, Neutrophils # (Auto) 13.4H, Lymphocytes # (Auto) 1.0, Monocytes # (Auto) 0.6, Eosinophils # (Auto) 0.1, Basophils # (Auto) 0.0, Immature Granulocyte # (Auto) 0.3H, Percent Immature Platelet Fraction 4.9, Sodium Level 137, Potassium Level 3.2L, Chloride Level 109H, Carbon Dioxide Level 23, Anion Gap 5, Blood Urea Nitrogen 21H, Creatinine 0.68, Estimat Glomerular Filtration Rate 92, BUN/Creatinine Ratio 31, Glucose Level 109H, Calcium Level 7.6L, Corrected Calcium 9.1, Phosphorus Level 1.7L, Magnesium Level 1.7, Total Bilirubin 0.9, Aspartate Amino Transf (AST/SGOT) 15, Alanine Aminotransferase (ALT/SGPT) 14, Alkaline Phosphatase 44, Total Protein 4.0L, Albumin 2.1L 05/03/22 09:30: Hemoglobin 8.7L, Hematocrit 25L Microbiology 05/02/22 Blood Culture - Final, Complete No growth Assessment/Plan Assessment/Plan Assess & Plan/Chief Complaint UGIB secondary gertrudis ulcer s/p EGD and clipping. clinical bleeding decreasing and hb stabilizing. will chnge H/H to q 12 and start diet. Clinical Quality Measures DVT/VTE Risk/Contraindication: Contraindications-Pharm: Other *list below* Other: RICARDO Cazares MD May 03, 2022 15:37
--- NOTE | 2022-05-03 16:14 | Cardiology Progress Note ---
Progress Note-Cardiology Events since last exam Date Seen by Provider: May 03, 2022 Time Seen by Provider: 16:10 Events since last exam She remains in the intensive care unit. She has been weaned off Levophed inf usion. I am following her due to her history of persistent atrial fibrillation now with an upper gastrointestinal hemorrhage. She has received 12 L of normal saline and 10 blood transfusions. Her hemoglobin seems to be stabilizing. This all appears to have been caused by a gastric ulcer. Oral anticoagulation has been on hold. She is now on a clear liquid diet. She does have some tightness in her chest when she takes a deep breath. This makes her feel short of breath. She denies palpitations or syncope. She has mild bilateral lower extremity edema. Certain portions of this document may have been dictated utilizing voice recognition technology. Inherent to this technology, typographical and grammatical errors may exist. As much as I am diligent to identify and correct these mistakes, some errors may remain in the document. Vitals Last set of Vitals Signs Vital Signs 05/02/22 05/03/22 05/03/22 05/03/22 00:00 15:00 15:17 15:46 Temp 35.7 Pulse 66 Resp 96 B/P (MAP) 145/72 (96) Pulse Ox 97 O2 Delivery Nasal Cannula O2 Flow Rate 2.00 FiO2 30 Labs Labs Laboratory Tests 05/02/22 20:40 05/03/22 02:00 05/03/22 09:30 Exam Vital Signs Vital Signs Date Time Temp Pulse Resp B/P (MAP) Pulse Ox O2 Delivery O2 Flow Rate FiO2 05/03/22 15:46 35.7 05/03/22 15:17 97 Nasal Cannula 2.00 05/03/22 15:00 66 96 145/72 (96) 05/02/22 00:00 30 Physical Exam General: Alert. No acute distress. She is obese. Eye: No xanthelasma. HENT: Normocephalic. Neck: Jugular venous pressure does not appear elevated. Respiratory: Lungs are clear to auscultation. Respirations are non-labored. Breath sounds are equal. Symmetrical chest wall expansion. Cardiovascular: Normal rate. Regular rhythm. Distant S1/S2. No murmur. No gallop. Trace bilateral pretibial edema. Gastrointestinal: Soft. Normal bowel sounds. Skin: Warm. Dry. Neurologic: Alert and oriented to person, place, time. Cranial nerves 3-11 grossly intact. Psychiatric: Cooperative. Appropriate mood & affect. Labs Laboratory Tests Test 05/02/22 20:40 05/03/22 02:00 05/03/22 09:30 Range/Units Hemoglobin 6.3 *L 8.0 #L 8.7 L 11.5-16.0 g/dL Hematocrit 18 *L 23 L 25 L 35-52 % White Blood Count 15.3 H 4.3-11.0 10^3/uL Red Blood Count 2.72 L 3.80-5.11 10^6/uL Mean Corpuscular Volume 84 80-99 fL Mean Corpuscular Hemoglobin 29 25-34 pg Mean Corpuscular Hemoglobin Concent 35 32-36 g/dL Red Cell Distribution Width 18.0 H 10.0-14.5 % Platelet Count 86 L 130-400 10^3/uL Mean Platelet Volume 10.4 9.0-12.2 fL Immature Granulocyte % (Auto) 2 % Neutrophils (%) (Auto) 87 H 42-75 % Lymphocytes (%) (Auto) 6 L 12-44 % Monocytes (%) (Auto) 4 0-12 % Eosinophils (%) (Auto) 1 0-10 % Basophils (%) (Auto) 0 0-10 % Neutrophils # (Auto) 13.4 H 1.8-7.8 10^3/uL Lymphocytes # (Auto) 1.0 1.0-4.0 10^3/uL Monocytes # (Auto) 0.6 0.0-1.0 10^3/uL Eosinophils # (Auto) 0.1 0.0-0.3 10^3/uL Basophils # (Auto) 0.0 0.0-0.1 10^3/uL Immature Granulocyte # (Auto) 0.3 H 0.0-0.1 10^3/uL Percent Immature Platelet Fraction 4.9 0.0-7.6 % Sodium Level 137 135-145 MMOL/L Potassium Level 3.2 L 3.6-5.0 MMOL/L Chloride Level 109 H 98-107 MMOL/L Carbon Dioxide Level 23 21-32 MMOL/L Anion Gap 5 5-14 MMOL/L Blood Urea Nitrogen 21 H 7-18 MG/DL Creatinine 0.68 0.60-1.30 MG/DL Estimat Glomerular Filtration Rate 92 BUN/Creatinine Ratio 31 Glucose Level 109 H 70-105 MG/DL Calcium Level 7.6 L 8.5-10.1 MG/DL Corrected Calcium 9.1 8.5-10.1 MG/DL Phosphorus Level 1.7 L 2.3-4.7 MG/DL Magnesium Level 1.7 1.6-2.4 MG/DL Total Bilirubin 0.9 0.1-1.0 MG/DL Aspartate Amino Transf (AST/SGOT) 15 5-34 U/L Alanine Aminotransferase (ALT/SGPT) 14 0-55 U/L Alkaline Phosphatase 44 40-136 U/L Total Protein 4.0 L 6.4-8.2 GM/DL Albumin 2.1 L 3.2-4.5 GM/DL Diagnosis/Problems Diagnosis/Problems (1) Persistent atrial fibrillation Assessment & Plan: She has been remaining in sinus rhythm. I did restart her flecainide. Anticoagulation is still on hold due to the gastrointestinal hemorrhaging. If her blood pressure remains acceptable overnight, I will plan to restart beta-esvin which she was taking at home. When she has been cleared by surgery to resume anticoagulation, we can resume oral anticoagulation. (2) Acute upper gastrointestinal hemorrhage Assessment & Plan: This is being managed by general surgery. As above, oral anticoagulation is on hold. (3) Hypovolemic shock Assessment & Plan: This has now resolved. I will stop the intravenous fluids. (4) Primary hypertension Assessment & Plan: As above, I will attempt to resume beta-esvin as long as she remains normotensive off vasopressor medication. KAYLI WOODY JR, MD May 03, 2022 16:14
[2022-05-03] MEDS ORDERED: FUROSEMIDE 40 MG/4 ML INJ (LASIX) IVP NR (16:45)
[2022-05-03 20:33] LABS: HEMOGLOBIN 8.7 g/dL (11.5-16.0)
[2022-05-03] MEDS: ACETAMINOPHEN 325 MG TABLET PO PRN (21:02)
[2022-05-04] VITALS (17 sets, daily range): BP systolic 123–187; BP diastolic 62–85
[2022-05-04] MEDS: NS IV 500 ML 500 ML IV SCH (00:07)
[2022-05-04] MEDS: CEFEPIME 1,000 MG/NS 50 ML IVPB IV SCH ×10 (00:07→23:46)
[2022-05-04 04:30] LABS: HEMATOCRIT 25 % (35-52); HEMOGLOBIN 8.6 g/dL (11.5-16.0); MEAN CORPUSCULAR HEMOGLOBIN 30 pg (25-34); MEAN CORPUSCULAR HGB CONC 35 g/dL (32-36); MEAN CORPUSCULAR VOLUME 85 fL (80-99)
[2022-05-04 04:32] LABS: BASOPHILS % (AUTO) 0 % (0-10); EOSINOPHILS # (AUTO) 0.1 10^3/uL (0.0-0.3); EOSINOPHILS % (AUTO) 1 % (0-10); LYMPHOCYTES # (AUTO) 0.8 10^3/uL (1.0-4.0); LYMPHOCYTES % (AUTO) 6 % (12-44); MEAN PLATELET VOLUME 10.1 fL (9.0-12.2); MONOCYTES # (AUTO) 0.7 10^3/uL (0.0-1.0); MONOCYTES % (AUTO) 5 % (0-12); NEUTROPHILS # (AUTO) 10.7 10^3/uL (1.8-7.8); NEUTROPHILS % (AUTO) 86 % (42-75); PLATELET COUNT 100 10^3/uL (130-400); WHITE BLOOD COUNT 12.6 10^3/uL (4.3-11.0)
[2022-05-04 04:43] LABS: ALBUMIN 2.2 GM/DL (3.2-4.5)
[2022-05-04 04:45] LABS: CALCIUM 7.8 MG/DL (8.5-10.1)
[2022-05-04 04:46] LABS: TOTAL PROTEIN 4.4 GM/DL (6.4-8.2)
[2022-05-04 04:48] LABS: BILIRUBIN,TOTAL 0.9 MG/DL (0.1-1.0)
[2022-05-04 04:49] LABS: CREATININE SERUM 0.56 MG/DL (0.60-1.30); PHOSPHORUS 2.4 MG/DL (2.3-4.7)
[2022-05-04 04:52] LABS: MAGNESIUM 1.6 MG/DL (1.6-2.4)
[2022-05-04] MEDS: MAGNESIUM 1 GM/100 ML IVPB 100 ML IV SCH ×2 (05:00→05:10)
[2022-05-04] MEDS ORDERED: POTASSIUM CL 10MEQ/50ML IVPB 50 ML IV ONE (05:00)
[2022-05-04] MEDS: POTASSIUM CL 10MEQ/50ML IVPB 50 ML IV SCH ×6 (05:00→08:11)
[2022-05-04] MEDS: KCL 20 MEQ TAB (K-DUR) PO SCH (05:00)
[2022-05-04] MEDS: SUCRALFATE 1 GM (CARAFATE) TAB PO SCH ×4 (08:11→21:09)
[2022-05-04] MEDS: SENNA W/DOCUSATE (SENOKOT S) TABLET PO SCH ×2 (08:11→19:45)
[2022-05-04] MEDS: FLECAINIDE 100 MG (TAMBOCOR) TAB PO SCH ×2 (08:11→21:09)
[2022-05-04] MEDS: SENNOSIDES 8.6 MG (SENOKOT) TAB PO SCH ×2 (08:11→19:45)
[2022-05-04] MEDS: DOCUSATE SODIUM 100 MG (COLACE) CAP PO SCH ×2 (08:11→19:44)
--- NOTE | 2022-05-04 08:54 | Tele-ICU Progress Note ---
Subjective Date Seen by a Provider: May 04, 2022 Time Seen by a Provider: 08:51 Subjective/Events-last exam Not actively bleeding, Hb 8.6, remains on IV PPI, BP ok Potassium 3.2, has been replaced Sepsis Event Evaluation Height, Weight, BMI Height: 5'8.00" Weight: 282lbs. 0.0oz. 127.990222aj; 35.60 BMI Method:Stated Focused Exam Lactate Level 05/01/22 18:50: Lactic Acid Level 2.17*H 05/01/22 20:45: Lactic Acid Level 1.95 05/02/22 11:14: Lactic Acid Level 1.03 Exam Exam Patient acknowledged, consented, and participated in this virtual visit which was conducted using real time audio/video Vital Signs Date Time Temp Pulse Resp B/P (MAP) Pulse Ox O2 Delivery O2 Flow Rate FiO2 05/04/22 08:00 36.0 05/04/22 08:00 74 17 160/74 (102) 96 Nasal Cannula 2.00 05/04/22 07:56 74 05/04/22 07:00 75 17 156/68 (97) 97 Nasal Cannula 2.00 05/04/22 06:14 Nasal Cannula 2.00 05/04/22 06:00 80 28 149/65 (93) 95 Nasal Cannula 2.00 05/04/22 05:00 68 15 157/72 (100) 100 Nasal Cannula 2.00 05/04/22 04:00 36.2 05/04/22 04:00 66 22 162/72 (102) 100 Nasal Cannula 2.00 05/04/22 04:00 95 Nasal Cannula 2.00 05/04/22 03:12 36.3 Nasal Cannula 2.00 05/04/22 03:00 66 22 154/75 (101) 100 Nasal Cannula 2.00 05/04/22 02:00 66 21 164/70 (101) 100 Nasal Cannula 2.00 05/04/22 01:30 67 16 123/85 (98) 100 Nasal Cannula 2.00 05/04/22 01:25 66 05/04/22 01:00 65 28 154/70 (98) 100 Nasal Cannula 2.00 05/04/22 00:02 94 Nasal Cannula 2.00 05/04/22 00:00 65 25 144/63 (90) 100 Nasal Cannula 2.00 05/03/22 23:50 37.2 05/03/22 23:00 69 28 128/52 (77) 94 Nasal Cannula 2.00 05/03/22 22:59 36.0 Nasal Cannula 2.00 05/03/22 22:00 72 28 128/52 (77) 94 Room Air 05/03/22 21:00 71 28 164/68 (100) 94 Room Air 05/03/22 20:23 96 Room Air 05/03/22 20:00 62 25 153/66 (95) 100 Room Air 05/03/22 19:52 36.2 05/03/22 19:00 66 18 159/73 (101) 100 Room Air 05/03/22 19:00 Room Air 05/03/22 19:00 60 05/03/22 18:00 69 27 148/65 (92) 99 Room Air 05/03/22 17:00 70 28 148/61 (90) 98 Room Air 05/03/22 16:00 66 25 143/60 (87) 100 Room Air 05/03/22 15:46 35.7 05/03/22 15:17 97 Nasal Cannula 2.00 05/03/22 15:00 66 26 145/72 (96) 100 Room Air 05/03/22 14:00 68 26 159/70 (99) 100 Room Air 05/03/22 13:00 67 23 153/70 (97) 100 Room Air 05/03/22 12:52 67 05/03/22 12:47 35.3 05/03/22 12:00 69 19 139/75 (96) 100 Room Air 05/03/22 12:00 97 Nasal Cannula 2.00 05/03/22 11:00 73 21 137/65 (89) 97 Room Air 05/03/22 10:00 66 20 143/60 (87) 100 Room Air 05/03/22 09:00 67 23 133/59 (83) 99 Room Air I & O0 05/04/22 07:00 Intake Total 3010 ml Output Total 6650 ml Balance -3640 ml Height & Weight Height: 5'8.00" Weight: 282lbs. 0.0oz. 127.758731cs; 35.60 BMI Method:Stated General Appearance: No Apparent Distress HEENT: PERRL/EOMI Neck: Full Range of Motion Respiratory: Chest Non Tender, Decreased Breath Sounds Cardiovascular: Regular Rate, Rhythm Capillary Refill: Less Than 3 Seconds Gastrointestinal: normal bowel sounds, non tender, soft Extremity: Normal Capillary Refill Neurologic/Psychiatric: Alert, Oriented x3 Skin: Normal Color Lymphatic: No Adenopathy Results Lab Laboratory Tests 05/02/22 09:26 05/02/22 15:30 05/02/22 20:40 05/03/22 02:00 05/03/22 09:30 05/03/22 20:20 05/04/22 04:20 Assessment/Plan Assessment/Plan Will continue to monitor Hb, watch for bleeding but trend is toward improvement Critical Care: Critically Ill Patient Time spent with patient (mins): 30 JAY JAY ARRIOLA MD May 04, 2022 08:54
[2022-05-04] MEDS ORDERED: TROUGH ORDER-PHARMACY XX ONE (09:00)
[2022-05-04] MEDS: PANTOPRAZOLE 40 MG (PROTONIX) TAB PO SCH ×2 (10:24→17:50)
[2022-05-04] MEDS ORDERED: VANCOMYCIN 2000 MG/NS 500 ML IVPB IV NR ×2 (10:30)
--- NOTE | 2022-05-04 10:47 | Physical Therapy Evaluation ---
PT Evaluation-General Medical Diagnosis Admission Date Apr 30, 2022 at 03:10 Medical Diagnosis: GI bleed, hypotension Onset Date: May 11, 2022 Therapy Diagnosis Therapy Diagnosis: impaired mobility, strength, endurance Height/Weight Height (Feet): 5 Height (Inches): 8.00 Weight (Pounds): 282 Weight (Ounces): 0.0 Precautions Precautions/Isolations: Standard Precautions Referral Physician: Alana Yusuf DO Reason for Referral: Evaluation/Treatment Medical History Pertinent Medical History: Diverticulitis Additional Medical History Past Medical History 1. Hypertension 2. Diverticulitis 3. Hiatal Hernia 4. Depression 5. Multiple admissions for diverticulitis 6. Recurrent admissions for nausea/vomiting and diverticulitis 7. Lobulated Uterus seen on CT consistent with Fibroids 7-14 8. Obesity Past Surgical History 1. Ovarian Cystectomy 2. Cholecystectomy 3. ERCP with bile duct stent- Dr. Wagner 4. EGD/Colonoscopies- most recent 2010 with Quinonez demonstrating multiple diverticulosis Reviewed History: Yes Social History Current Living Status: Alone Entry Into Home: Stairs Without Railing PT Steps Into Home: 1 Prior Prior Level of Function SCALE: Activities may be completed with or without assistive devices. 1-Ubtktejozh-mlxovdl completes the activity by him/herself with no assistance from a helper. 5-Set-up or Clean-up Assistance-helper sets up or cleans up; patient completes activity. Louise assists only prior to or following the activity. 4-Supervision or Touching Assistance-helper provides verbal cues and/or touching/steadying and/or contact guard assistance as patient completes activity. Assistance may be provided throughout the activity or intermittently. 3-Partial/Moderate Assistance-helper does LESS THAN HALF the effort. Louise lifts, holds or supports trunk or limbs, but provides less than half the effort. 2-Substantial/Maximal Assistance-helper does MORE THAN HALF the effort. Louise lifts or holds trunk or limbs and provides more than half the effort. 1-Uobrwbydc-nxygxa does ALL the effort. Patient does none of the effort to complete the activity. Or, the assistance of 2 or more helpers is required for the patient to complete the activity. If activity was not attempted, code reason: 7-Patient Refused. 9-Not Applicable-not attempted and the patient did not perform the activity before the current illness, exacerbation or injury. 10-Not Attempted due to Environmental Limitations-(lack of equipment, weather restraints, etc.). 88-Not Attempted due to Medical Conditions or Safety Concerns. Bed Mobility: 6 Transfers (B,C,W/C): 6 Gait: 6 Stairs: 6 Indoor Mobility (Ambulation): Independent Stairs: Independent PT Evaluation-Current Subjective Patient in recliner pre tx, agrees to PT, has no complaints of pain at rest. Pt/Family Goals to be independent at home Objective Patient Orientation: Person, Place, Situation Attachments: Rene Catheter ROM/Strength ROM Lower Extremities WNL Strength Lower Extremities LLE (hip flexion 3/5, knee flexion 4/5, knee extension 4/5, dorsiflexion 4/5), RLE (hip flexion 3/5, knee flexion 4/5, knee extension 4/5, dorsiflexion 4/5) Sensory Vision: Functional Hearing: Functional Sensation Right Lower Extremit: Intact Sensation Left Lower Extremity: Intact Transfers Sit to Stand (QC): 4 Chair/Lni-cf-Cabpt Xfer(QC): 4 Gait Does the Patient Walk?: Yes Mode of Locomotion: Walk Anticipated Mode of Locomotion: Walk Walk 10 feet (QC): 4 Distance: 20' Gait Assistive Device: FWW Comments/Gait Description Patient only ambulates about 10 feet before saying she can't walk any more, turns around and heads back to the recliner. Gait was slow but steady. Her O2 was 87% after getting back to the recliner, gets back up to 92% after about 20 seconds Balance Sitting Static: Normal Sitting Dynamic: Normal Standing Static: Good Standing Dynamic: Good Treatment BLE seated exercises x20 (AP, LAQ) Assessment/Needs Patient in recliner post tx with nurse call, phone, tray, all needs met. Patient has impaired mobility, strength, endurance, O2 drops with minimal activity. Rehab Potential: Fair PT Mcc Goals Mcc Goals PT Java Core Developer Goals Time Frame: May 11, 2022 Roll Left & Right (QC): 6 Sit to Lying (QC): 6 Lying-Sitting on Side/Bed(QC): 6 Sit to Stand (QC): 4 (SBA) Chair/Cot-fj-Saelh Xfer(QC): 4 (SBA) Walk 10 feet (QC): 4 (SBA) Walk 50ft with 2 Turns (QC): 4 (SBA) Walk 150 ft (QC): 4 (SBA) PT Plan Problem List Problem List: Activity Tolerance, Functional Strength, Safety, Balance, Gait, Transfer, Bed Mobility, ROM Treatment/Plan Treatment Plan: Continue Plan of Care Treatment Plan: Bed Mobility, Education, Functional Activity Darrell, Functional Strength, Gait, Safety, Therapeutic Exercise, Transfers Treatment Duration: May 11, 2022 Frequency: 6 times per week Estimated Hrs Per Day: .25 hour per day Patient and/or Family Agrees t: Yes Safety Risks/Education Patient Education: Gait Training, Transfer Techniques, Correct Positioning, Safety Issues Teaching Recipient: Patient Teaching Methods: Demonstration, Discussion Response to Teaching: Reinforcement Needed Discharge Recommendations Plan Patient will perform bed mobility and transfer training, balance and endurance training, functional strengthening, stair training, gait training, and education, to improve functional mobility and independence at home. Therapy Discharge Recommendati: Scheduled Assistance, Home & Family, Post Acute PT Time/GCodes Time In: 1006 Time Out: 1020 Total Billed Treatment Time: 14 Total Billed Treatment 1 visit LENKA JONES PT May 04, 2022 10:47
--- NOTE | 2022-05-04 11:29 | Progress Note - Hospitalist ---
GLORIA FRANKEL 05/04/22 1129: Subjective HPI/CC On Admission Date Seen by Provider: May 04, 2022 Time Seen by Provider: 09:15 Chief complaint: GI bleed with hypotension and hematemesis with melena Subjective/Events-last exam Patient doing better Hgb stabilizing Potassium remains low Move to 4th floor today Orders in for rehab Review of Systems Pulmonary: No Dyspnea, No Cough, No Pleuritic Chest Pain, No Other Cardiovascular: No: Chest Pain, Palpitations, Orthopnea, Paroxysmal Noc. Dyspnea, Edema, Lt Headedness Gastrointestinal: No: Nausea, Vomiting, Abdominal Pain Genitourinary: Other (Catheter still in place) Focused Exam Lactate Level 05/01/22 18:50: Lactic Acid Level 2.17*H 05/01/22 20:45: Lactic Acid Level 1.95 05/02/22 11:14: Lactic Acid Level 1.03 Objective Exam Vital Signs Vital Signs Date Time Temp Pulse Resp B/P (MAP) Pulse Ox O2 Delivery O2 Flow Rate FiO2 05/04/22 10:00 73 25 145/62 (89) 94 Nasal Cannula 2.00 05/04/22 08:00 36.0 05/02/22 00:00 30 Capillary Refill : Less Than 3 Seconds General Appearance: No Apparent Distress Respiratory: Lungs Clear, Normal Breath Sounds, No Accessory Muscle Use, No Respiratory Distress, Other (Claimed she intermitently has chest tightness that makes it hard to take a deep breath) Cardiovascular: Regular Rate, Rhythm, No Edema, No Gallop, No JVD, No Murmur, Normal Peripheral Pulses Results/Procedures Lab Laboratory Tests 05/03/22 20:20 05/04/22 04:20 Patient resulted labs reviewed. Assessment/Plan Assessment and Plan Assess & Plan/Chief Complaint GI Bleed Hgb consistent at 8.6 today (05/04) Colonoscopy cancelled because hemoglobin stabilized Monitor hgb with morning labs Suspected pneumonia Blood cultures negative WBC improved from 15.3 to 12.6 Antibiotic coverage with cefepime and vancomycin for another day Vanco trough was 4 Adjusting dose to 1,500mg IV Q12H Hypokalemia Potassium level 3.0 Give KCl 50ml @ 50ml/hr IV Discontinue lasix Monitor BP Recheck with morning labs Leave catheter in for another day Move to 4th floor Rehab orders placed Clinical Quality Measures DVT/VTE Risk/Contraindication: Contraindications-Pharm: Other *list below* Other: ALANA Johnson DO 05/04/222053: Assessment/Plan Assessment and Plan Assess & Plan/Chief Complaint DC Vanc Move to floor s/p 10 units of blood Supervisory-Addendum Brief Verification & Attestation Participated in pt care: history, MDM, physical Personally performed: exam, history, MDM, supervision of care Care discussed with: Medical Student Procedures: n/a Results interpretation: Verified all documentation Verification and Attestation of Medical Student E/M Service A medical student performed and documented this service in my presence. I reviewed and verified all information documented by the medical student and made modifications to such information, when appropriate. I personally performed the physical exam and medical decision making. Alana Yusuf, May 04, 2022,20:53 GLORIA FRANKEL May 04, 2022 11:29 ALANA YUSUF DO May 04, 2022 20:54
--- NOTE | 2022-05-04 12:00 | Occupational Therapy Eval ---
OT Evaluation-General/PLF Medical Diagnosis Admission Date Apr 30, 2022 at 03:10 Medical Diagnosis: GI bleed, hypotension Onset Date: May 11, 2022 Therapy Diagnosis Therapy Diagnosis: decreased ADL status and weakness Height/Weight Height (Feet): 5 Height (Inches): 8.00 Weight (Pounds): 282 Weight (Ounces): 0.0 Precautions Precautions/Isolations: Standard Precautions Referral Physician: Alana Yusuf DO Referral Reason: Evaluation/Treatment Medical History Pertinent Medical History: Diverticulitis Additional Medical History Sleep apnea, HTN, Afib, chronic UTI, GERD, diverticulitis, anxiety and depression, psoriasis, and hiatal hernia. Current History EMS to ED for GI bleed, hematemesis with melena, and mild hypotension. Social History Current Living Status: Alone Entry Into Home: Stairs Without Railing Steps Into Home: 1 ADL-Prior Level of Function SCALE: Activities may be completed with or without assistive devices. 0-Hiupvzzuzl-qtzqsrz completes the activity by him/herself with no assistance from a helper. 5-Set-up or Clean-up Assistance-helper sets up or cleans up; patient completes activity. Lewis assists only prior to or following the activity. 4-Supervision or Touching Assistance-helper provides verbal cues and/or touching/steadying and/or contact guard assistance as patient completes activity. Assistance may be provided throughout the activity or intermittently. 3-Partial/Moderate Assistance-helper does LESS THAN HALF the effort. Lewis lifts, holds or supports trunk or limbs, but provides less than half the effort. 2-Substantial/Maximal Assistance-helper does MORE THAN HALF the effort. Lewis lifts or holds trunk or limbs and provides more than half the effort. 5-Gkupbeiji-uxglcf does ALL the effort. Patient does none of the effort to complete the activity. Or, the assistance of 2 or more helpers is required for the patient to complete the activity. If activity was not attempted, code reason: 7-Patient Refused. 9-Not Applicable-not attempted and the patient did not perform the activity before the current illness, exacerbation or injury. 10-Not Attempted due to Environmental Limitations-(lack of equipment, weather restraints, etc.). 88-Not Attempted due to Medical Conditions or Safety Concerns. ADL PLOF Comments Pt reports being IND with ADLs, IADLs, and functional mobility at PLOF. She reports being very active, working/volunteering at several places and going to the gym 3x/wk to ride the seated bike. Pt said she is "very, very careful" during her ADLs to prevent any falls. She places a towel down in the shower to cover the slippery surface. She has issues with L knee mobility, so she threads LLE first during LBD. Self Care: Independent Functional Cognition: Independent DME/Equipment: Grab Bars, Tub/Shower Drive Self: Yes OT Current Status Subjective Pt sitting in recliner upon OT arrival, agreeable to tx. Pt reports no pain at the moment. Mental Status/Objective Patient Orientation: Person, Place, Situation Attachments: Rene Catheter, Telemetry Current Upper Extremity ROM bilaterally WFL Upper Extremity Strength ~3+/5 bilaterally ADL-Treatment Eating (QC): 6 (per nursing report) Lower Body Dressing (QC): 4 (CGA per clinical judgement) On/Off Footwear (QC): 4 (SBA for balance when leaning forward) Toileting Hygiene (QC): 4 (per clinical judgement) Other Treatments Pt provided information about PLOF and living condition, participated in BUE screen, and demonstrated footwear while sitting in recliner. Pt was educated about the purpose and benefit of skilled OT services to increase IND in ADLs, pt verbalized understanding. Pt declined any further ADLs at this time. She was agreeable to perform functional mobility, standing from recliner with CGA. She walked ~10' with FWW and CGA before requesting to return to recliner d/t fatigue. O2 saturation 87% after returning to recliner, returns to 92% after ~20 seconds. Post tx, pt left in recliner with call light in reach and all needs met. Education OT Patient Education: Disease process, Energy conservation, Exercise program, Modified ADL techniques, Progress toward Goal/Update tx plan, Purpose of tx/functional activities, Rehab process, Safety issues Teaching Recipient: Patient Teaching Methods: Discussion Response to Teaching: Verbalize Understanding OT Usp Goals Button Tufter Goals Time Frame: May 27, 2022 Eating (QC): 6 Oral Hygiene (QC): 6 Toileting Hygiene (QC): 6 Upper Body Dressing (QC): 6 Lower Body Dressing (QC): 6 On/Off Footwear (QC): 6 Additional Goals: 1-Demonstrate ADL Tasks, 2-Verbalize Understanding, 3-ImproveStrength/Darrell 1=Demonstrate adherence to instructed precautions during ADL tasks. 2=Patient will verbalize/demonstrate understanding of assistive devices/modifications for ADL. 3=Patient will improve strength/tolerance for activity to enable patient to perform ADL's. OT Education/Plan Problem List/Assessment Assessment: Decreased Activ Tolerance, Decreased UE Strength, Impaired I ADL's, Impaired Self-Care Skills Pt would benefit from skilled OT services to increase her BUE strength and endurance, activity tolerance, and functional balance in order to increase IND in ADLs so she can return to the least restrictive environment. Discharge Recommendations Plan/Recommendations: Continue POC Equpiment Recommendations-D/C: Extended Bath Bench Treatment Plan/Plan of Care Patient would benefit from OT for education, treatment and training to promote independence in ADL's, mobility, safety and/or upper extremity function for ADL's. Plan of Care: ADL Retraining, Functional Mobility, UE Funct Exercise/Act Treatment Duration: May 27, 2022 Frequency: 3 times per week (3-5x/wk) Estimated Hrs Per Day: .25 hour per day Rehab Potential: Fair Time/GCodes Start Time: 10:06 Stop Time: 10:21 Total Time Billed (hr/min): 15 Billed Treatment Time HUEY Weber ADDISON OT May 04, 2022 12:00
--- NOTE | 2022-05-04 13:30 | Progress Note ---
Subjective Date Seen by a Provider: May 04, 2022 Time Seen by a Provider: 13:00 Subjective/Events-last exam doing better. no rectal bleed. hb stable. tolerating diet. HD stable Focused Exam Lactate Level 05/01/22 18:50: Lactic Acid Level 2.17*H 05/01/22 20:45: Lactic Acid Level 1.95 05/02/22 11:14: Lactic Acid Level 1.03 Objective Exam Vital Signs Date Time Temp Pulse Resp B/P (MAP) Pulse Ox O2 Delivery O2 Flow Rate FiO2 05/04/22 11:50 71 05/04/22 11:27 97 Nasal Cannula 2.00 05/04/22 11:00 71 22 151/69 (96) 92 Nasal Cannula 2.00 05/04/22 10:00 73 25 145/62 (89) 94 Nasal Cannula 2.00 05/04/22 09:00 74 26 151/62 (91) 94 Nasal Cannula 2.00 05/04/22 08:00 36.0 05/04/22 08:00 97 Nasal Cannula 2.00 05/04/22 08:00 74 17 160/74 (102) 96 Nasal Cannula 2.00 05/04/22 07:56 74 05/04/22 07:00 75 17 156/68 (97) 97 Nasal Cannula 2.00 05/04/22 06:14 Nasal Cannula 2.00 05/04/22 06:00 80 28 149/65 (93) 95 Nasal Cannula 2.00 05/04/22 05:00 68 15 157/72 (100) 100 Nasal Cannula 2.00 05/04/22 04:00 36.2 05/04/22 04:00 66 22 162/72 (102) 100 Nasal Cannula 2.00 05/04/22 04:00 95 Nasal Cannula 2.00 05/04/22 03:12 36.3 Nasal Cannula 2.00 05/04/22 03:00 66 22 154/75 (101) 100 Nasal Cannula 2.00 05/04/22 02:00 66 21 164/70 (101) 100 Nasal Cannula 2.00 05/04/22 01:30 67 16 123/85 (98) 100 Nasal Cannula 2.00 05/04/22 01:25 66 05/04/22 01:00 65 28 154/70 (98) 100 Nasal Cannula 2.00 05/04/22 00:02 94 Nasal Cannula 2.00 05/04/22 00:00 65 25 144/63 (90) 100 Nasal Cannula 2.00 05/03/22 23:50 37.2 05/03/22 23:00 69 28 128/52 (77) 94 Nasal Cannula 2.00 05/03/22 22:59 36.0 Nasal Cannula 2.00 05/03/22 22:00 72 28 128/52 (77) 94 Room Air 05/03/22 21:00 71 28 164/68 (100) 94 Room Air 05/03/22 20:23 96 Room Air 05/03/22 20:00 62 25 153/66 (95) 100 Room Air 05/03/22 19:52 36.2 05/03/22 19:00 66 18 159/73 (101) 100 Room Air 05/03/22 19:00 Room Air 05/03/22 19:00 60 05/03/22 18:00 69 27 148/65 (92) 99 Room Air 05/03/22 17:00 70 28 148/61 (90) 98 Room Air 05/03/22 16:00 66 25 143/60 (87) 100 Room Air 05/03/22 15:46 35.7 05/03/22 15:17 97 Nasal Cannula 2.00 05/03/22 15:00 66 26 145/72 (96) 100 Room Air 05/03/22 14:00 68 26 159/70 (99) 100 Room Air I & O 05/04/22 07:00 Intake Total 3010 ml Output Total 6650 ml Balance -3640 ml Capillary Refill : Less Than 3 Seconds General Appearance: No Apparent Distress HEENT: PERRL/EOMI Neck: Full Range of Motion Respiratory: Chest Non Tender, Decreased Breath Sounds Cardiovascular: Regular Rate, Rhythm Gastrointestinal: normal bowel sounds, non tender, soft Extremity: Normal Capillary Refill Neurologic/Psychiatric: Alert, Oriented x3 Skin: Normal Color Lymphatic: No Adenopathy Results Lab Laboratory Tests 05/03/22 20:20: Hemoglobin 8.7L, Hematocrit 25L 05/04/22 04:20: Hemoglobin 8.6L, Hematocrit 25L, White Blood Count 12.6H, Red Blood Count 2.92L, Mean Corpuscular Volume 85, Mean Corpuscular Hemoglobin 30, Mean Corpuscular Hemoglobin Concent 35, Red Cell Distribution Width 18.0H, Platelet Count 100L, Mean Platelet Volume 10.1, Immature Granulocyte % (Auto) 2, Neutrophils (%) (Auto) 86H, Lymphocytes (%) (Auto) 6L, Monocytes (%) (Auto) 5, Eosinophils (%) (Auto) 1, Basophils (%) (Auto) 0, Neutrophils # (Auto) 10.7H, Lymphocytes # (Auto) 0.8L, Monocytes # (Auto) 0.7, Eosinophils # (Auto) 0.1, Basophils # (Auto) 0.0, Immature Granulocyte # (Auto) 0.3H, Percent Immature Platelet Fraction 4.3, Sodium Level 139, Potassium Level 3.0L, Chloride Level 102, Carbon Dioxide Level 28, Anion Gap 9, Blood Urea Nitrogen 9, Creatinine 0.56L, Estimat Glomerular Filtration Rate 96, BUN/Creatinine Ratio 16, Glucose Level 79, Calcium Level 7.8L, Corrected Calcium 9.2, Phosphorus Level 2.4, Magnesium Level 1.6, Total Bilirubin 0.9, Aspartate Amino Transf (AST/SGOT) 13, Alanine Aminotransferase (ALT/SGPT) 10, Alkaline Phosphatase 65, Total Protein 4.4L, Albumin 2.2L 05/04/22 08:20: Vancomycin Level Trough 4.0L Microbiology 05/02/22 Blood Culture - Final, Complete No growth Assessment/Plan Assessment/Plan Assess & Plan/Chief Complaint UGIB secondary gertrudis ulcer s/p EGD and clipping. clinical bleeding decreasing and hb stabilizing. will chnge H/H to q 12 and start diet. ok for floor. Clinical Quality Measures DVT/VTE Risk/Contraindication: Contraindications-Pharm: Other *list below* Other: RICARDO Cazares MD May 04, 2022 13:30
--- NOTE | 2022-05-04 16:30 | Cardiology Progress Note ---
Progress Note-Cardiology Events since last exam Date Seen by Provider: May 04, 2022 Time Seen by Provider: 16:29 Events since last exam I am following her for atrial fibrillation. Her diet has been advanced but she does not like the food here. She denies chest pain, dyspnea at rest, palpitations, or syncope. She has mild ankle edema. Certain portions of this document may have been dictated utilizing voice re cognition technology. Inherent to this technology, typographical and grammatical errors may exist. As much as I am diligent to identify and correct these mistakes, some errors may remain in the document. Vitals Last set of Vitals Signs Vital Signs 05/02/22 05/04/22 00:00 15:54 Temp 37.2 Pulse 74 Resp 20 B/P (MAP) 146/76 (99) Pulse Ox 95 O2 Delivery Nasal Cannula O2 Flow Rate 2.00 FiO2 30 Labs Labs Laboratory Tests 05/03/22 20:20 05/04/22 04:20 Exam Vital Signs Vital Signs Date Time Temp Pulse Resp B/P (MAP) Pulse Ox O2 Delivery O2 Flow Rate FiO2 05/04/22 15:54 37.2 74 20 146/76 (99) 95 Nasal Cannula 2.00 05/02/22 00:00 30 Physical Exam General: Alert. No acute distress. Eye: No xanthelasma. HENT: Normocephalic. Neck: Jugular venous pressure does not appear elevated. Respiratory: Lungs are clear to auscultation. Respirations are non-labored. Breath sounds are equal. Symmetrical chest wall expansion. Cardiovascular: Normal rate. Regular rhythm. Distant S1/S2. No murmur. No gallop. Trace bilateral pretibial edema. Gastrointestinal: Soft. Normal bowel sounds. Skin: Warm. Dry. Neurologic: Alert and oriented to person, place, time. Cranial nerves 3-11 grossly intact. Psychiatric: Cooperative. Appropriate mood & affect. Labs Laboratory Tests Test 05/03/22 20:20 05/04/22 04:20 05/04/22 08:20 Range/Units Hemoglobin 8.7 L 8.6 L 11.5-16.0 g/dL Hematocrit 25 L 25 L 35-52 % White Blood Count 12.6 H 4.3-11.0 10^3/uL Red Blood Count 2.92 L 3.80-5.11 10^6/uL Mean Corpuscular Volume 85 80-99 fL Mean Corpuscular Hemoglobin 30 25-34 pg Mean Corpuscular Hemoglobin Concent 35 32-36 g/dL Red Cell Distribution Width 18.0 H 10.0-14.5 % Platelet Count 100 L 130-400 10^3/uL Mean Platelet Volume 10.1 9.0-12.2 fL Immature Granulocyte % (Auto) 2 % Neutrophils (%) (Auto) 86 H 42-75 % Lymphocytes (%) (Auto) 6 L 12-44 % Monocytes (%) (Auto) 5 0-12 % Eosinophils (%) (Auto) 1 0-10 % Basophils (%) (Auto) 0 0-10 % Neutrophils # (Auto) 10.7 H 1.8-7.8 10^3/uL Lymphocytes # (Auto) 0.8 L 1.0-4.0 10^3/uL Monocytes # (Auto) 0.7 0.0-1.0 10^3/uL Eosinophils # (Auto) 0.1 0.0-0.3 10^3/uL Basophils # (Auto) 0.0 0.0-0.1 10^3/uL Immature Granulocyte # (Auto) 0.3 H 0.0-0.1 10^3/uL Percent Immature Platelet Fraction 4.3 0.0-7.6 % Sodium Level 139 135-145 MMOL/L Potassium Level 3.0 L 3.6-5.0 MMOL/L Chloride Level 102 98-107 MMOL/L Carbon Dioxide Level 28 21-32 MMOL/L Anion Gap 9 5-14 MMOL/L Blood Urea Nitrogen 9 7-18 MG/DL Creatinine 0.56 L 0.60-1.30 MG/DL Estimat Glomerular Filtration Rate 96 BUN/Creatinine Ratio 16 Glucose Level 79 70-105 MG/DL Calcium Level 7.8 L 8.5-10.1 MG/DL Corrected Calcium 9.2 8.5-10.1 MG/DL Phosphorus Level 2.4 2.3-4.7 MG/DL Magnesium Level 1.6 1.6-2.4 MG/DL Total Bilirubin 0.9 0.1-1.0 MG/DL Aspartate Amino Transf (AST/SGOT) 13 5-34 U/L Alanine Aminotransferase (ALT/SGPT) 10 0-55 U/L Alkaline Phosphatase 65 40-136 U/L Total Protein 4.4 L 6.4-8.2 GM/DL Albumin 2.2 L 3.2-4.5 GM/DL Vancomycin Level Trough 4.0 L 10.0-20.0 UG/ML Diagnosis/Problems Diagnosis/Problems (1) Persistent atrial fibrillation Assessment & Plan: She has been remaining in sinus rhythm. I did restart her flecainide. I will restart beta esvin now that she can take oral medication. Anticoagulation is still on hold due to the gastrointestinal hemorrhaging. When she has been cleared by surgery to resume anticoagulation, we can resume oral anticoagulation. Since she has remained in sinus rhythm, we may be able to hold off on resuming oral anticoagulation for a week or longer. (2) Primary hypertension Assessment & Plan: As above, I will resume her beta esvin. She was taking nevibolol at home which we do not have on formulary. I will start metoprolol as above. (3) Acute blood loss anemia Assessment & Plan: Her hemoglobin level has now stabilized. (4) Acute upper gastrointestinal hemorrhage Assessment & Plan: This is being managed by general surgery. As above, oral anticoagulation is on hold. (5) Hypovolemic shock Assessment & Plan: This has now resolved. I stopped her IV fluids on 05/03. (6) Obesity Status: Chronic Assessment & Plan: She needs to work on weight loss. Just 20 pounds of weight loss would help prevent recurrent atrial fibrillation. KAYLI WOODY JR, MD May 04, 2022 16:30
[2022-05-04] MEDS ORDERED: meTOproloL SUCCINATE 50 MG (TOPROL XL) TAB PO NR (17:00)
[2022-05-04] MEDS ORDERED: VANCOMYCIN 1500 MG/NS 500 ML IVPB IV SCH ×2 (22:00)
[2022-05-05] VITALS (8 sets, daily range): BP systolic 145–187; BP diastolic 78–93
[2022-05-05] MEDS: CEFEPIME 1,000 MG/NS 50 ML IVPB IV SCH ×8 (05:34→23:55)
[2022-05-05 05:57] LABS: BASOPHILS % (AUTO) 0 % (0-10); HEMOGLOBIN 8.9 g/dL (11.5-16.0); MEAN CORPUSCULAR VOLUME 86 fL (80-99); MONOCYTES # (AUTO) 0.7 10^3/uL (0.0-1.0)
[2022-05-05 05:58] LABS: EOSINOPHILS # (AUTO) 0.1 10^3/uL (0.0-0.3); EOSINOPHILS % (AUTO) 1 % (0-10); HEMATOCRIT 26 % (35-52); LYMPHOCYTES # (AUTO) 0.5 10^3/uL (1.0-4.0); LYMPHOCYTES % (AUTO) 7 % (12-44); MEAN CORPUSCULAR HEMOGLOBIN 30 pg (25-34); MEAN CORPUSCULAR HGB CONC 35 g/dL (32-36); MEAN PLATELET VOLUME 10.4 fL (9.0-12.2); MONOCYTES % (AUTO) 10 % (0-12); NEUTROPHILS # (AUTO) 5.5 10^3/uL (1.8-7.8); NEUTROPHILS % (AUTO) 80 % (42-75); PLATELET COUNT 144 10^3/uL (130-400); WHITE BLOOD COUNT 6.9 10^3/uL (4.3-11.0)
[2022-05-05 06:10] LABS: ALBUMIN 2.4 GM/DL (3.2-4.5); BILIRUBIN,TOTAL 0.8 MG/DL (0.1-1.0); CALCIUM 8.1 MG/DL (8.5-10.1); CREATININE SERUM 0.53 MG/DL (0.60-1.30); TOTAL PROTEIN 4.7 GM/DL (6.4-8.2)
[2022-05-05] MEDS: SUCRALFATE 1 GM (CARAFATE) TAB PO SCH ×4 (08:13→20:31)
[2022-05-05] MEDS: PANTOPRAZOLE 40 MG (PROTONIX) TAB PO SCH ×2 (08:13→17:03)
[2022-05-05] MEDS: FLECAINIDE 100 MG (TAMBOCOR) TAB PO SCH ×2 (08:13→20:31)
[2022-05-05] MEDS: meTOproloL SUCCINATE 50 MG (TOPROL XL) TAB PO SCH (08:14)
[2022-05-05] MEDS: SENNOSIDES 8.6 MG (SENOKOT) TAB PO SCH ×2 (08:15→21:00)
[2022-05-05] MEDS: DOCUSATE SODIUM 100 MG (COLACE) CAP PO SCH ×2 (08:15→20:31)
[2022-05-05] MEDS: SENNA W/DOCUSATE (SENOKOT S) TABLET PO SCH ×2 (08:15→21:00)
--- NOTE | 2022-05-05 11:15 | Physical Therapy Progress Note ---
Therapy Progress Note Patient states to this PT, "I don't need you anymore. I know what I need to do and I've been getting up in my room by myself without the walker." Patient declined continued skilled PT intervention at this time. RN notified. 1 ref/DC ANTONIO MA PT May 05, 2022 11:15
[2022-05-05] MEDS ORDERED: LOSARTAN 25 MG (COZAAR) TAB PO NR (11:45)
--- NOTE | 2022-05-05 11:47 | Cardiology Progress Note ---
Progress Note-Cardiology Events since last exam Date Seen by Provider: May 05, 2022 Time Seen by Provider: 11:46 Events since last exam I am following her due to atrial fibrillation and hypertension. She feels as though she is slowly regaining strength. She has been up ambulating in her room. She denies chest discomfort, dyspnea at rest, palpitations, or syncope. She has mild bilateral ankle edema. Certain portions of this document may have been dictated utilizing voice recognition technology. Inherent to this technology, typographical and grammatical errors may exist. As much as I am diligent to identify and correct these mistakes, some errors may remain in the document. Vitals Last set of Vitals Signs Vital Signs 05/02/22 05/05/22 05/05/22 00:00 15:21 16:42 Temp 36.2 Pulse 68 Resp 20 B/P (MAP) 150/78 (102) Pulse Ox 98 O2 Delivery Nasal Cannula O2 Flow Rate 2.50 FiO2 30 Labs Labs Laboratory Tests 05/05/22 05:47 Exam Vital Signs Vital Signs Date Time Temp Pulse Resp B/P (MAP) Pulse Ox O2 Delivery O2 Flow Rate FiO2 05/05/22 16:42 150/78 (102) 05/05/22 15:21 36.2 68 20 98 Nasal Cannula 2.50 05/02/22 00:00 30 Physical Exam General: Alert. No acute distress. She is obese. Eye: No xanthelasma. HENT: Normocephalic. Neck: Jugular venous pressure does not appear elevated. Respiratory: Lungs are clear to auscultation. Respirations are non-labored. Breath sounds are equal. Symmetrical chest wall expansion. Cardiovascular: Normal rate. Regular rhythm. Distant S1/S2. No murmur. No ga llop. 1+ bilateral pretibial edema. Gastrointestinal: Soft. Normal bowel sounds. Skin: Warm. Dry. Neurologic: Alert and oriented to person, place, time. Cranial nerves 3-11 grossly intact. Psychiatric: Cooperative. Appropriate mood & affect. Labs Laboratory Tests Test 05/05/22 05:47 Range/Units White Blood Count 6.9 4.3-11.0 10^3/uL Red Blood Count 3.00 L 3.80-5.11 10^6/uL Hemoglobin 8.9 L 11.5-16.0 g/dL Hematocrit 26 L 35-52 % Mean Corpuscular Volume 86 80-99 fL Mean Corpuscular Hemoglobin 30 25-34 pg Mean Corpuscular Hemoglobin Concent 35 32-36 g/dL Red Cell Distribution Width 17.2 H 10.0-14.5 % Platelet Count 144 130-400 10^3/uL Mean Platelet Volume 10.4 9.0-12.2 fL Immature Granulocyte % (Auto) 2 % Neutrophils (%) (Auto) 80 H 42-75 % Lymphocytes (%) (Auto) 7 L 12-44 % Monocytes (%) (Auto) 10 0-12 % Eosinophils (%) (Auto) 1 0-10 % Basophils (%) (Auto) 0 0-10 % Neutrophils # (Auto) 5.5 1.8-7.8 10^3/uL Lymphocytes # (Auto) 0.5 L 1.0-4.0 10^3/uL Monocytes # (Auto) 0.7 0.0-1.0 10^3/uL Eosinophils # (Auto) 0.1 0.0-0.3 10^3/uL Basophils # (Auto) 0.0 0.0-0.1 10^3/uL Immature Granulocyte # (Auto) 0.2 H 0.0-0.1 10^3/uL Percent Immature Platelet Fraction 4.3 0.0-7.6 % Sodium Level 137 135-145 MMOL/L Potassium Level 3.0 L 3.6-5.0 MMOL/L Chloride Level 99 98-107 MMOL/L Carbon Dioxide Level 26 21-32 MMOL/L Anion Gap 12 5-14 MMOL/L Blood Urea Nitrogen 5 L 7-18 MG/DL Creatinine 0.53 L 0.60-1.30 MG/DL Estimat Glomerular Filtration Rate 98 BUN/Creatinine Ratio 9 Glucose Level 76 70-105 MG/DL Calcium Level 8.1 L 8.5-10.1 MG/DL Corrected Calcium 9.4 8.5-10.1 MG/DL Total Bilirubin 0.8 0.1-1.0 MG/DL Aspartate Amino Transf (AST/SGOT) 18 5-34 U/L Alanine Aminotransferase (ALT/SGPT) 16 0-55 U/L Alkaline Phosphatase 82 40-136 U/L Total Protein 4.7 L 6.4-8.2 GM/DL Albumin 2.4 L 3.2-4.5 GM/DL Diagnosis/Problems Diagnosis/Problems (1) Persistent atrial fibrillation Assessment & Plan: She has been remaining in sinus rhythm. I did restart her flecainide and beta esvin. Anticoagulation is still on hold due to the gastrointestinal hemorrhaging. When she has been cleared by surgery to resume anticoagulation, we can resume oral anticoagulation. Since she has remained in sinus rhythm, we may be able to hold off on resuming oral anticoagulation for a week or longer. (2) Primary hypertension Assessment & Plan: As above, I resumed her beta esvin. She was taking nevibolol at home which we do not have on formulary. I started metoprolol as above. Her blood pressure has been trending upwards so I have also ordered losartan but at a lower dose than what she was taking at home. (3) Acute blood loss anemia Assessment & Plan: Her hemoglobin level has now stabilized. (4) Acute upper gastrointestinal hemorrhage Assessment & Plan: This is being managed by general surgery. As above, oral anticoagulation is on hold. (5) Hypovolemic shock Assessment & Plan: This has now resolved. I stopped her IV fluids on 05/03. (6) Obesity Status: Chronic Assessment & Plan: She needs to work on weight loss. Just 20 pounds of weight loss would help prevent recurrent atrial fibrillation. KAYLI WOODY JR, MD May 05, 2022 11:47
--- NOTE | 2022-05-05 11:57 | Occ Therapy Progress Note ---
Therapy Progress Note Pt declined participating in OT session. Pt adamantly declined OT services, stating that she was getting up to go to bathroom by herself and completing all toileting and grooming independently. Pt then stated that if she has any questions when she gets home she will call. LARSON attempted to educate pt that OT services. NEO educated pt on B UE exercises, pt stated that she has that already at home and does not need it here. NEO attempted to educate pt on OT s ervices assisting with problem solving any ADL or IADL issues, pt stated that she is very independent and will do this on her own and feels like is she is capable of doing it now just more slowly. Pt continued to decline the need of OT services. OT to dismiss pt from OT services at this time. 1 visit- FA 1 (20 min) [id number] REBECCA ASTORGA May 05, 2022 11:57
[2022-05-05] MEDS: KCL 20 MEQ TAB (K-DUR) PO SCH ×3 (13:15→17:03)
--- NOTE | 2022-05-05 14:28 | Progress Note ---
Subjective Date Seen by a Provider: May 05, 2022 Time Seen by a Provider: 14:00 Subjective/Events-last exam doing well. hb stable. no signs gi bleed. tolerating diet. Objective Exam Vital Signs Date Time Temp Pulse Resp B/P (MAP) Pulse Ox O2 Delivery O2 Flow Rate FiO2 05/05/22 13:00 71 05/05/22 11:42 36.1 63 17 145/80 (101) 95 Nasal Cannula 2.50 05/05/22 11:11 Nasal Cannula 2.00 05/05/22 09:49 148/86 (106) 05/05/22 07:54 37.5 64 18 178/93 (121) 98 Nasal Cannula 2.50 05/05/22 07:00 63 05/05/22 03:46 36.7 65 18 170/82 (111) 95 Nasal Cannula 2.50 05/05/22 01:00 70 05/04/22 23:29 36.0 69 18 187/82 (117) 93 Nasal Cannula 2.50 05/04/22 20:00 Nasal Cannula 2.00 05/04/22 19:29 36.8 67 20 162/79 (106) 98 Nasal Cannula 2.50 05/04/22 19:00 64 05/04/22 15:54 37.2 74 20 146/76 (99) 95 Nasal Cannula 2.00 I & O 05/05/22 07:00 Intake Total 1465 ml Output Total 2150 ml Balance -685 ml Capillary Refill : Less Than 3 Seconds General Appearance: No Apparent Distress HEENT: PERRL/EOMI Neck: Full Range of Motion Respiratory: Chest Non Tender, Lungs Clear Cardiovascular: Regular Rate, Rhythm Gastrointestinal: normal bowel sounds, non tender, soft Extremity: Normal Capillary Refill Neurologic/Psychiatric: Alert, Oriented x3 Skin: Normal Color Lymphatic: No Adenopathy Results Lab Laboratory Tests 05/05/22 05:47: White Blood Count 6.9, Red Blood Count 3.00L, Hemoglobin 8.9L, Hematocrit 26L, Mean Corpuscular Volume 86, Mean Corpuscular Hemoglobin 30, Mean Corpuscular Hemoglobin Concent 35, Red Cell Distribution Width 17.2H, Platelet Count 144, Mean Platelet Volume 10.4, Immature Granulocyte % (Auto) 2, Neutrophils (%) (Auto) 80H, Lymphocytes (%) (Auto) 7L, Monocytes (%) (Auto) 10, Eosinophils (%) (Auto) 1, Basophils (%) (Auto) 0, Neutrophils # (Auto) 5.5, Lymphocytes # (Auto) 0.5L, Monocytes # (Auto) 0.7, Eosinophils # (Auto) 0.1, Basophils # (Auto) 0.0, Immature Granulocyte # (Auto) 0.2H, Percent Immature Platelet Fraction 4.3, Sodium Level 137, Potassium Level 3.0L, Chloride Level 99, Carbon Dioxide Level 26, Anion Gap 12, Blood Urea Nitrogen 5L, Creatinine 0.53L, Estimat Glomerular Filtration Rate 98, BUN/Creatinine Ratio 9, Glucose Level 76, Calcium Level 8.1L , Corrected Calcium 9.4, Total Bilirubin 0.8, Aspartate Amino Transf (AST/SGOT) 18, Alanine Aminotransferase (ALT/SGPT) 16, Alkaline Phosphatase 82, Total Protein 4.7L, Albumin 2.4L Microbiology 05/02/22 Blood Culture - Final, Complete No growth Assessment/Plan Assessment/Plan Assess & Plan/Chief Complaint UGIB secondary gertrudis ulcer s/p EGD and clipping. clinical bleeding stopped and hb stable diet as tolerated ok for home tomorrow per surgery standpoint. wound recommend holding eliquis and starting ec asa 81mg for 2 weeks then allow cardiology to make decision on what to restart for anticoagulation. will also reocmmend PPI BID and carafate 1g qid for 2 weeks. Clinical Quality Measures DVT/VTE Risk/Contraindication: Contraindications-Pharm: Other *list below* Other: RICARDO Cazares MD May 05, 2022 14:28
--- NOTE | 2022-05-05 18:39 | Progress Note - Hospitalist ---
GLORIA FRANKEL 05/05/22 1839: Subjective HPI/CC On Admission Date Seen by Provider: May 05, 2022 Time Seen by Provider: 10:00 Chief complaint: GI bleed with hypotension and hematemesis with melena Subjective/Events-last exam Patient feeling much better Tolerating food well Hgb stabilized WBC decreased to 6.9 Review of Systems Pulmonary: No Dyspnea, No Cough, No Pleuritic Chest Pain, No Other Cardiovascular: No: Chest Pain, Palpitations, Orthopnea, Paroxysmal Noc. Dyspnea, Edema, Lt Headedness Objective Exam Vital Signs Vital Signs Date Time Temp Pulse Resp B/P (MAP) Pulse Ox O2 Delivery O2 Flow Rate FiO2 05/05/22 16:42 150/78 (102) 05/05/22 15:21 36.2 68 20 98 Nasal Cannula 2.50 05/02/22 00:00 30 Capillary Refill : Less Than 3 Seconds General Appearance: No Apparent Distress Respiratory: Chest Non Tender, Lungs Clear, Normal Breath Sounds, No Accessory Muscle Use, No Respiratory Distress Cardiovascular: Regular Rate, Rhythm, No Edema, No Gallop, No JVD, No Murmur, Normal Peripheral Pulses Gastrointestinal: Normal Bowel Sounds, No Organomegaly, No Pulsatile Mass, Non Tender, Soft Extremity: Other (Improved pedal edema) Results/Procedures Lab Laboratory Tests 05/05/22 05:47 Patient resulted labs reviewed. Assessment/Plan Assessment and Plan Assess & Plan/Chief Complaint S/p GI Bleed Hgb 8.9 today (05/05) Monitor hgb with morning labs Suspected pneumonia Blood cultures negative WBC improved from 12.6 to 6.9 Antibiotic coverage Vanco discontinued Cefepime 50ml @100ml/hr Q6H IV Hypokalemia Potassium level 3.0 Give 20meq KCl Discontinue lasix Monitor BP Recheck with morning labs HTN Lasix discontinued due to hypokalemia BP was 170/82 this AM Metoprolol 50mg PO daily Plan to discharge tomorrow Clinical Quality Measures DVT/VTE Risk/Contraindication: Contraindications-Pharm: Other *list below* Other: ALANA Johnson DO 05/06/22 0508: Subjective Subjective/Events-last exam Patient feeling much better Moving around really well Review of Systems General: Fatigue, Malaise Objective Exam General Appearance: No Apparent Distress, WD/WN, Chronically ill, Obese Respiratory: No Accessory Muscle Use, No Respiratory Distress, Decreased Breath Sounds Cardiovascular: Regular Rate, Rhythm Neurologic/Psychiatric: Alert, Oriented x3, No Motor/Sensory Deficits, Normal Mood/Affect Assessment/Plan Assessment and Plan Assess & Plan/Chief Complaint PT and OT Discharge tomorrow Supervisory-Addendum Brief Verification & Attestation Participated in pt care: history, MDM, physical Personally performed: exam, history, MDM, supervision of care Care discussed with: Medical Student Procedures: n/a Results interpretation: Verified all documentation Verification and Attestation of Medical Student E/M Service A medical student performed and documented this service in my presence. I reviewed and verified all information documented by the medical student and made modifications to such information, when appropriate. I personally performed the physical exam and medical decision making. Alana Yusuf, May 06, 2022,05:08 GLORIA FRANKEL May 05, 2022 18:39 ALANA YUSUF DO May 06, 2022 05:08
[2022-05-05] MEDS: ACETAMINOPHEN 325 MG TABLET PO PRN (20:32)
[2022-05-06] VITALS (7 sets, daily range): BP systolic 138–177; BP diastolic 76–96
[2022-05-06 05:52] LABS: BASOPHILS % (AUTO) 0 % (0-10); HEMOGLOBIN 9.2 g/dL (11.5-16.0); MEAN CORPUSCULAR VOLUME 87 fL (80-99)
[2022-05-06 05:54] LABS: EOSINOPHILS # (AUTO) 0.2 10^3/uL (0.0-0.3); EOSINOPHILS % (AUTO) 4 % (0-10); HEMATOCRIT 28 % (35-52); LYMPHOCYTES # (AUTO) 0.7 10^3/uL (1.0-4.0); LYMPHOCYTES % (AUTO) 12 % (12-44); MEAN CORPUSCULAR HEMOGLOBIN 29 pg (25-34); MEAN CORPUSCULAR HGB CONC 33 g/dL (32-36); MEAN PLATELET VOLUME 10.2 fL (9.0-12.2); MONOCYTES # (AUTO) 0.8 10^3/uL (0.0-1.0); MONOCYTES % (AUTO) 13 % (0-12); NEUTROPHILS # (AUTO) 4.1 10^3/uL (1.8-7.8); NEUTROPHILS % (AUTO) 68 % (42-75); PLATELET COUNT 223 10^3/uL (130-400); WHITE BLOOD COUNT 5.9 10^3/uL (4.3-11.0)
[2022-05-06] MEDS: CEFEPIME 1,000 MG/NS 50 ML IVPB IV SCH ×6 (06:13→16:50)
[2022-05-06 06:16] LABS: ALBUMIN 2.4 GM/DL (3.2-4.5); BILIRUBIN,TOTAL 0.5 MG/DL (0.1-1.0); CALCIUM 8.5 MG/DL (8.5-10.1); CREATININE SERUM 0.51 MG/DL (0.60-1.30); POTASSIUM 3.1 MMOL/L (3.6-5.0); TOTAL PROTEIN 4.8 GM/DL (6.4-8.2)
[2022-05-06] MEDS: meTOproloL SUCCINATE 50 MG (TOPROL XL) TAB PO SCH (08:31)
[2022-05-06] MEDS: DOCUSATE SODIUM 100 MG (COLACE) CAP PO SCH ×2 (08:31→20:12)
[2022-05-06] MEDS: FLECAINIDE 100 MG (TAMBOCOR) TAB PO SCH ×2 (08:31→20:12)
[2022-05-06] MEDS: LOSARTAN 25 MG (COZAAR) TAB PO SCH (08:31)
[2022-05-06] MEDS: PANTOPRAZOLE 40 MG (PROTONIX) TAB PO SCH ×2 (08:31→16:50)
[2022-05-06] MEDS: KCL 20 MEQ TAB (K-DUR) PO SCH ×3 (08:31→16:50)
[2022-05-06] MEDS: SUCRALFATE 1 GM (CARAFATE) TAB PO SCH ×4 (08:31→20:12)
[2022-05-06] MEDS: SENNOSIDES 8.6 MG (SENOKOT) TAB PO SCH ×2 (08:32→20:12)
[2022-05-06] MEDS: SENNA W/DOCUSATE (SENOKOT S) TABLET PO SCH ×2 (08:32→20:12)
--- NOTE | 2022-05-06 09:21 | Cardiology Progress Note ---
Progress Note-Cardiology Events since last exam Date Seen by Provider: May 06, 2022 Time Seen by Provider: 09:20 Events since last exam I am following her due to paroxysmal atrial fibrillation now here with an upper gastrointestinal hemorrhage. She has been up ambulating in her room. She feels as though she is getting stronger. She denies chest discomfort, dyspnea, palpitations, syncope, or ankle edema. Certain portions of this document may have been dictated utilizing voice recognition technology. Inherent to this technology, typographical and grammatical errors may exist. As much as I am diligent to identify and correct these mistakes, some errors may remain in the document. Vitals Last set of Vitals Signs Vital Signs 05/02/22 05/06/22 00:00 12:34 Temp 36.5 Pulse 65 Resp 18 B/P (MAP) 168/87 (114) Pulse Ox 99 O2 Delivery Nasal Cannula O2 Flow Rate 2.50 FiO2 30 Labs Labs Laboratory Tests 05/06/22 05:44 Exam Vital Signs Vital Signs Date Time Temp Pulse Resp B/P (MAP) Pulse Ox O2 Delivery O2 Flow Rate FiO2 05/06/22 12:34 36.5 65 18 168/87 (114) 99 Nasal Cannula 2.50 05/02/22 00:00 30 Physical Exam General: Alert. No acute distress. She is obese. Eye: No xanthelasma. HENT: Normocephalic. Neck: Jugular venous pressure does not appear elevated. Respiratory: Lungs are clear to auscultation. Respirations are non-labored. Breath sounds are equal. Symmetrical chest wall expansion. Cardiovascular: Normal rate. Regular rhythm. No murmur. No gallop. No edema. Gastrointestinal: Soft. Normal bowel sounds. Skin: Warm. Dry. Neurologic: Alert and oriented to person, place, time. Cranial nerves 3-11 grossly intact. Psychiatric: Cooperative. Appropriate mood & affect. Labs Laboratory Tests Test 05/06/22 05:44 Range/Units White Blood Count 5.9 4.3-11.0 10^3/uL Red Blood Count 3.20 L 3.80-5.11 10^6/uL Hemoglobin 9.2 L 11.5-16.0 g/dL Hematocrit 28 L 35-52 % Mean Corpuscular Volume 87 80-99 fL Mean Corpuscular Hemoglobin 29 25-34 pg Mean Corpuscular Hemoglobin Concent 33 32-36 g/dL Red Cell Distribution Width 16.8 H 10.0-14.5 % Platelet Count 223 130-400 10^3/uL Mean Platelet Volume 10.2 9.0-12.2 fL Immature Granulocyte % (Auto) 3 % Neutrophils (%) (Auto) 68 42-75 % Lymphocytes (%) (Auto) 12 12-44 % Monocytes (%) (Auto) 13 H 0-12 % Eosinophils (%) (Auto) 4 0-10 % Basophils (%) (Auto) 0 0-10 % Neutrophils # (Auto) 4.1 1.8-7.8 10^3/uL Lymphocytes # (Auto) 0.7 L 1.0-4.0 10^3/uL Monocytes # (Auto) 0.8 0.0-1.0 10^3/uL Eosinophils # (Auto) 0.2 0.0-0.3 10^3/uL Basophils # (Auto) 0.0 0.0-0.1 10^3/uL Immature Granulocyte # (Auto) 0.2 H 0.0-0.1 10^3/uL Percent Immature Platelet Fraction 3.8 0.0-7.6 % Sodium Level 141 135-145 MMOL/L Potassium Level 3.1 L 3.6-5.0 MMOL/L Chloride Level 103 98-107 MMOL/L Carbon Dioxide Level 28 21-32 MMOL/L Anion Gap 10 5-14 MMOL/L Blood Urea Nitrogen 5 L 7-18 MG/DL Creatinine 0.51 L 0.60-1.30 MG/DL Estimat Glomerular Filtration Rate 99 BUN/Creatinine Ratio 10 Glucose Level 85 70-105 MG/DL Calcium Level 8.5 8.5-10.1 MG/DL Corrected Calcium 9.8 8.5-10.1 MG/DL Total Bilirubin 0.5 0.1-1.0 MG/DL Aspartate Amino Transf (AST/SGOT) 20 5-34 U/L Alanine Aminotransferase (ALT/SGPT) 20 0-55 U/L Alkaline Phosphatase 80 40-136 U/L Total Protein 4.8 L 6.4-8.2 GM/DL Albumin 2.4 L 3.2-4.5 GM/DL Diagnosis/Problems Diagnosis/Problems (1) Persistent atrial fibrillation Assessment & Plan: She has been remaining in sinus rhythm. I did restart her flecainide and beta esvin. Anticoagulation is still on hold due to the gastrointestinal hemorrhaging. When she has been cleared by surgery to resume anticoagulation, we can resume oral anticoagulation. Since she has remained in sinus rhythm, we may be able to hold off on resuming oral anticoagulation for a week or longer. (2) Primary hypertension Assessment & Plan: As above, I resumed her beta esvin. She was taking nevibolol at home which we do not have on formulary. I started metoprolol as above. Her blood pressure has been trending upwards so I have also ordered losartan but at a lower dose than what she was taking at home. (3) Acute blood loss anemia Assessment & Plan: Her hemoglobin level has now stabilized. I will consider resuming apixaban in 2 weeks. (4) Acute upper gastrointestinal hemorrhage Assessment & Plan: This is being managed by general surgery. As above, oral anticoagulation is on hold. (5) Hypovolemic shock Assessment & Plan: This has now resolved. I stopped her IV fluids on 05/03. (6) Obesity Status: Chronic Assessment & Plan: She needs to work on weight loss. Just 20 pounds of weight loss would help prevent recurrent atrial fibrillation. KAYLI WOODY JR, MD May 06, 2022 09:21
--- NOTE | 2022-05-06 11:10 | Progress Note ---
Subjective Date Seen by a Provider: May 06, 2022 Time Seen by a Provider: 11:00 Subjective/Events-last exam doing well. tolerating diet but does not like food. no clinical GE bleed. Objective Exam Vital Signs Date Time Temp Pulse Resp B/P (MAP) Pulse Ox O2 Delivery O2 Flow Rate FiO2 05/06/22 09:37 142/78 (99) 05/06/22 08:00 36.3 61 18 175/89 (117) 99 Nasal Cannula 2.50 05/06/22 07:30 Nasal Cannula 2.00 05/06/22 07:00 66 05/06/22 04:06 35.9 63 18 177/96 (123) 99 Nasal Cannula 2.50 05/06/22 01:00 60 05/05/22 23:59 36.0 64 20 174/86 (115) 97 Nasal Cannula 2.50 05/05/22 20:40 97 Nasal Cannula 2.50 05/05/22 19:38 36.6 66 20 158/81 (106) 96 Nasal Cannula 2.50 05/05/22 19:00 70 05/05/22 16:42 150/78 (102) 05/05/22 15:21 36.2 68 20 165/85 (111) 98 Nasal Cannula 2.50 05/05/22 13:00 71 05/05/22 11:42 36.1 63 17 145/80 (101) 95 Nasal Cannula 2.50 05/05/22 11:11 Nasal Cannula 2.00 I & O 05/06/22 06:59 Intake Total 1770 ml Output Total 400 ml Balance 1370 ml Capillary Refill : Less Than 3 Seconds General Appearance: No Apparent Distress HEENT: PERRL/EOMI Neck: Full Range of Motion Respiratory: Chest Non Tender, Lungs Clear Cardiovascular: Regular Rate, Rhythm Gastrointestinal: normal bowel sounds, non tender, soft Extremity: Normal Capillary Refill Neurologic/Psychiatric: Alert, Oriented x3 Skin: Normal Color Lymphatic: No Adenopathy Results Lab Laboratory Tests 05/06/22 05:44: White Blood Count 5.9, Red Blood Count 3.20L, Hemoglobin 9.2L, Hematocrit 28L, Mean Corpuscular Volume 87, Mean Corpuscular Hemoglobin 29, Mean Corpuscular Hemoglobin Concent 33, Red Cell Distribution Width 16.8H, Platelet Count 223, Mean Platelet Volume 10.2, Immature Granulocyte % (Auto) 3, Neutrophils (%) (Auto) 68, Lymphocytes (%) (Auto) 12, Monocytes (%) (Auto) 13H, Eosinophils (%) (Auto) 4, Basophils (%) (Auto) 0, Neutrophils # (Auto) 4.1, Lymphocytes # (Auto) 0.7L, Monocytes # (Auto) 0.8, Eosinophils # (Auto) 0.2, Basophils # (Auto) 0.0, Immature Granulocyte # (Auto) 0.2H, Percent Immature Platelet Fraction 3.8, So dium Level 141, Potassium Level 3.1L, Chloride Level 103, Carbon Dioxide Level 28, Anion Gap 10, Blood Urea Nitrogen 5L, Creatinine 0.51L, Estimat Glomerular Filtration Rate 99, BUN/Creatinine Ratio 10, Glucose Level 85, Calcium Level 8.5, Corrected Calcium 9.8, Total Bilirubin 0.5, Aspartate Amino Transf (AST/SGOT) 20, Alanine Aminotransferase (ALT/SGPT) 20, Alkaline Phosphatase 80, Total Protein 4.8L, Albumin 2.4L Microbiology 05/02/22 Blood Culture - Final, Complete No growth Assessment/Plan Assessment/Plan Assess & Plan/Chief Complaint UGIB secondary gertrudis ulcer s/p EGD and clipping. clinical bleeding stopped and hb stable diet as tolerated ok for home tomorrow per surgery standpoint. wound recommend holding eliquis and starting ec asa 81mg for 2 weeks then allow cardiology to make decision on what to restart for anticoagulation. will also reocmmend PPI BID and carafate 1g qid for 2 weeks. Clinical Quality Measures DVT/VTE Risk/Contraindication: Contraindications-Pharm: Other *list below* Other: RICARDO Cazares MD May 06, 2022 11:10
--- NOTE | 2022-05-06 11:59 | Progress Note ---
GLORIA FRANKEL 05/06/22 1159: Progress Note Luca Onofre is a 71yo female who was admitted with bleeding after a tongue biopsy. Upon further workup the patient was found to have an upper GI bleed for which she required 10 units of RBC and 2 units of FFP after which the patients hemoglobin stabilized. Post-operatively while in the ICU she had an elevated WBC count and suspected right lower lobe pneumonia which was covered with cefepime and vancomycin. The plan is to discharge the patient tomorrow (05/07/2022). ALANA CASILLAS DO 05/06/22 2223: Supervisory-Addendum Brief Verification & Attestation Participated in pt care: history, MDM, physical Personally performed: exam, history, MDM, supervision of care Care discussed with: Medical Student Procedures: n/a Results interpretation: Verified all documentation Verification and Attestation of Medical Student E/M Service A medical student performed and documented this service in my presence. I reviewed and verified all information documented by the medical student and made modifications to such information, when appropriate. I personally performed the physical exam and medical decision making. Alana Casillas, May 06, 2022,22:23 GLORIA FRANKEL May 06, 2022 11:59 ALANA CASILLAS DO May 06, 2022 22:23
[2022-05-06] MEDS: APIXABAN 5 MG (ELIQUIS) TABLET PO SCH ×2 (22:05→22:09)
[2022-05-07] VITALS: BP 152/83
[2022-05-07] MEDS: CEFEPIME 1,000 MG/NS 50 ML IVPB IV SCH ×4 (00:06→05:43)
[2022-05-07 04:00] VITALS: BP 162/75
[2022-05-07 04:45] LABS: BASOPHILS % (AUTO) 0 % (0-10); EOSINOPHILS # (AUTO) 0.3 10^3/uL (0.0-0.3); EOSINOPHILS % (AUTO) 4 % (0-10); HEMATOCRIT 30 % (35-52); HEMOGLOBIN 9.9 g/dL (11.5-16.0); LYMPHOCYTES # (AUTO) 1.3 10^3/uL (1.0-4.0); LYMPHOCYTES % (AUTO) 19 % (12-44); MEAN CORPUSCULAR HEMOGLOBIN 29 pg (25-34); MEAN CORPUSCULAR HGB CONC 33 g/dL (32-36); MEAN CORPUSCULAR VOLUME 87 fL (80-99); MEAN PLATELET VOLUME 9.8 fL (9.0-12.2); MONOCYTES # (AUTO) 0.7 10^3/uL (0.0-1.0); MONOCYTES % (AUTO) 10 % (0-12); NEUTROPHILS # (AUTO) 4.5 10^3/uL (1.8-7.8); NEUTROPHILS % (AUTO) 67 % (42-75); PLATELET COUNT 349 10^3/uL (130-400); WHITE BLOOD COUNT 6.7 10^3/uL (4.3-11.0)
[2022-05-07 05:21] LABS: ALBUMIN 2.8 GM/DL (3.2-4.5); BILIRUBIN,TOTAL 0.5 MG/DL (0.1-1.0); CALCIUM 8.9 MG/DL (8.5-10.1); CREATININE SERUM 0.53 MG/DL (0.60-1.30); POTASSIUM 3.4 MMOL/L (3.6-5.0); TOTAL PROTEIN 5.6 GM/DL (6.4-8.2)
[2022-05-07 07:48] VITALS: BP 140/80
[2022-05-07] MEDS ORDERED: FLUoxetine HCL 20 MG (PROzac) CAP PO SCH (09:00)
[2022-05-07] MEDS: FLECAINIDE 100 MG (TAMBOCOR) TAB PO SCH (09:03)
[2022-05-07] MEDS: KCL 20 MEQ TAB (K-DUR) PO SCH (09:04)
[2022-05-07] MEDS: LOSARTAN 25 MG (COZAAR) TAB PO SCH (09:04)
[2022-05-07] MEDS: SUCRALFATE 1 GM (CARAFATE) TAB PO SCH (09:04)
[2022-05-07] MEDS: meTOproloL SUCCINATE 50 MG (TOPROL XL) TAB PO SCH (09:04)
[2022-05-07] MEDS: DOCUSATE SODIUM 100 MG (COLACE) CAP PO SCH (09:04)
[2022-05-07] MEDS: SENNA W/DOCUSATE (SENOKOT S) TABLET PO SCH (09:04)
[2022-05-07] MEDS: PANTOPRAZOLE 40 MG (PROTONIX) TAB PO SCH (09:04)
[2022-05-07] MEDS: SENNOSIDES 8.6 MG (SENOKOT) TAB PO SCH (09:05)
[2022-05-07] MEDS ORDERED: OMEP20TA56 PO (09:56)
[2022-05-07] MEDS ORDERED: SUCR1TAB PO (09:56)
[2022-05-07 12:00] VITALS: BP 140/80
--- NOTE | 2022-05-07 12:01 | Discharge Summary ---
Diagnosis/Chief Complaint Date of Admission Apr 30, 2022 at 03:10 Date of Discharge Discharge Date: May 07, 2022 Admission Diagnosis Assessment: GI bleed Acute blood loss anemia requiring transfusion Hypotension from hypovolemia GERD Atrial fibrillation Plan: Transfused [address] SPAIN Consult eICU Protonix IV Primary Care GinobriseidaKristinaher Catracho Workman Discharge Diagnosis (1) Persistent atrial fibrillation Assessment & Plan: She has been remaining in sinus rhythm. I did restart her flecainide and beta esvin. Anticoagulation is still on hold due to the gastrointestinal hemorrhaging. When she has been cleared by surgery to resume anticoagulation, we can resume oral anticoagulation. Since she has remained in sinus rhythm, we may be able to hold off on resuming oral anticoagulation for a week or longer. (2) Primary hypertension Assessment & Plan: As above, I resumed her beta esvin. She was taking nevibolol at home which we do not have on formulary. I started metoprolol as above. Her blood pressure has been trending upwards so I have also ordered losartan but at a lower dose than what she was taking at home. (3) Acute blood loss anemia Assessment & Plan: Her hemoglobin level has now stabilized. I will consider resuming apixaban in 2 weeks. (4) Acute upper gastrointestinal hemorrhage Assessment & Plan: This is being managed by general surgery. As above, oral anticoagulation is on hold. (5) Hypovolemic shock Assessment & Plan: This has now resolved. I stopped her IV fluids on 05/03. (6) Obesity Status: Chronic Assessment & Plan: She needs to work on weight loss. Just 20 pounds of weight loss would help prevent recurrent atrial fibrillation. Discharge Summary Discharge Physical Exam Allergies: Coded Allergies: No Known Drug Allergies (Unverified , 04/22/22) Vitals & I&Os Vital Signs Date Time Temp Pulse Resp B/P (MAP) Pulse Ox O2 Delivery O2 Flow Rate FiO2 05/07/22 08:10 Nasal Cannula 2.00 05/07/22 07:48 36.2 67 17 140/80 (100) 93 05/02/22 00:00 30 General Appearance: No Apparent Distress, Obese Respiratory: Chest Non Tender, Lungs Clear, Normal Breath Sounds, No Accessory Muscle Use, No Respiratory Distress Cardiovascular: Regular Rate, Rhythm, No Edema, No Gallop, No JVD, No Murmur, Normal Peripheral Pulses Gastrointestinal: Normal Bowel Sounds, No Organomegaly, No Pulsatile Mass, Non Tender, Soft Hospital Course Was the Problem List Reviewed?: Yes History of present illness: This is a 71-year-old who underwent a tongue biopsy recently by Dr. Huang and reported bleeding per rectum so she was admitted to Dr. Huang who assessed the tongue biopsy site not to be the source of bleed but instead a gastrointestinal bleed so she was moved up to the ICU due to mild hypotension and continued melena and IV fluids initiated which helped the hypotension but continued to be hypotensive more bleeding and repeat hemoglobin was 7.8 I did order 2 units of blood and consulted Dr. SPAIN and eICU.Patient was admitted to the intensive care unit and I was told that over the course of her stay she had around 10 units of blood. 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 Patient had cessation of bleeding and discharge hemoglobin was 9.9 up from 9.2 yesterday with no evidence for any ongoing bleeding. She had only been taking omeprazole intermittently and had been taking a fair amount of ibuprofen as I recall and had been on Eliquis for paroxysmal atrial fibrillation. This is being held and she was told to avoid nonsteroidals and aspirin increase her omeprazole to 20 mg twice daily and Dr. Spain initiated Carafate a gram 4 times daily which she will continue. She will follow-up with Dr. Polanco in regards to paroxysmal atrial fibrillation and Dr. Spain she had no evidence for atrial fibrillation recurrence in both Dr. Judit Polanco appear to be recommending about 2 weeks off of anticoagulation we will leave it to them in regards to resumption. Labs (last 24 hrs) Laboratory Tests 05/07/22 04:37: White Blood Count 6.7, Red Blood Count 3.40L, Hemoglobin 9.9L, Hematocrit 30L, Mean Corpuscular Volume 87, Mean Corpuscular Hemoglobin 29, Mean Corpuscular Hemoglobin Concent 33, Red Cell Distribution Width 16.7H, Platelet Count 349, Mean Platelet Volume 9.8, Immature Granulocyte % (Auto) 2, Neutrophils (%) (Auto) 67, Lymphocytes (%) (Auto) 19, Monocytes (%) (Auto) 10, Eosinophils (%) (Auto) 4, Basophils (%) (Auto) 0, Neutrophils # (Auto) 4.5, Lymphocytes # (Auto) 1.3, Monocytes # (Auto) 0.7, Eosinophils # (Auto) 0.3, Basophils # (Auto) 0.0, Immature Granulocyte # (Auto) 0.1, Sodium Level 139, Potassium Level 3.4L, Chloride Level 102, Carbon Dioxide Level 25, Anion Gap 12, Blood Urea Nitrogen 6L, Creatinine 0.53L, Estimat Glomerular Filtration Rate 98, BUN/Creatinine Ratio 11, Glucose Level 86, Calcium Level 8.9, Corrected Calcium 9.9, Total Bilirubin 0.5, Aspartate Amino Transf (AST/SGOT) 20, Alanine Aminotransferase (ALT/SGPT) 22, Alkaline Phosphatase 90, Total Protein 5.6L, Albumin 2.8L Microbiology 05/02/22 Blood Culture - Final, Complete No growth Patient resulted labs reviewed. Pending Labs Laboratory Tests 05/07/22 04:37: White Blood Count 6.7, Red Blood Count 3.40, Hemoglobin 9.9, Hematocrit 30, Mean Corpuscular Volume 87, Mean Corpuscular Hemoglobin 29, Mean Corpuscular Hemoglobin Concent 33, Red Cell Distribution Width 16.7, Platelet Count 349, Mean Platelet Volume 9.8, Immature Granulocyte % (Auto) 2, Neutrophils (%) (Auto) 67, Lymphocytes (%) (Auto) 19, Monocytes (%) (Auto) 10, Eosinophils (%) (Auto) 4, Basophils (%) (Auto) 0, Neutrophils # (Auto) 4.5, Lymphocytes # (Auto) 1.3, Monocytes # (Auto) 0.7, Eosinophils # (Auto) 0.3, Basophils # (Auto) 0.0, Immature Granulocyte # (Auto) 0.1, Sodium Level 139, Potassium Level 3.4, Chloride Level 102, Carbon Dioxide Level 25, Anion Gap 12, Blood Urea Nitrogen 6, Creatinine 0.53, Estimat Glomerular Filtration Rate 98, BUN/Creatinine Ratio 11, Glucose Level 86, Calcium Level 8.9, Corrected Calcium 9.9, Total Bilirubin 0.5, Aspartate Amino Transf (AST/SGOT) 20, Alanine Aminotransferase (ALT/SGPT) 22, Alkaline Phosphatase 90, Total Protein 5.6, Albumin 2.8 Discussion & Recommendations Discharge Planning: >30 minutes discharge planning Discharge Home Medications: Active Scripts Active Sucralfate 1 Gram Tablet 1 Gm PO QIDACHS 14 Days Omeprazole 20 Mg Tablet.dr 20 Mg PO BID 30 Days Reported Nebivolol HCl 20 Mg Tablet 20 Mg PO BID Hydrocodone-Acetamin 5-325 mg (Hydrocodone/Acetaminophen) 5 Mg-325 Mg Tablet 1 Tab PO Q4H PRN Biotin 10,000 Mcg Capsule 10,000 Mcg PO DAILY [Thrive Vitamin] Unknown Strength 2 Ea PO DAILY Calcium 600 + Vit D3 400 Tab (Calcium Carbonate/Vitamin D3) 600 Mg Calcium-10 Mcg (400 Unit) Tablet 1 Each PO DAILY Losartan Potassium 100 Mg Tablet 100 Mg PO DAILY Flecainide Acetate 100 Mg Tablet 100 Mg PO BID Tylenol (Acetaminophen) 325 Mg Tablet 325-650 Mg PO Q8H PRN Fluoxetine HCl 20 Mg Capsule 20 Mg PO DAILY Instructions to patient/family Please see electronic discharge instructions given to patient. Clinical Quality Measures DVT/VTE Risk/Contraindication: Contraindications-Pharm: Other *list below* Other: gib Copy Copies To 1: [facility]/VANGIE CHAMBERLAIN MD May 07, 2022 12:01
== END 2022-05-07 11:55 | disposition home or self-care (01) | DRG 377 ==
LOC: EDUNIT# 01:40 → ER 01:41 → 4TH 03:10 → EDLOC 03:10 → ICU 09:29 → 4TH 05-04 13:01
PROVIDERS: ADMIT Otolaryngology Otolaryngology/Facial Plastic Surgery; ATTEND Internal Medicine
PROC: 0W3P8ZZ Control Bleeding in Gastrointestinal Tract, Via Natural or Artificial Opening Endoscopic (ICD-10-PCS; principal; 2022-05-01 09:00)
PROC: 0DB78ZX Excision of Stomach, Pylorus, Via Natural or Artificial Opening Endoscopic, Diagnostic (ICD-10-PCS; 2022-05-02)
DX: K25.4 Chronic or unspecified gastric ulcer with hemorrhage (principal); J18.9 Pneumonia, unspecified organism; R57.1 Hypovolemic shock; D62 Acute posthemorrhagic anemia; I48.19 Other persistent atrial fibrillation; K91.840 Postprocedural hemorrhage of a digestive system organ or structure following a digestive system procedure; I95.9 Hypotension, unspecified; K29.70 Gastritis, unspecified, without bleeding; K44.9 Diaphragmatic hernia without obstruction or gangrene; G47.33 Obstructive sleep apnea (adult) (pediatric); I10 Essential (primary) hypertension; K21.9 Gastro-esophageal reflux disease without esophagitis; E78.5 Hyperlipidemia, unspecified; E66.9 Obesity, unspecified; E87.6 Hypokalemia; F41.9 Anxiety disorder, unspecified; F32.A Depression, unspecified; R73.9 Hyperglycemia, unspecified; H54.7 Unspecified visual loss; E87.70 Fluid overload, unspecified; Z79.01 Long term (current) use of anticoagulants; Z68.35 Body mass index [BMI] 35.0-35.9, adult
CPT/HCPCS: 36415; 36600; 71045; 80048; 80053; 80202; 82607; 82728; 82805; 83540; 83550; 83605; 83735; 84100; 84145; 85007; 85014; 85018; 85025; 85027; 85610; 85730; 86850; 86900; 86901; 86920; 87040; 88305; 93005; 93041; 94660; 96361; 96365; 96375; G0378

== ENCOUNTER 2022-08-03 05:35 | Outpatient (CLI) | payer MEDICARE, MEDICAID ==
[~2022-08-03] VITALS: Ht 172.7 cm; Wt 111.1 kg
[~2022-08-03 05:35] MED LIST changes: +NEBI20TA6 PO; +OMEP20TA56 PO; +SUCR1TAB PO
[2022-08-03] MEDS ORDERED: APIX5TAB PO (11:46)
[2022-08-03] MEDS ORDERED: SUCR1TAB PO (11:46)
[2022-08-03] MEDS ORDERED: OMEP40CA6 PO (11:46)
[2022-08-03] MEDS ORDERED: PANT40TA2 PO (11:46)
== END 2022-08-03 11:53 | disposition home or self-care (01) ==
LOC: PREOP 05:35
PROVIDERS: ATTEND Surgery
DX: Z01.818 Encounter for other preprocedural examination (principal)

== ENCOUNTER 2022-08-10 09:05 | Day surgery (SDC) | payer MEDICARE, MEDICAID ==
[~2022-08-10] VITALS: Ht 173 cm; Wt 111.1 kg
[~2022-08-10 09:05] MED LIST changes: +OMEP40CA6 PO; +PANT40TA2 PO
[2022-08-10] MEDS ORDERED: LACTATED RINGERS 1,000 ML IV STA (09:16)
[2022-08-10] MEDS ORDERED: HURRICAINE EXT TUBE (BENZOCAINE) XX PRN (09:30)
[2022-08-10] MEDS ORDERED: LIDOCAINE JELLY 2% 6 ML SYRINGE MM PRN (09:30)
[2022-08-10 09:34] VITALS: BP 163/79
[2022-08-10] MEDS ORDERED: PROPOFOL INJECTION 50 ML IV ONE (10:12)
--- NOTE | 2022-08-10 10:41 | Progress Note-Pre Operative ---
Pre-Operative Progress Note Date of Available H&P: Aug 10, 2022 Date H&P Reviewed: Aug 10, 2022 Time H&P Reviewed: 10:00 History & Physical: No changes noted Pre-Operative Diagnosis: hx bleeding gertrudis ulcer RICARDO VALERIO MD Aug 10, 2022 10:41
--- NOTE | 2022-08-10 10:42 | Discharge Inst-Surgical ---
D/C Lap Instructions-IMAN Follow Up Activity as tolerated High Fiber Diet 25g or more per day Avoid Alcohol, Caffeine, Spicy [place] and Acid foods. Drink 64 fluid oz or more of fluids per day. Symptoms to Report: Fever over 101 degree F, Nausea/Vomiting If any problems/questions: Contact your physician or go to Emergency Room RICARDO VALERIO MD Aug 10, 2022 10:42
[2022-08-10] MEDS ORDERED: ONDANSETRON 4 MG (ZOFRAN) ORAL DISSOLVE TAB PO PRN (10:45)
[2022-08-10] MEDS ORDERED: ONDANSETRON 4 MG/2 ML (SDV) Z0FRAN IVP PRN (10:45)
[2022-08-10 10:55] VITALS: BP 158/77
[2022-08-10 11:00] VITALS: BP 155/70
--- NOTE | 2022-08-10 11:07 | Progress Note-Post Operative ---
Post-Operative Progess Note Surgeon (s)/Clean Up Worker (s) Surgeon RICARDO VALERIO MD Clean Up Worker: none Pre-Operative Diagnosis hx bleeding gertrudis ulcer Post-Operative Diagnosis reflux esophagitis(grade B), intact single clip with no residual ulcer/redness/hyperemia/bleeding, large HH(4cm), mild-mod gastritis. Procedure & Operative Findings Date of Procedure 08/10/22 Procedure Performed/Findings EGD with bx. Anesthesia Type mac Estimated Blood Loss Estimated blood loss (mL): minimal Specimens/Packing Specimens Removed ge jxn, antrum RCIARDO VALERIO MD Aug 10, 2022 11:07
[2022-08-10 11:15] VITALS: BP 150/78
[2022-08-10 11:40] VITALS: BP 150/78
--- NOTE | 2022-08-10 14:16 | Anesthesia-General Post-Op ---
MAC Patient Condition Mental Status/LOC: Same as Preop Cardiovascular: Satisfactory Nausea/Vomiting: Absent Respiratory: Satisfactory Pain: Controlled Complications: Absent Post Op Complications Complications None Follow Up Care/Instructions Patient Instructions None needed. Anesthesiology Discharge Order Discharge Order Patient is doing well, no complaints, stable vital signs, no apparent adverse anesthesia problems. No complications reported per nursing. NATACHA WAGNER CRNA Aug 10, 2022 14:16
--- NOTE | 2022-08-10 21:33 | OPERATIVE REPORT ---
DATE OF SERVICE: 08/10/2022 ATTENDING PRIMARY DYNAMOMETER TUNER: [facility]. PREOPERATIVE DIAGNOSES: History of active upper gastrointestinal bleed due to Rajat's ulcer and large hiatal hernia, status post EGD and a hemostatic clip placement. POSTOPERATIVE DIAGNOSES: Reflux esophagitis, [place] grade B, large hiatal hernia, one of two intact clips. This area is completely healed. No residual Rajat's ulceration. Mild to moderate gastritis. PROCEDURE: EGD with biopsy. SURGEON: Ricardo Valerio MD ANESTHESIA: Monitored anesthesia care. ESTIMATED BLOOD LOSS: Minimal. FINDINGS: Reflux esophagitis, [place] grade B, large hiatal hernia, one of two intact clips. This area is completely healed. No residual Rajat's ulceration. Mild to moderate gastritis. DISPOSITION: The patient tolerated the procedure well. INDICATIONS: The patient is a 71-year-old female, who underwent a tongue biopsy, which was found to be benign and was healing well with no bleeding. She did develop nausea and vomiting and hematemesis and had vasovagal episode on the floor and was also found to have dark loose stools. She was transferred to the ICU, started on Protonix drip, Carafate and continued resuscitation with blood products. On 05/01/2022, she underwent an EGD and was found to have a bleeding Rajat's ulcer within a large hiatal hernia and hemostatic clips were placed. Since that time, she has been on a dual PPI acid technical operations vice president therapy with Protonix and omeprazole both 40 mg that she states that she has not had any issues at home. She is here for followup to evaluate and verify healing of the ulcer. DESCRIPTION OF PROCEDURE: The patient was brought to the endoscopy suite and laid in the left lateral decubitus position. After adequate IV pain and sedative medications and monitored anesthesia care, a mouthpiece was applied. The endoscope was placed in the mouth to visualize the pharynx and hypopharyngeal region. Vocal cords, epiglottis and vallecula identified and appeared to be normal. The endoscope was then gently intubated with the esophageal opening. Esophagus was insufflated. The endoscope was then advanced into the first, second and third portion of the esophagus to the level of the GE junction. Reflux esophagitis, [place] grade B identified, the one remaining previously placed clip was retained within this area. There were no ulcerations, inflammation as well as no bleeding. A biopsy was taken to the GE junction with forceps with visualization with good hemostasis. The endoscope was then advanced in the stomach and the endoscope was retroflexed again visualizing a large type 1 sliding hiatal hernia. There was a [id number] gastritis. No ulcerations or any bleeding and a biopsy was taken of the antrum to rule out H. pylori with visualization and good hemostasis. The endoscope was then advanced through the pylorus and the first and second portion of the duodenum, which appeared normal with no distal obstructions. The endoscope was then slowly withdrawn while taking a second look and suctioning of residual air with no additional findings. The patient tolerated the procedure well. We will recommend continue medical management with the necessary lifestyle and dietary accommodations including small and more frequent meals, avoidance of eating at night as well as head elevation while lying supine. She also needs to avoid caffeinated beverages, spicy, greasy and acidic foods and we will also recommend continuation of dual PPI acid reduction therapy medication. Job ID: [id number] DocumentID: [id number] Dictated Date: 08/10/2022 11:02:09 Solar Development Engineer Date: 08/10/2022 21:31:00 Dictated By: RICARDO VALERIO MD MTDD
== END 2022-08-10 11:40 | disposition home or self-care (01) ==
LOC: ENDO 09:05
PROVIDERS: ATTEND Surgery
DX: K21.00 Gastro-esophageal reflux disease with esophagitis, without bleeding (principal); K44.9 Diaphragmatic hernia without obstruction or gangrene; K29.70 Gastritis, unspecified, without bleeding; E66.9 Obesity, unspecified; Z68.37 Body mass index [BMI] 37.0-37.9, adult; Z87.11 Personal history of peptic ulcer disease
CPT/HCPCS: 88305

== ENCOUNTER → 2022-09-01 | Outpatient (CLI) | payer MEDICARE, MEDICAID ==
--- NOTE | 2022-09-01 14:18 | Diagnostic Imaging Report ---
EXAMINATION: Magnetic resonance imaging of the left knee without intravenous contrast DATE: September 01, 2022. COMPARISON: None. INDICATION: 71-year-old female, fall. Left knee pain. TECHNIQUE: Multiplanar, multisequence non contrast enhanced MR imaging was accomplished. FINDINGS: MENISCI: There is an oblique tear with inferior surface extension involving the posterior horn of the medial meniscus. There is an extensive complex multidirectional tear involving the lateral meniscus. LIGAMENTS AND TENDONS: The anterior and posterior cruciate ligaments are intact. The medial collateral ligament is intact. The iliotibial band, mid third lateral capsular ligament, fibular collateral ligament, biceps femoris tendon and conjoined tendon are intact. The quadriceps tendon and patella ligament are intact. JOINT: There are broad areas of full-thickness cartilage loss of the lateral femoral condyle and lateral tibial plateau. There is underlying edema-like signal. The patellofemoral and medial compartment cartilage is grossly intact. There is a trace knee joint effusion. There is no identified intrajugular body or prominent synovitis. BONE: There is fairly prominent edema-like signal in the lateral tibial plateau and less prominent edema-like signal in the lateral femoral condyle. There is no visible fracture line. There are no pathognomonic signal changes of osteonecrosis. The additional bone marrow signal is grossly unremarkable. BURSAE AND SOFT TISSUES: There is a Huang's cyst cyst. There is fairly generalized subcutaneous cutaneous edema. IMPRESSION: 1. Extensive multidirectional tear involving the entire lateral meniscus. 2. Oblique tear with inferior surface extension involving the posterior horn of the medial meniscus. 3. Intact anterior and posterior cruciate ligaments. Additional ligaments and tendons are intact. 4. Severe lateral compartment osteoarthritis with trace knee joint effusion. No identified articular body or prominent synovitis. 5. Edema-like signal in the lateral tibial plateau which may be degenerative related although stress reaction or bone contusion are also considered. No current acute fracture. 6. Huang's cyst. Dictated by: Dictated on workstation # [id number]
== END ==
LOC: RAD 10:15
PROVIDERS: ATTEND Nurse Practitioner
DX: S83.282A Other tear of lateral meniscus, current injury, left knee, initial encounter (principal); S83.242A Other tear of medial meniscus, current injury, left knee, initial encounter; M17.12 Unilateral primary osteoarthritis, left knee; M71.22 Synovial cyst of popliteal space [Baker], left knee; W19.XXXA Unspecified fall, initial encounter
CPT/HCPCS: 73721

== ENCOUNTER 2022-10-03 11:42 | Emergency (ER) | payer MEDICARE, MEDICAID ==
[~2022-10-03] VITALS: Ht 172 cm; Wt 109.0 kg
--- NOTE | 2022-10-03 12:47 | ED Fall/Injury ---
General Chief Complaint: Trauma-Non Activation Stated Complaint: FALL | HEAD, ELBOW, KNEE INJURIES Nursing Triage Note: MECHANICAL FALL TODAY, REPORTS R KNEE AND ELBOW PAIN, ABRASION ON R EYEBROW. PAIN IN L KNEE 05/04, EDEMA NOTED TO L KNEE, REPORTS L KNEE PAIN/SWELLING X 2 MONTHS. Source: patient Exam Limitations: no limitations (LUBA POLANCO APRN) History of Present Illness Date Seen by Provider: Oct 03, 2022 Time Seen by Provider: 12:15 Initial Comments History received from patient. Patient is a 71-year-old female who presents to the emergency department after a mechanical fall just prior to arrival. She states she has some right knee pain, right elbow pain, and an abrasion on her right eyebrow. 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 She states she has some chronic left knee arthritis and swelling that she states affects her ambulation at times. She states she attempted to step up a small concrete step which led to her losing her balance and falling. She denies any other pain or injury. She is currently on Eliquis for history of A. fib. (LUBA POLANCO APRN) Allergies and Home Medications Allergies Coded Allergies: No Known Drug Allergies (Unverified , 04/22/22) Patient Home Medication List Home Medication List Reviewed: Yes (LUBA POLANCO APRN) Acetaminophen (Tylenol) 325 Mg Tablet, 325-650 MG PO Q8H PRN for PAIN-MILD (1- 4), (Reported) Entered as Reported by: SHARIF GONZÁLES on 05/06/21 0819 Apixaban (Eliquis) 5 Mg Tablet, 5 MG PO BID, (Reported) Entered as Reported by: KASSIE DANIELS on 08/03/22 1146 Biotin (Biotin) 10,000 Mcg Capsule, 10,000 MCG PO DAILY, (Reported) Entered as Reported by: ANGY LAO on 04/19/22 1154 Flecainide Acetate (Flecainide Acetate) 100 Mg Tablet, 100 MG PO BID, (Reported) Entered as Reported by: GEM CISNEROS on 12/23/21 0815 Fluoxetine HCl (Fluoxetine HCl) 20 Mg Capsule, 20 MG PO DAILY, (Reported) Entered as Reported by: SHARIF GONZÁLES on 05/06/21 0819 Losartan Potassium (Losartan Potassium) 100 Mg Tablet, 100 MG PO DAILY, (Reported) Entered as Reported by: ANGY LAO on 04/19/22 1154 Nebivolol HCl (Nebivolol HCl) 20 Mg Tablet, 20 MG PO BID, (Reported) Entered as Reported by: SHARIF GONZÁLES on 05/02/22 1015 Omeprazole (Omeprazole) 40 Mg Capsule.dr, 40 MG PO DAILY, (Reported) Entered as Reported by: KASSIE DANIELS on 08/03/22 1146 Pantoprazole Sodium (Protonix) 40 Mg Tablet.dr, 40 MG PO DAILY, (Reported) Entered as Reported by: KASSIE DANIELS on 08/03/22 1146 Sucralfate (Sucralfate) 1 Gram Tablet, 1 GM PO ACHS, (Reported) Entered as Reported by: KASSIE DANIELS on 08/03/22 1146 Review of Systems Review of Systems Constitutional: no symptoms reported Eyes: No Symptoms Reported Ears, Nose, Mouth, Throat: no symptoms reported Respiratory: no symptoms reported Cardiovascular: no symptoms reported Gastrointestinal: no symptoms reported Genitourinary: no symptoms reported Musculoskeletal: see HPI Skin: see HPI Psychiatric/Neurological: No Symptoms Reported (LUBA POLANCO APRN) Past Yndufso-Wyshls-Vitjum Hx Patient Social History Tobacco Use?: No Use of E-Cig and/or Vaping dev: No Substance use?: No Alcohol Use?: Yes Alcohol type: Wine Alcohol Frequency: Several times a month Pt feels they are or have been: No (LUBA POLANCO APRN) Immunizations Up To Date Tetanus Booster (TDap): Unknown PED Vaccines UTD: No Influenza Vaccine Up-to-Date: Yes; Up-to-Date First/Initial COVID19 Vaccinat: 12/13 Second COVID19 Vaccination Sree: 01/13 Third COVID19 Vaccination Date: 12/13 (LUAB POLANCO APRN) Seasonal Allergies Seasonal Allergies: No (LUBA POLANCO APRN) Past Medical History Surgery/Hospitalization HX: Biopsy of tongue, Afib requiring hospitalization, dehydration requiring hospitalization, broken hand in Oct. Surgeries: Yes (LAP OVARIAN CYSTECT LISA;ERCP;COLONOSCOPY;OOPHORECTOMY;CATARACT;TONGUE BX) Eye Surgery, Gallbladder, Oophorectomy Respiratory: Yes Sleep Apnea Currently Using CPAP: No Currently Using BIPAP: No Cardiac: Yes (AFIB- CARDIOVERSION SEPTEMBER AND DECEMBER 2021 (DR. 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 Sexually Transmitted Disease: No HIV/AIDS: No Genitourinary: Yes UTI-Chronic Gastrointestinal: Yes Gastroesophageal Reflux, Diverticulosis, Hiatal Hernia, Ulcer Musculoskeletal: Yes Fractures Endocrine: No HEENT: Yes (POOR DENTITION; CHRONIC TONGUE ULCER) Cataract Loss of Vision: Bilateral Hearing Impairment: Denies Cancer: No Psychosocial: Yes Anxiety, Depression Integumentary: Yes Psoriasis Blood Disorders: No Adverse Reaction/Blood Tranf: No (N/A) (LUBA POLANCO APRN) Family Medical History No Family History of: AIDS Abdominal aortic aneurysm Oark's disease Alcoholism Alzheimer's disease Aphasia Arthritis Asthma Cancer of mouth Cardiovascular disease Cataracts Colon cancer Completed stroke Congenital disease Congenital heart disease Coronary thrombosis Cystic fibrosis Deafness or hearing loss Dementia Diabetes mellitus Drug abuse Dysphasia Fibrocystic disease of breast Gastroenteritis Glaucoma Headache disorder Hypercholesterolemia Hypertension Infertility Kidney disease Myocardial infarction Neoplasm (PT HAD 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 0.0oz. 127.487773mi; 36.00 BMI Method:Stated General Appearance: WD/WN, no apparent distress HEENT: PERRL/EOMI, normal ENT inspection, TMs normal, pharynx normal Neck: non-tender, full range of motion, supple, normal inspection Cardiovascular: regular rate, rhythm Respiratory: chest non-tender, lungs clear, normal breath sounds, no respiratory distress, no accessory muscle use Gastrointestinal: normal bowel sounds, non tender, soft Superficial abrasion noted to the right eyebrow; patient endorses some mild tenderness to palpation to the lateral right knee and the lateral right elbow; patient has full range of motion of both the right elbow and right knee without significant provocation of pain; there is notable swelling to the left knee that patient states is chronic and unchanged (LUBA POLANCO APRN) Paige Coma Score Best Eye Response: (4) Open Spontaneously Best Verbal Response: (5) Oriented Best Motor Response: (6) Obeys Commands Ken Total: 15 (LUBA POLANCO APRN) Progress/Results/Core Measures Results/Orders Vital Signs/I&O 10/03/22 10/03/22 11:50 13:06 Temp 36.5 Pulse 69 68 Resp 18 16 B/P (MAP) 144/67 (92) 137/70 Pulse Ox 97 97 O2 Delivery Room Air Room Air (WILMA,HOA K DO) Blood Pressure Mean: 92 Progress Progress Note : Progress Note Patient is nontoxic and well-hydrated on exam. No adventitious lung sounds or increased work of breathing noted. Patient is awake alert and oriented without any focal neurologic deficits. Patient is able to ambulate without issue. She states she does not think her knee or elbow are seriously injured. She also thinks that she does not need any imaging of her head. I offered imaging of all of these areas but patient declined at this time. She states she did not want to come to the ER but nursing responded and recommended she be evaluated. I stated that patient appears to be very well-appearing and there is a very low likelihood of any significant injury. However I did state patient was at a slightly increased risk of head bleed due to being on Eliquis. She persisted her desire to not have any imaging and be discharged. I discussed reasons for her to return to the ER for any concerning symptoms. She verbalized unde rstanding. (LUBA POLANCO APRN) Departure Impression Primary Impression: Contusion of right knee Qualified Codes: S80.01XA - Contusion of right knee, initial encounter Additional Impressions: Abrasion of right elbow Qualified Codes: S50.311A - Abrasion of right elbow, initial encounter Forehead abrasion Qualified Codes: S00.81XA - Abrasion of other part of head, initial encounter Disposition: HOME, SELF-CARE Condition: Stable Departure-Patient Inst. Decision time for Depature: 12:45 (LUBA POLANCO APRN) Referrals: [facility] (PCP/Family) Primary Care Physician Patient Instructions: Abrasions ED, Minor Contusion ED Add. Discharge Instructions: Please return to the emergency department if you develop any concerning symptoms. Follow-up with your regular doctor in the near future for further evaluation. All discharge instructions reviewed with patient and/or family. Voiced understanding. ATTENDING PHYSICIAN NOTE: I WAS PHYSICALLY PRESENT ER PHYSICIAN, BUT I WAS NOT INVOLVED IN ANY DECISION MAKING OR ANY CARE OF THIS PATIENT, AND I AM NOT COLLABORATING PHYSICIAN. (HOA DILLON DO) LUBA POLANCO APRN Oct 03, 2022 12:47 HOA DILLON DO Oct 06, 2022 00:35
[2022-10-03 13:06] VITALS: BP 137/70
== END 2022-10-03 13:06 | disposition left against medical advice (07) ==
LOC: EDUNIT# 11:42 → ER 11:45
DX: S80.01XA Contusion of right knee, initial encounter (principal); S50.311A Abrasion of right elbow, initial encounter; S00.81XA Abrasion of other part of head, initial encounter; S00.211A Abrasion of right eyelid and periocular area, initial encounter; I48.91 Unspecified atrial fibrillation; Z79.01 Long term (current) use of anticoagulants; W01.0XXA Fall on same level from slipping, tripping and stumbling without subsequent striking against object, initial encounter; Y93.89 Activity, other specified
CPT/HCPCS: 99282

== ENCOUNTER → 2022-11-07 | Outpatient (CLI) | payer MEDICARE, MEDICAID | LOC: CARD 15:56 | PROVIDERS: ATTEND Internal Medicine Cardiovascular Disease | DX: I10 Essential (primary) hypertension (principal); I25.10 Atherosclerotic heart disease of native coronary artery without angina pectoris ==

== ENCOUNTER 2023-01-18 09:22 | Outpatient (RCR) | payer MEDICARE, MEDICAID | END 2023-01-22 | disposition home or self-care (01) | PROVIDERS: ATTEND Pain Medicine Interventional Pain Medicine | DX: M51.16 Intervertebral disc disorders with radiculopathy, lumbar region (principal); M47.26 Other spondylosis with radiculopathy, lumbar region; M48.061 Spinal stenosis, lumbar region without neurogenic claudication ==

== ENCOUNTER 2023-01-18 09:22 | Outpatient (RCR) | payer MEDICARE, MEDICAID | END 2023-01-22 | disposition home or self-care (01) | PROVIDERS: ATTEND Orthopaedic Surgery | DX: M17.12 Unilateral primary osteoarthritis, left knee (principal); R26.89 Other abnormalities of gait and mobility; M54.50 Low back pain, unspecified ==

== ENCOUNTER 2023-02-21 13:57 | Outpatient (RCR) | payer MEDICARE, MEDICAID ==
[~2023-02-21 13:57] MED LIST changes: -LOSA100T57 PO; +LOSA100T58 PO
== END 2023-02-22 | disposition home or self-care (01) ==
PROVIDERS: ATTEND Pain Medicine Interventional Pain Medicine
DX: M51.16 Intervertebral disc disorders with radiculopathy, lumbar region (principal); M47.26 Other spondylosis with radiculopathy, lumbar region; M48.061 Spinal stenosis, lumbar region without neurogenic claudication

== ENCOUNTER 2023-02-21 13:57 | Outpatient (RCR) | payer MEDICARE, MEDICAID | END 2023-02-22 | disposition home or self-care (01) | PROVIDERS: ATTEND Orthopaedic Surgery | DX: M17.12 Unilateral primary osteoarthritis, left knee (principal); R26.89 Other abnormalities of gait and mobility; M54.50 Low back pain, unspecified ==

== ENCOUNTER 2023-03-16 13:19 | Outpatient (RCR) | payer MEDICARE, MEDICAID | END 2023-03-17 11:05 | disposition home or self-care (01) | PROVIDERS: ATTEND Orthopaedic Surgery | DX: M17.12 Unilateral primary osteoarthritis, left knee (principal); M54.50 Low back pain, unspecified; I10 Essential (primary) hypertension ==

== ENCOUNTER 2023-03-16 13:20 | Outpatient (RCR) | payer MEDICARE, MEDICAID | END 2023-03-17 11:14 | disposition home or self-care (01) | PROVIDERS: ATTEND Pain Medicine Interventional Pain Medicine | DX: M51.16 Intervertebral disc disorders with radiculopathy, lumbar region (principal); M47.26 Other spondylosis with radiculopathy, lumbar region; M48.061 Spinal stenosis, lumbar region without neurogenic claudication ==

== ENCOUNTER 2023-06-22 10:12 | Outpatient (RCR) | payer MEDICARE, MEDICAID | END 2023-06-24 | disposition home or self-care (01) | PROVIDERS: ATTEND Orthopaedic Surgery | DX: Z47.1 Aftercare following joint replacement surgery (principal); Z96.652 Presence of left artificial knee joint ==

== ENCOUNTER 2023-07-05 11:15 | Outpatient (RCR) | payer MEDICARE, MEDICAID | END 2023-07-25 | disposition home or self-care (01) | PROVIDERS: ATTEND Orthopaedic Surgery | DX: Z47.1 Aftercare following joint replacement surgery (principal); I10 Essential (primary) hypertension; Z96.652 Presence of left artificial knee joint ==

== ENCOUNTER 2023-08-02 05:39 | Outpatient (CLI) | payer MEDICARE, MEDICAID ==
[~2023-08-02] VITALS: Ht 168.9 cm; Wt 112.0 kg
== END 2023-08-04 14:35 | disposition home or self-care (01) ==
LOC: PREOP 05:39
PROVIDERS: ATTEND Surgery
DX: Z01.818 Encounter for other preprocedural examination (principal)

== ENCOUNTER 2023-08-15 06:56 | Day surgery (SDC) | payer MEDICARE, MEDICAID ==
[~2023-08-15] VITALS: Ht 168.9 cm; Wt 112.0 kg
[2023-08-15] MEDS ORDERED: LACTATED RINGERS 1,000 ML 1,000 ML IV STA (07:05)
[2023-08-15] MEDS ORDERED: ceFAZolin INJECTION 2,000 MG in NS (IVPB) 50 ML 50 ML IV ONE (07:15)
[2023-08-15 07:28] VITALS: BP 160/87
--- NOTE | 2023-08-15 09:32 | Progress Note-Post Operative ---
Post-Operative Progess Note Surgeon (s)/Weatherization And Housing Inspector (s) Surgeon KHANH CATES DO Weatherization And Housing Inspector: n/a Pre-Operative Diagnosis Screening Post-Operative Diagnosis Colon polyps, Diverticulosis, Anal mucosal changes Procedure & Operative Findings Date of Procedure 08/15/23 Procedure Performed/Findings colonoscopy with hot bx polypectomy x6 and cold biopsies anus Anesthesia Type per GLASS TINTER Estimated Blood Loss Estimated blood loss (mL): none Specimens/Packing Specimens Removed ascending colon, transverse colon, descending colon, anus KHANH CATES DO Aug 15, 2023 09:32
--- NOTE | 2023-08-15 09:34 | Discharge Inst-Simple/Standard ---
Discharge Inst-Standard Patient Instructions/Follow Up Plan of Care/Instructions/FU: 2 weeks Alix Restart Eliquis in 4 days Activity as Tolerated: Yes Discharge Diet: Regular Diet KHANH CATES DO Aug 15, 2023 09:34
[2023-08-15 09:35] VITALS: BP 138/73
--- NOTE | 2023-08-15 09:36 | Anesthesia-General Post-Op ---
MAC Patient Condition Mental Status/LOC: Same as Preop Cardiovascular: Satisfactory Nausea/Vomiting: Absent Respiratory: Satisfactory Pain: Controlled Complications: Absent Post Op Complications Complications None Follow Up Care/Instructions Patient Instructions None needed. Anesthesiology Discharge Order Discharge Order Patient is doing well, no complaints, stable vital signs, no apparent adverse anesthesia problems. No complications reported per nursing. HILLARY COX CRNA Aug 15, 2023 09:36
[2023-08-15 09:47] VITALS: BP 138/73
[2023-08-15 09:55] VITALS: BP 138/73
--- NOTE | 2023-08-15 15:46 | OPERATIVE REPORT ---
DATE OF SERVICE: 08/15/2023 PREOPERATIVE DIAGNOSIS: History of polyps. POSTOPERATIVE DIAGNOSES: Colon polyps, diverticulosis and a mucosal change. PROCEDURE: Colonoscopy with hot biopsy polypectomy x6. Cold biopsies of the anus. SURGEON: Khanh Thomson DO ANESTHESIA: Per LOOP DRIER OPERATOR. ESTIMATED BLOOD LOSS: Scant. COMPLICATIONS: None. INDICATIONS: The patient is a 72-year-old female with history of polyps. She understands risks and benefits of procedure and wished to proceed. Consent was signed in chart. DESCRIPTION OF PROCEDURE: The patient was taken to endoscopy suite, placed in left lateral recumbent position. Timeout was performed. Digital rectal exam was performed noting a posterior anal mucosal change. No masses or ulcerations and internal hemorrhoids. Scope was inserted in the rectum and advanced all the way to the cecum. There were no polyps, masses or ulcerations within the cecum. The ileocecal valve was visualized and prep was adequate with irrigation and suction. Scope was then slowly retracted back. No polyps, masses or ulcerations in the cecum. Ascending colon had 3 polyps, which hot biopsy polypectomy was performed. Scope was then continuously retracted back in the transverse colon, which had another 2 polyps present, which hot biopsy polypectomy was performed. Scope was then continuously retracted back into the descending colon, which another polyp was present, which hot biopsy polypectomy was performed. Throughout the colon, she had diverticula present. The sigmoid had no polyps, masses or ulcerations visualized. Once in the rectum, scope was retroflexed noting internal hemorrhoids. Scope was then slowly retracted back in the posterior portion of the anal canal mucosal change, which cold biopsies were obtained. Scope was then slowly retracted back until completely removed. The patient tolerated the procedure well without complications, taken to recovery room in stable condition. RECOMMENDATIONS: The patient will follow up on pathology. We would recommend repeat colonoscopy in 3-5 years pending upon pathology. I would recommend high fiber diet due to diverticulosis. Any issues be seen at that time. Job ID: [id number] DocumentID: [id number] Dictated Date: 08/15/2023 09:36:19 [employer] Manager Date: 08/15/2023 15:44:00 Dictated By: KHANH THOMSON DO
== END 2023-08-15 10:23 | disposition home or self-care (01) ==
LOC: ENDO 06:56
PROVIDERS: ATTEND Surgery
DX: Z12.11 Encounter for screening for malignant neoplasm of colon (principal); D12.2 Benign neoplasm of ascending colon; D12.3 Benign neoplasm of transverse colon; D12.4 Benign neoplasm of descending colon; D12.9 Benign neoplasm of anus and anal canal; K57.30 Diverticulosis of large intestine without perforation or abscess without bleeding; K64.8 Other hemorrhoids; E66.9 Obesity, unspecified; Z68.39 Body mass index [BMI] 39.0-39.9, adult
CPT/HCPCS: 45380; 45384; G0416; 88305